=== PATIENT | male | born 1935 | race Caucasian/White ===

== ENCOUNTER 2017-05-26 13:40 | Outpatient (CLI) | payer MEDICARE, BC | END 2017-05-26 13:41 | disposition home or self-care (01) | LOC: BICRAD 13:40 | PROVIDERS: ATTEND Internal Medicine Nephrology | DX: Z03.89 Encounter for observation for other suspected diseases and conditions ruled out (principal) | CPT/HCPCS: 71046 ==

== ENCOUNTER 2017-08-02 12:33 | Outpatient (CLI) | payer MEDICARE, BC | END 2017-08-02 12:34 | disposition home or self-care (01) | LOC: BICULT 12:33 | PROVIDERS: ATTEND Internal Medicine Nephrology | DX: Z99.2 Dependence on renal dialysis (principal); Z01.818 Encounter for other preprocedural examination | CPT/HCPCS: 93970; G0365 ==

== ENCOUNTER 2017-08-30 11:38 | Day surgery (SDC) | payer MEDICARE, BC ==
--- NOTE | 2017-08-29 11:39 | HP ---
HISTORY OF PRESENT ILLNESS: This is an 81-year-old male patient who dialyzes at [facility] Tuesday, Tuesday, Tuesday from 10:30 to 2:30. The patient is followed by Dr. Betancourt and Dr Demi Marrero. The plan is for a right arm AV fistula. The patient had a right IJ hemodialysis catheter p laced at the end of May [address] Cano. Ultrasound vein mapping both arms at [facility] 08/02/2017 reveals right cephalic vein, 5.5, 4.6, 5.3 mm, 4.9 mm. Antecubital fossa, 2.5, 2. 8, 2.5 mm. Basilic vein right 3 mm, 3.1 mm, 3.1 mm, 2.5 mm. The antecubital fossa 1.6, 1.9 and 1.8 mm. The left cephalic vein 5.3, 4.6, 4.1. Antecubital fossa 4.5 mm, proximal forearm, 3.9, 2.5, 1.6 mm. Basilic vein 5.8, 3.2, 2.9 and 2 mm at the elbow, left. Nonvisualized distal left arm. The pl an is for right arm fistula, possible Aaron, possible more proximal. Regional TIVA anesthesia. TOBACCO: None. ALCOHOL: None. ALLERGIES: None. MEDICATIONS: Aspirin 81 mg a day, clonidine 0.1 mg a day, Cymbalta 60 mg a.m., diltiazem 180 mg twic e a day, lorazepam 1 mg 1/2 tablet twice a day, Lovaza 1000 mg a.m., magnesium oxide 400 mg two capsu les twice a day, metoprolol 25 mg 1/2 tablet daily always after dialysis, Multaq 400 mg twice a day, Pradaxa 75 mg twice a day, prednisone 20 mg at a.m., terazosin 5 mg at bedtime, TriCor 145 mg at bedt polina, vitamin B12 and vitamin D3. Hepatitis studies negative. PAST SURGICAL HISTORY: Appendectomy by Dr. Pedro Herring in 1985, right knee arthroscopy 1988, right ing uinal hernia repair Michael Manning M.D. 1991, Cataract surgery, right, Dr. Stroud 1997, bilateral kne e replacements 4 months apart 2002, good results. Colonoscopy 2002, Dr. Leung 2003, BPH Dr. Aaron wilson. Cardiac catheterization, no significant disease [address] Fournier, atrial fibrillation in 200 , 2007, 2008, again in 2008 and another episode in 2008 and later in 2008. Another episode in 2009. Another episode in later 2009 and then another one later 2009. Episodes of atrial fibrillation in 2010 and July. Cystoscopy. Cysto with bladder neck contractures dilated Atrial fibrillation followed by Dr. Lopez, pacemaker placed in [address] Lopez. Sleep stud y in 2013 diagnosed with sleep apnea, skin cancers removed, temporal artery biopsy 2015 Dr. Akbar, no acute findings, no inflammation. Cardiac stress test by Dr. Lopez 2016, no significant ischemia , no wall motion abnormalities. PAST MEDICAL HISTORY: As noted above past medical history; polycystic kidneys, hypertension, hypertr iglyceridemia, atrial fibrillation, cardiac stress test without significant ischemia, obstructive sle ep apnea. He does not use his CPAP, benign resting tremor followed Dr. Nunez, has had multiple CAT scans negative. He has had this, benign resting tremor most of his life. 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 He is right-handed. REVIEW OF SYSTEMS: Ten point otherwise noncontributory. PHYSICAL EXAMINATION: VITAL SIGNS: Weight 211 pounds, 69 inches, 104/57, 82, 98.1 degrees. HEENT: Unremarkable. LUNGS: Clear to auscultation. CARDIAC: Regular rate and rhythm without murmur or gallop. ABDOMEN: Soft, nontender. EXTREMITIES: Unremarkable. Mild ankle edema. ASSESSMENT AND PLAN: 1. End-stage renal disease, started dialysis at the end of May 2017, dialysis catheter placed by Dr. Cano at outpatient dialysis center. [facility] dial[facility] at [facility] on M , Tuesday, and Tuesday from 10:30 to 2:30 p.m. Plan right arm fistula. He will hold his Gustavo xa for 3 days prior. 2. Atrial fibrillation on anticoagulation, hold the Pradaxa 3 days prior. 3. Polycystic kidneys. 4. Negative cardiac stress test. 5. Pacemaker left subclavian. 6. Benign tremor. 7. Abdominal aortic aneurysm seen by Dr. Aric Cohen referred and patient [facility] to have this stented in the future.
[2017-08-29 18:00] VITALS: BMI 30.5
[2017-08-30] MEDS ORDERED: Fentanyl 100 MCG/2 ML VIAL ONE (12:35)
[2017-08-30] MEDS ORDERED: Midazolam HCl 2 mg/2 ml Vial ONE (12:35)
[2017-08-30 13:03] LABS: #Lymphocytes 1.1 thou/uL (1.20-3.40); #Monocytes 0.7 thou/uL (0.11-0.59); #Neutrophils 3.6 thou/uL (1.40-6.50); %Basophils 0.1 % (0.0-1.0); %Eosinophils 0.8 % (0.0-10.0); %Lymphocytes 20.4 % (21.0-51.0); %Neutrophils 65.6 % (42.0-75.0); Mean Corpuscular HGB CONC 31.3 g/dL (32.0-36.0); Mean Corpuscular Hemoglobin 28.1 pg (27.0-31.0); Mean Corpuscular Volume 89.7 fl (80.0-94.0); Mean Platelet Volume 6.7 fL (7.4-10.4); Platelet Count 164 thou/uL (130-400); RBC Distribution Width 16.3 % (11.5-14.5); Red Blood Cell (RBC) Count 3.91 mill/uL (4.70-6.10); White Blood Cell (WBC) Count 5.5 thou/uL (4.8-10.8)
[2017-08-30] MEDS ORDERED: Protamine Sulfate 50 MG/5 ML VIAL ONE ×2 (13:25→13:36)
[2017-08-30] MEDS ORDERED: Heparin 5,000 UNITS/ML VIAL ONE ×2 (13:25→13:36)
[2017-08-30] MEDS ORDERED: Propofol 500 MG/50 ML VIAL ONE (13:27)
[2017-08-30 13:28] LABS: Anion Gap 13 mmol/L (10-20); BUN (Urea Nitrogen) 29 mg/dL (8.4-25.7); Calc. Creatinine Clearance 16 mL/min (70-130); Calcium 9.7 mg/dL (7.8-10.44); Carbon Dioxide 31 mmol/L (23-31); Chloride 99 mmol/L (98-107); Estimated GFR-MDRD 11; Glucose 99 mg/dL (83-110); Potassium 3.5 mmol/L (3.5-5.1); Sodium 139 mmol/L (136-145)
[2017-08-30] MEDS ORDERED: Lidocaine 2% 10 ML INJ ONE (13:30)
[2017-08-30] MEDS ORDERED: Heparin 10,000 UNITS/1 ML VIAL ONE (13:32)
[2017-08-30] MEDS ORDERED: CEFAZOLIN/Water 2 GM/20 ML SYRINGE ONE (13:33)
--- NOTE | 2017-08-30 15:15 | OP ---
DATE OF PROCEDURE: 08/30/2017 PREOPERATIVE DIAGNOSIS: End-stage renal disease, left subclavian vein pacemaker. POSTOPERATIVE DIAGNOSIS: End-stage renal disease, left subclavian vein pacemaker. PROCEDURES: Right Aaron fistula. A 4 mm coronary dilator outflow. SURGEON: Dr. Michael Manning. ANESTHESIA: Regional, TIVA. PROCEDURE IN DETAIL: The patient was taken to the operating room where under regional anesthesia and intravenous sedation, right upper extremity was prepared with ChloraPrep, draped in routine fashion. Incision made between the radial artery and cephalic vein at the right wrist longitudinally, charlee d down through the skin and subcutaneous tissue and the cephalic vein dissected free, dividing branch between 4-0 silk ties and clips, ligating the stump on the hand side with 3-0 silk suture. Vein spa tulated and interrogated with coronary dilators, passing coronary dilators from a 2 mm to a 4 mm arline nary dilator throughout the length without obstruction. It was then flushed with heparinized saline solution. Bulldog clamp applied. Patient given 6000 units of heparin intravenously. Radial artery dissected free, was of good quality and branch divided between 4-0 silk ties and clips. Vein mobiliz ed and clamped proximally and distally with atraumatic vascular clamp and longitudinal arteriotomy ma de sharply and elongated with the Lala scissors end cephalic vein spatulated accordingly and end vei n to side radial artery anastomosis created with continuous suture of 6-0 Prolene. Good hemostasis n oted as vascular clamps released. Good flow noted in the cephalic vein fistula interrogated by Doppl er. Outflow branch divided between 4-0 silk ties and clips. Patient tolerated the procedure well.
[2017-08-30] MEDS ORDERED: Heparin 10,000 UNITS/ 10 ML VIAL ONE ×2 (15:57→16:36)
[2017-08-30] MEDS ORDERED: Bupivacaine HCl 0.5%/Epinephrine 1:200,000/PF 30 ml Vial ONE (16:25)
[2017-08-30] MEDS ORDERED: Lidocaine 1% PF 5 ML VIAL ONE (16:36)
[2017-08-30] MEDS ORDERED: PROPOFOL 200 MG/20 ML VIAL ONE (16:36)
== END 2017-08-30 16:45 | disposition home or self-care (01) ==
LOC: SDC 11:38
PROVIDERS: ATTEND Specialist
PROC: 031B0ZF Bypass Right Radial Artery to Lower Arm Vein, Open Approach (ICD-10-PCS; principal; 2017-08-30)
DX: I12.0 Hypertensive chronic kidney disease with stage 5 chronic kidney disease or end stage renal disease (principal); N18.6 End stage renal disease; I48.91 Unspecified atrial fibrillation; Z95.0 Presence of cardiac pacemaker; E78.5 Hyperlipidemia, unspecified; G25.0 Essential tremor; Q61.3 Polycystic kidney, unspecified; G47.33 Obstructive sleep apnea (adult) (pediatric); Z79.82 Long term (current) use of aspirin; Z79.52 Long term (current) use of systemic steroids; Z79.899 Other long term (current) drug therapy; Z88.5 Allergy status to narcotic agent; Z88.8 Allergy status to other drugs, medicaments and biological substances; Z91.041 Radiographic dye allergy status; Z91.048 Other nonmedicinal substance allergy status; Z99.2 Dependence on renal dialysis
CPT/HCPCS: 80048; 85025; 93005; 93010; J0670; J1644; J2001; J2250; J2704; J2720; J3010

== ENCOUNTER 2017-12-07 08:18 | Outpatient (CLI) | payer MEDICARE, BC ==
--- NOTE | 2017-12-07 10:04 | CT ---
CT ANGIOGRAM ABDOMEN AND PELVIS WITH CONTRAST: Date: 12/07/17 HISTORY: Abdominal aortic aneurysm. I71.4. I25.1. COMPARISON: CT abdomen without contrast from 2010. FINDINGS: Lung bases are clear. No pericardial effusion. There are multiple hepatic hypodensities suggestive of cysts. There are innumerable bilateral renal cysts. The well-defined fluid collection in the pelvis is simil ar to the comparison examination, likely benign entity. No dilated loops of large or small bowel. Spleen is unremarkable. There is mild fatty infiltration of the pancreas. There is an aortic aneurysm, multiple focal areas of ectasia. Aneurysm measures up to 5.5 cm for a cr aniocaudad length of 8.7 cm. There is also dilatation of the penetrating plaque. Left common iliac ar aislinn measures up to 2.0 cm. Moderate facet arthrosis lower lumbar spine. Small, fat-containing umbilical hernia. IMPRESSION: 1. Aneurysmal dilatation of the aorta as described above. 2. Polycystic kidney disease. 3. Multiple hepatic cysts. POS: [facility]
[2017-12-07] MEDS ORDERED: Iopamidol 370 76% 100 ML VIAL ONE (15:00)
== END 2017-12-07 08:19 | disposition home or self-care (01) ==
LOC: CT 08:18
PROVIDERS: ATTEND Internal Medicine Cardiovascular Disease
DX: I71.4 Abdominal aortic aneurysm, without rupture (principal); E78.4 Other hyperlipidemia; I25.10 Atherosclerotic heart disease of native coronary artery without angina pectoris; I11.0 Hypertensive heart disease with heart failure; N18.5 Chronic kidney disease, stage 5; N17.9 Acute kidney failure, unspecified; I48.91 Unspecified atrial fibrillation; R94.31 Abnormal electrocardiogram [ECG] [EKG]
CPT/HCPCS: 74174

== ENCOUNTER 2018-04-10 08:35 | Outpatient (CLI) | payer MEDICARE, BC ==
--- NOTE | 2018-04-10 15:14 | CT ---
CT ANGIOGRAM ABDOMEN AND PELVIS WITH AND WITHOUT CONTRAST: HISTORY: Aortic aneurysm. Endoluminal graft repair. COMPARISON: CTA 12/07/2017. FINDINGS: CT angiogram on the abdomen and pelvis performed after the intravenous administration of contrast and performed prior to the intravenous administration of contrast. Three-D rendering is provided. On the noncontrast portion of the examination, there is mild atelectasis in the lung bases. No peric ardial effusion. No intraluminal hematoma. Satisfactory appearance of the endoluminal repair of the aortic aneurysm. The graft excludes the aor tic aneurysm with exclusion of the left common iliac artery aneurysm. There is, however, contrast e xtending from the proximal graft into the sac along with what appears to be the junction of the aorti c and the iliac graft components. This appears to occur at the junction of the 2 separate modular co mponents of the graft best seen on the axial image 251 of series 8. The aortic aneurysm measures 5.2 x 5.4 for a craniocaudal length of 8.9 cm. This is similar in size to the comparison examination. There are polycystic kidneys. No dilated loops of large or small bowel. IMPRESSION: Type III-A endoleak without significant size increase of the excluded aneurysm sac. POS: [facility]
== END 2018-04-10 08:36 | disposition home or self-care (01) ==
LOC: SCSCT 08:35
PROVIDERS: ATTEND Internal Medicine
DX: Z48.812 Encounter for surgical aftercare following surgery on the circulatory system (principal); I71.4 Abdominal aortic aneurysm, without rupture; T82.330A Leakage of aortic (bifurcation) graft (replacement), initial encounter
CPT/HCPCS: 74174; 82565

== ENCOUNTER 2018-08-03 13:22 | Outpatient (CLI) | payer MEDICARE, BC ==
--- NOTE | 2018-08-03 15:05 | CT ---
HEAD CT WITHOUT CONTRAST: DATE: 08/03/2018. COMPARISON: None. HISTORY: Altered mental status: TECHNIQUE: Axial CT imaging obtained at 5 mm intervals from the vertex through the skull base without contrast. FINDINGS: There is atherosclerotic calcification of the cavernous carotid arteries. There is no displaced calv arial fracture, intracranial hemorrhage, midline shift, or mass effect. There is stable mild enlarge ment of the lateral ventricles and the third ventricle. There is periventricular hypodensity suggest ing small-vessel disease, stable. IMPRESSION: Stable appearance of the head demonstrating prominence of the ventricular system and periventricular hypodensity. In the proper clinical setting, normal pressure hydrocephalus cannot be excluded. Clin ical correlation is required. If clinically indicated, further assessment via MRI could be beneficia l. POS: [facility]
== END 2018-08-03 13:23 | disposition home or self-care (01) ==
LOC: CT 13:22
PROVIDERS: ATTEND Family Medicine
DX: R41.82 Altered mental status, unspecified (principal)
CPT/HCPCS: 70450

== ENCOUNTER 2018-08-11 10:09 | Inpatient (IN) | payer MEDICARE, BC ==
[2018-08-11 11:24] LABS: Clarity Turbid (Clear); Specific Gravity, Urine 1.023 (1.002-1.036); pH, Urine 7.8 (5.0-9.0)
[2018-08-11 11:25] LABS: Bilirubin Unable to Interpret (Negative); Blood, Urine Unable to Interpret (Negative); Glucose, Urine (Dipstick) Unable to Interpret mg/dL (Negative); Leukocyte Unable to Interpret (Negative); Nitrite Unable to Interpret (Negative); Protein, Urine (Dipstick) Unable to Interpret mg/dL (Neg-Trace); Urobilinogen UNABLE TO INTERPRET mg/dL (0.2-1.0)
[2018-08-11 11:26] LABS: RBC/HPF GREATER THAN 50-TNTC HPF (0-3)
[2018-08-11 11:28] LABS: Squamous Epithelial None Seen HPF (0-3)
[2018-08-11 11:31] LABS: Bacteria/HPF Rare-Few HPF (None Seen); Hyaline Casts/LPF NONE SEEN LPF (0-3 Hyaline)
[2018-08-11 11:39] LABS: #Lymphocytes 0.7 thou/uL (1.20-3.40); #Neutrophils 8.6 thou/uL (1.40-6.50); %Basophils 0.1 % (0.0-1.0); %Eosinophils 0.1 % (0.0-10.0); %Monocytes 9.2 % (0.0-10.0); %Neutrophils 83.6 % (42.0-75.0); Hemoglobin 9.3 g/dL (14.0-18.0); Mean Corpuscular HGB CONC 31.3 g/dL (32.0-36.0); Mean Corpuscular Hemoglobin 29.4 pg (27.0-31.0); Mean Corpuscular Volume 94.1 fL (78.0-98.0); Mean Platelet Volume 7.1 fL (7.4-10.4); Platelet Count 128 thou/uL (130-400); RBC Distribution Width 17.3 % (11.5-14.5); Red Blood Cell (RBC) Count 3.16 mill/uL (4.70-6.10); White Blood Cell (WBC) Count 10.3 thou/uL (4.8-10.8)
[2018-08-11 12:03] LABS: ALT (SGPT) 14 U/L (8-55); AST (SGOT) 26 U/L (5-34); Albumin 3.1 g/dL (3.4-4.8); Alkaline Phosphatase 39 U/L (40-150); Anion Gap 14 mmol/L (10-20); BUN (Urea Nitrogen) 52 mg/dL (8.4-25.7); Bilirubin, Total 0.6 mg/dL (0.2-1.2); Calc. Creatinine Clearance 0 mL/min (70-130); Calcium 8.6 mg/dL (7.8-10.44); Carbon Dioxide 30 mmol/L (23-31); Chloride 95 mmol/L (98-107); Estimated GFR-MDRD 11; Globulin 2.7 g/dL (2.4-3.5); Glucose 106 mg/dL (83-110); Potassium 4.1 mmol/L (3.5-5.1); Protein, Total 5.8 g/dL (5.8-8.1); Sodium 135 mmol/L (136-145)
[2018-08-11] MEDS ORDERED: Bisacodyl 5 MG TAB PO PRN (16:17)
[2018-08-11] MEDS ORDERED: Nitroglycerin 0.4 MG TAB (25 Tab Bottle) SL PRN (16:17)
[2018-08-11] MEDS ORDERED: hydrALAZINE 20 MG/ML VIAL SLOW IVP PRN (16:17)
[2018-08-11] MEDS ORDERED: Benzonatate 100 MG CAP PO PRN (16:17)
[2018-08-11] MEDS ORDERED: Ondansetron PF 4 MG/2 ML Vial IVP PRN (16:17)
[2018-08-11] MEDS ORDERED: Senokot S 8.6-50 MG TAB PO PRN (16:17)
[2018-08-11] MEDS ORDERED: cloNIDine 0.1 MG TAB PO PRN (16:17)
[2018-08-11 16:44] VITALS: BMI 22.5
--- NOTE | 2018-08-11 17:52 | HP ---
PRIMARY CARE PHYSICIAN: Sabas Marrero MD PRIMARY UROLOGIST: Aric Jaeger MD PRIMARY INVENTORY TRANSCRIBER: Jf Lopez MD CHIEF COMPLAINT: Blood in the urine. HISTORY OF PRESENTING ILLNESS: Mr. Stanley is a very pleasant 82-year-old male with past medical history of atrial fibrillation, on anticoagulation with Eliquis as well as history of end-stage renal disease, on hemodialysis and hypertension, who presented to the emergency room with above-mentioned complaints. History is mainly obtained by the patient's sister in the room. The patient has supplemented the history, but he does not talk much. According to the patient's sister, Mr. Stanley has been in [facility] since April of 2018. He fell and broke his right hip, which got fixed. Since then, he has been in the rehab. There, he has developed pneumonia about 6 weeks ago and a urinary tract infection about 2 weeks ago. He also has had his pacemaker leads replaced sometime in between. He is on Eliquis for his atrial fibrillation by his stock raiser, Dr. Lopez. He denies any recent fever or illnesses other than as mentioned above. Yesterday, they started to notice that his urine looks bloody. They called his urologist, who told them to stop the Eliquis, but his bleeding got worse today and presented to the emergency room earlier today morning. He was taken to [facility] yesterday morning and has had a Braxton inserted yesterday. I have no reports from [facility], but apparently there was a CT scan done over at that facility. Upon presentation to our emergency room today, he was hemodynamically stable with blood pressure of 148/54, pulse of 79, and temperature of 98.4. He was found to have gross hematuria. His hemoglobin was 9.3 and last baseline in our system from 2018 in August is 11. His urine was grossly bloody and unable to interpret. Dr. Jaeger was contacted by the emergency room physician and he ordered continuous bladder irrigation, which has been started in the emergency room. [facility] Hospital[facility] Team has been asked to admit the patient. He also reports some chronic generalized weakness and malaise. He reports some weight loss and poor appetite. All in all, his functional status is rather poor at baseline. PAST MEDICAL HISTORY: 1. Chronic paroxysmal atrial fibrillation, on chronic anticoagulation. 2. Sleep apnea, diagnosed in 2013. 3. History of polycystic kidney disease. 4. End-stage renal disease, on hemodialysis by Dr. Betancourt. 5. Hypertension. 6. Dyslipidemia. 7. Benign resting tremor. 8. Chronic anemia, likely of chronic kidney disease. PAST SURGICAL HISTORY: 1. Pacemaker placed in 2010 with lead revision in the last few months. 2. Skin cancer removed. 3. Temporal artery biopsy in 2015 without any acute findings. 4. Right hip fracture replacement in April 2018. 5. Appendectomy in 1985. 6. Right knee arthroscopy in 1988. 7. Right inguinal hernia repair in 1991. 8. Cataract surgery in 1997. 9. Bilateral knee replacement in 2002. 10. Colonoscopy in 2002. 11. Cardiac catheterization in 2004, which was negative for any significant coronary artery disease. 12. Cystoscopy with bladder neck contracture dilatation. 13. AAA repair. 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 His medical power of senior trial attorney is his daughter, Ms. Christopher. He has no history of drug, tobacco, or alcohol abuse. FAMILY HISTORY: Significant for multiple myeloma in his brother and his mother has had a heart attack in her later age in her 80s. CODE STATUS: Full code discussed with the patient in detail. ALLERGIES: 1. ALKYLAMINE ANTIHISTAMINES. 2. BEE STING. 3. CAFFEINE. 4. CODEINE. 5. IODINE. 6. NOVOCAIN. CURRENT MEDICATIONS: Further need to be reconciled. As per the ER, he is on followin. Magnesium oxide 400 b.i.d. 2. Metoprolol succinate 25 daily. 3. Nephro-Sammy daily. 4. Flecainide 50 mg b.i.d. 5. Protonix 40 mg daily. 6. Eliquis 2.5 mg b.i.d. 7. Duloxetine 30 mg daily. 8. Ferrous sulfate 325 mg b.i.d. 9. Diltiazem 180 b.i.d. 10. Lorazepam 0.5 b.i.d. 11. Digoxin 125 mcg daily. 12. Vitamin B12 1000 mcg daily. 13. Colace daily. 14. Calcium 200 mg 2 times daily. 15. Aspirin 81 mg daily. 16. Fenofibric acid 145 mg daily. REVIEW OF SYSTEMS: A 14-point review of systems is done. It is negative except for those mentioned in the history and physical. LABORATORY STUDIES: CBC shows hemoglobin 9.3, WBCs 10.3, platelet count 128, and 83% neutrophils. Serum chemistry shows sodium 135, chloride 95, BUN 52, and creatinine 5.12. Urinalysis, multiple rbc's and gross blood. PHYSICAL EXAMINATION: VITAL SIGNS: Most recent vital signs; temperature 98.3, pulse of 69, respirations 20, saturating 97% on room air, and blood pressure 143/59. GENERAL: He is lying comfortably in bed. Awake, alert, and oriented x3. He is in no acute distress. He does appear chronically rather pale. HEENT: Mucous membrane is slightly dry. No oropharyngeal exudate or erythema. Head is normocephalic and atraumatic. Pupils are equal and reactive to light and accommodation. Extraocular movement intact. NECK: Supple without any lymphadenopathy, JVD, or bruit. CHEST: Clear to auscultation without any wheezing, rales, or rhonchi. HEART: Rate and rhythm are regular without any murmurs, rubs, or gallops. ABDOMEN: Soft, nontender, and nondistended with positive bowel sounds. EXTREMITIES: Free of any cyanosis, clubbing, or edema. NEUROLOGIC: Nonfocal. GENITOURINARY: His Braxton bag contains light-tinged urine with some clots. SKIN: Free of any rashes or bruises. PSYCHIATRIC: Normal affect. IMPRESSION AND PLAN: 1. Hematuria. I have discussed the case with his blanket winder helper, Dr. Betancourt, who will try to get the results of the CT scan from [facility]. Meanwhile, he will continue on continuous bladder irrigation until clear as per his urologist, Dr. Jaeger. We will monitor H and H. Eliquis has been held since yesterday and we will continue to hold it for now along with holding the aspirin as well. His presentation is somewhat suspicious of bladder tumor/carcinoma. He was not able to tell me what kind of prostate procedures he has had done in the past. We will send for PSA for now. 2. Acute on chronic anemia. I do not have any recent baseline hemoglobin on the patient. We will monitor H and H closely and transfuse as needed. I do not think hematuria is contributing to any worsening of his anemia and this is mostly anemia of chronic kidney disease. We will order erythropoietin with dialysis 3 times a week. 3. End-stage renal disease, on chronic hemodialysis. I have discussed the case with Dr. Betancourt and the patient will undergo dialysis in the morning. We will monitor his kidney function and avoid any nephrotoxic medications. 4. History of atrial fibrillation, on chronic anticoagulation. We will restart his flecainide once the dose is confirmed along with restarting his diltiazem and beta-fermin. Hold Eliquis for obvious reasons. 5. Hypertension. Restart home medications once confirmed. 6. Dyslipidemia. Restart home medications once confirmed. 7. Heart healthy diet. 8. We will continue Occupational Therapy and Physical Therapy while he is here as he was in the rehab. 9. Code status. Full code discussed with the patient. 10. Deep venous thrombosis and gastrointestinal prophylaxis in the form of non-pharmacological deep venous thrombosis prophylaxis with sequential compression devices and Pepcid b.i.d. DISPOSITION: Mr. Stanley is currently being admitted to medical floor for hematuria for further workup. Estimated length of stay at this time is at least 2 to 3 midnights. Further management will depend upon his clinical course. Job ID: [id number]
[2018-08-11 17:58] LABS: Hep B Surf Ag Non-Reactive S/CO (NonReactive)
[2018-08-11] MEDS: Famotidine 20 MG TAB PO SCH (20:38)
[2018-08-11] MEDS: Acetaminophen 325 MG TAB PO PRN (20:38)
--- NOTE | 2018-08-11 21:42 | CON ---
DATE OF CONSULTATION: This is an 82-year-old white male, who I was asked to see in the emergency room today, just after lunch time today stated that see 11 August 2018. This is a patient I have seen in my office since Dr. Mckay Rincon retired, he had been seeing him. He had the laser TURP done by him in 2003. He had a history of developing some urethral stricture disease and bladder neck contraction following that and I think that was in 2010 that was opened up. He has a known history of adult polycystic kidney disease and he actually has gone into kidney failure and he is dialyzed every Tuesday, Tuesday, and Tuesday by Dr. Betancourt, his dietetic tech. He also has a history of atrial fibrillation and has been on Eliquis. I am talking with his , she states that Dr. Marrero, his family doctor had treated him for urinary tract infection. She thinks 3 or 4 weeks ago and treated with him about a week's worth of antibiotics. She stated that a couple of weeks ago they started noticing some pinkish tinge to the urine and then that got worse yesterday when his urine became very grossly bloody. At that point, he went into the [facility] [place] and I would pull up his records from that visit. He had a CBC done there, his hemoglobin was 10.9, platelet count 165, normal white count. No urinalysis or culture was set up. He did have a CAT scan that showed the polycystic kidney disease. There was no evidence of hydronephrosis or ureteral stones. There was no obvious evidence for any bleeding around the kidneys. 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 There, they put a 22-Anguillan Braxton three-way in and plug the irrigation port and sent him home. He was not there for very long. He persisted with grossly bloody urine through the night and was bleeding around the catheter some that is why he came in to [place] today. His hemoglobin today is 9.3, his platelet count is 128, his creatinine is 5.12. He would generally be dialyzed today, his potassium is normal. I believe his Eliquis has been held since last night. Coags were not done here at [facility] or at [facility]. Through his indwelling Braxton, I was able to irrigate out a moderate amount of clot with a liter of sterile water. I got the urine actually looking light pink clear if we brought the catheter down some traction while we irrigated. He does have some old dark blood oozing around the catheter on to a diaper site. I think most likely he is having prostatic bleeding. I did start continuous bladder irrigation on him through his indwelling three-way catheter and showed the nurses have to deal with that. I have talked with Dr. Betancourt and let him know what the patient's blood work was yesterday and today and let him know that a CAT scan was done. He is due for dialysis and I let Dr. Betancourt decide whether he will dialyze him today or tomorrow, hopefully he can do that with little or no heparin. We will ask the hospitalist group to admit this patient as he has other multiple medical problems and we will continue him on the bladder irrigation as necessary over the weekend. My hope would be that this will clear, however, if does not on Tuesday, we may consider a cysto on him. I would not plan on doing anything sooner than that short of him having problems with the catheter not draining or with him, here having significant bleeding or is becoming hemodynamically unstable. I do feel like I have gotten most of the clot out currently and the hope of the continuous irrigation, we will keep him from clotting up. I have went ahead and typed and screened him. We will go ahead and also ask that a urine culture be set up. I do not know with him being afebrile with a normal white count whether he needs to be started on antibiotics currently. ADDENDUM: PAST SURGICAL HISTORY: Includes appendectomy, right knee arthroscopy, right inguinal hernia, cataract surgery, bilateral total knee replacements that was back in 2002. He had laser surgery by Dr. Rincon in 2003. Cardiac catheterization by Dr. Fournier. He has had numerous episodes of atrial fibrillation and then I believe he has had cardioversions for. His current broach grinder is actually Dr. Lopez. His current station cleaning porter is Dr. Marrero. ALLERGIES: HE HAS TO SOME INSECTS. HE HAS ALLERGIES TO LACTOSE AND CAFFEINE. HE HAS ALLERGIES TO IODINE DYE, CODEINE, NOVOCAIN, AND SOME ANTIHISTAMINES. THE LAST TIME HE WAS SEEN IN MY OFFICE WAS MARCH 28, 2018. HE AT THAT POINT HAD A NORMAL DIGITAL RECTAL EXAM. HIS PSA IN FEBRUARY 2017 WAS 1.26. I HAD HIM ON 5 MG OF TERAZOSIN FOR SOME LOWER URINARY TRACT SYMPTOMS. Job ID: [id number]
--- NOTE | 2018-08-12 01:27 | CON ---
DATE OF CONSULTATION: HISTORY OF PRESENT ILLNESS: Mr. Stanley is an 82-year-old white male with ESRD, atrial fibrillation, and admitted for gross hematuria. He initially presented with this chief complaint 2 days ago. He was seen at [facility]. At that time, he felt he was stable. He had a CT scan of the abdomen and pelvis done. No significant abnormality except findings of lesion in the bladder. This could be blood products or simply a diverticulum. We are being consulted for his maintenance hemodialysis. He is due for dialysis supposedly today. But I have decided to hold the dialysis till tomorrow due to the recent urological bleed. REVIEW OF SYSTEMS: No chest pain or shortness of breath. Positive for gross hematuria. No dysuria. No urinary frequency. No productive cough. No fever or chills. Occasional confusion. Occasional tremors. No diarrhea or constipation. No abdominal pain. No fever or chills. PAST MEDICAL HISTORY: 1. Benign resting tremor ? of essential tremor. 2. 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 3. Chronic atrial fibrillation. 4. Obstructive sleep apnea. 5. History of multiple renal disease. 6. Dyslipidemia. 7. Chronic anemia of chronic renal disease. 8. History of dementia. 9. History of low bladder outlet obstruction from a bladder neck contracture. 10. BPH. PAST SURGICAL HISTORY: Includes 1. Status post cystoscopy with dilatation of the urethral stricture. 2. Status post right knee arthroscopy. 3. Status post right hip surgery. 4. Status post cataract surgery-right eye. 5. Status post right inguinal hernia repair. 6. Status post bilateral knee replacement. 7. Status post AV fistula placement. 8. Status post cuffed hemodialysis catheter placement. 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 He is , currently in a residential. He has one child. He lives in [place]. No history of smoking. No alcohol. No IV drug abuse. Status post multiple blood transfusion. ALLERGIES: CAFFEINE, CODEINE, IODINE, NOVOCAIN, ANTIHISTAMINES. TRAUMA: Status post right hip fracture. IMMUNIZATION: Up-to-date. HOSPITALIZATIONS: Please see past medical history. PHYSICAL EXAMINATION: VITAL SIGNS: Blood pressure is 143/59, heart rate 69, respiratory rate 20, temperature 98.2, and pulse ox 97%. GENERAL: Noted to be awake, alert, comfortable, not in overt distress. He is disoriented x1. SKIN: Adequate turgor. HEENT: Slightly pale conjunctivae. Anicteric sclerae. No neck mass. No carotid bruits. No JVD. CHEST: No deformities. LUNGS: Clear breath sounds. No wheezing. No crackles. HEART: Normal sinus rhythm. No murmur. No gallops. No rubs. ABDOMEN: Globular, soft, nontender. No masses. EXTREMITIES: No edema. No deformities. NEUROLOGICAL: Oriented to 2 spheres, moving all extremities. Positive for occasional tremors. No ataxia. LABORATORY DATA: August 11, 2018; white count 10.3, hemoglobin 9.3. Sodium 135, potassium 4.1, chloride 95, carbon dioxide 30, BUN 52, creatinine 5.12, calcium is 8.6, albumin 3.1, vitamin B1 is 1.1. CT scan of the abdomen and pelvis-done at [facility], bladder lesion ? of blood debris. August 03, 2018, CT scan of the brain shows stable appearance of the ventricular system and periventricular system. Could not exclude normal-pressure hydrocephalus. ASSESSMENT AND PLAN: 1. End-stage renal disease, stable. We will continue current 3 times a week hemodialysis. No heparin will be used with this dialysis. I have scheduled him for dialysis tomorrow instead of today due to the recent urological bleed. Overall, he is doing well. 2. Dementia, confusion. CT scan done in August 03 suggested the possibility of a normal-pressure hydrocephalus. MRI is being suggested. 3. Gross hematuria-the patient has been on anticoagulation. This has been discontinued, p.r.n. blood transfusion. Urology is following. 4. Chronic anemia-Epogen started at 75,00 units subcu q.week. Job ID: [id number]
[2018-08-12 07:00] LABS: Anion Gap 11 mmol/L (10-20); BUN (Urea Nitrogen) 60 mg/dL (8.4-25.7); Calc. Creatinine Clearance 10 mL/min (70-130); Calcium 8.6 mg/dL (7.8-10.44); Carbon Dioxide 31 mmol/L (23-31); Chloride 96 mmol/L (98-107); Estimated GFR-MDRD 10; Glucose 85 mg/dL (83-110); Potassium 4.2 mmol/L (3.5-5.1); Sodium 134 mmol/L (136-145)
[2018-08-12 08:50] LABS: #Monocytes 0.6 thou/uL (0.11-0.59); #Neutrophils 4.9 thou/uL (1.40-6.50); %Basophils 0.1 % (0.0-1.0); %Eosinophils 0.3 % (0.0-10.0); %Lymphocytes 15.5 % (21.0-51.0); %Monocytes 9.1 % (0.0-10.0); Hemoglobin 8.2 g/dL (14.0-18.0); Mean Corpuscular HGB CONC 31.9 g/dL (32.0-36.0); Mean Corpuscular Hemoglobin 29.8 pg (27.0-31.0); Mean Corpuscular Volume 93.3 fL (78.0-98.0); Mean Platelet Volume 7.4 fL (7.4-10.4); Platelet Count 113 thou/uL (130-400); Platelet Morphology Comment Appears Decreased; RBC Distribution Width 17.2 % (11.5-14.5); Red Blood Cell (RBC) Count 2.74 mill/uL (4.70-6.10); White Blood Cell (WBC) Count 6.6 thou/uL (4.8-10.8)
[2018-08-12 08:51] LABS: MDiff Complete? YES
[2018-08-12] MEDS ORDERED: Epoetin (ESRD) 20,000 UNITS/ML SC SCH (09:00)
[2018-08-12] MEDS ORDERED: Milk Of Magnesia 30 ML UDCUP PO PRN (09:00)
--- NOTE | 2018-08-12 09:07 | PRG ---
DATE OF SERVICE: 08/12/2018 SERVICE: Renal Medicine. SUBJECTIVE: Mr. Stanley is an 82-year-old white male, who was admitted for gross hematuria. He has been evaluated by Dr. Jaeger. He currently has a Braxton catheter, undergoing a bladder lavage. We are following him up for his maintenance hemodialysis. I have scheduled him for his regular dialysis today. Due to the recent gross hematuria, no heparin will be used with his dialysis. No other complaints today. He denies any chest pain or shortness of breath. OBJECTIVE: VITAL SIGNS: Blood pressure is noted at 181/72, heart rate 83, respiratory rate 18, temperature 98.4, and pulse ox 97%. GENERAL: Awake, alert, comfortable, not in distress. SKIN: Adequate turgor. HEENT: He has slightly pale conjunctivae. Anicteric sclerae. NECK: No neck mass. No carotid bruits. No JVD. CHEST: No deformities. LUNGS: Clear breath sounds. HEART: Normal sinus rhythm. No murmur. No gallops. No rubs. ABDOMEN: Globular, soft, nontender. No masses. EXTREMITIES: No edema. No deformities. MEDICATIONS: Medications of August 12, 2018, was reviewed. LABORATORY DATA: Laboratories of August 11, 2018, and hemoglobin 9.3. On August 12, 2018, sodium 134, potassium 4.2, chloride 96, carbon dioxide 21, BUN 60, creatinine 5.31, TSH 4.57 and calcium 8.6. ASSESSMENT AND PLAN: 1. Gross hematuria - last hemoglobin was 9.3. We will be rechecking another hemoglobin level with this patient today. Urology is following. He is off his Eliquis. 2. End-stage renal disease, stable. We will continue current 3 times a week hemodialysis with this patient. Fluid removal only as tolerated. As previously mentioned, no heparin will be used due to recent gross hematuria. 3. Chronic anemia - continuing weekly Epogen with this patient, p.r.n. blood transfusion. Overall, agree with current management. Job ID: [id number]
[2018-08-12] MEDS ORDERED: Polyethylene Glycol 3350 17 GM Packet PO SCH (10:30)
[2018-08-12] MEDS ORDERED: Magnesium Oxide 400 MG TAB PO SCH (10:30)
[2018-08-12] MEDS ORDERED: DULoxetine 30 MG CAP PO SCH (10:30)
[2018-08-12] MEDS ORDERED: Fish Oil 1,000 MG CAP PO SCH (10:30)
[2018-08-12] MEDS ORDERED: Digoxin 0.125 MG TAB PO SCH (10:30)
[2018-08-12] MEDS ORDERED: Ferrous Sulfate 325 MG TAB PO SCH (10:30)
[2018-08-12] MEDS ORDERED: Diltiazem HCl SR 60 mg Capsule PO SCH (10:30)
[2018-08-12] MEDS ORDERED: Folic Acid/Vit B Comp W-C PO SCH (10:30)
[2018-08-12] MEDS ORDERED: Docusate 100 MG CAP PO SCH (10:30)
[2018-08-12] MEDS: Epoetin (ESRD) 20,000 UNITS/ML SC SCH (14:14)
[2018-08-12] MEDS: Docusate 100 MG CAP PO SCH ×2 (14:14→20:52)
[2018-08-12] MEDS: Digoxin 0.125 MG TAB PO SCH (14:14)
[2018-08-12] MEDS: DULoxetine 30 MG CAP PO SCH (14:15)
[2018-08-12] MEDS: Flecainide 50 MG TAB PO SCH ×2 (14:20→20:51)
[2018-08-12] MEDS: Folic Acid/Vit B Comp W-C PO SCH (14:20)
--- NOTE | 2018-08-12 14:34 | PDOC.PN ---
- Subjective Encounter Start Date: 08/12/18 Encounter Start Time: 14:32 Subjective: FEELS WEAK BUT DENIES ANY NEW COMPLAINTS -: seen and examined in dialysis - Objective Resuscitation Status - Order Detail: 08/11/18 16:58 Resuscitation Status Routine Resuscitation Status: FULL: Full Resuscitation Discussed with: discussed w pt MAR Reviewed: Yes Vital Signs & Weight: Vital Signs (12 hours) Temp Pulse Resp BP Pulse Ox 08/12/18 14:14 83 08/12/18 14:11 83 08/12/18 08:00 97 08/12/18 07:25 98.4 F 83 18 181/72 H 97 08/12/18 04:00 98.4 F 81 16 158/63 H 96 Weight Admit Weight 152 lb 8 oz Weight 152 lb 8 oz I&O: 08/11/18 08/12/18 08/13/18 06:59 06:59 06:59 Intake Total 3040 Output Total 3350 Balance -310 Result Diagrams: 08/12/18 05:28 08/12/18 05:28 Additional Labs: Microbiology 08/11/18 10:49 Urine ulbin catheter Urine Culture - Preliminary Gram Negative Sacha 08/11/18 10:49 Urine lubin catheter Urine Culture - Preliminary Escherichia coli Phys Exam - Physical Examination pale and weak looking. HEENT: PERRLA, moist MMs, sclera anicteric, oral pharynx no lesions Neck: no nodes, no JVD, supple, full ROM Respiratory: no wheezing, no rales, no rhonchi, clear to auscultation bilateral Cardiovascular: RRR, no significant murmur Gastrointestinal: soft, non-tender, no distention, positive bowel sounds Lubin with gross bloody urine w clots Musculoskeletal: no edema, pulses present Neurological: non-focal, normal sensation, moves all 4 limbs Psychiatric: normal affect, A&O x 3 Dx/Plan (1) Hematuria Code(s): R31.9 - HEMATURIA, UNSPECIFIED Status: Acute (2) UTI (urinary tract infection) Status: Acute Comment: E.Coli >100,000 (3) Acute on chronic blood loss anemia Code(s): D62 - ACUTE POSTHEMORRHAGIC ANEMIA Status: Acute (4) ESRD (end stage renal disease) on dialysis Code(s): N18.6 - END STAGE RENAL DISEASE; Z99.2 - DEPENDENCE ON RENAL DIALYSIS Status: Chronic (5) Paroxysmal atrial fibrillation Code(s): I48.0 - PAROXYSMAL ATRIAL FIBRILLATION Status: Acute (6) HTN (hypertension) Code(s): I10 - ESSENTIAL (PRIMARY) HYPERTENSION Status: Chronic (7) HLD (hyperlipidemia) Code(s): E78.5 - HYPERLIPIDEMIA, UNSPECIFIED Status: Chronic - Plan DVT proph w/SCDs cont to hold Eliquis -: cont CBI.urology also following.Start Antibiotics for UTI.follow Cx -: Monitor H/H.Transfuse prn.cont Epogen -: HD per schedule. monitor renal Fx -: home meds as below.stable for now * . Review of Systems - Review of Systems Constitutional: weakness, malaise. negative: fever, chills, sweats, other Respiratory: negative: Cough, Dry, Shortness of Breath, Hemoptysis, SOB with Excertion, Pleuritic Pain, Sputum, Wheezing Cardiovascular: negative: chest pain, palpitations, orthopnea, paroxysmal nocturnal dyspnea, edema, light headedness, other Gastrointestinal: negative: Nausea, Vomiting, Abdominal Pain, Diarrhea, Constipation, Melena, Hematochezia, Other Genitourinary: Hematuria. negative: Dysuria, Frequency, Incontinence, Retention , Other Musculoskeletal: negative: Neck Pain, Shoulder Pain, Arm Pain, Back Pain, Hand Pain, Leg Pain, Foot Pain, Other Skin: negative: Rash, Lesions, Del, Bruising, Other Neurological: negative: Weakness, Numbness, Incoordination, Change in Speech, Confusion, Seizures, Other - Medications/Allergies Allergies/Adverse Reactions: Allergies Allergy/AdvReac Type Severity Reaction Status Date / Time Antihistamines - Alkylamine Allergy Mild Verified 08/11/18 16:15 caffeine Allergy Verified 08/11/18 16:15 codeine Allergy Verified 08/11/18 16:15 iodine Allergy Verified 08/11/18 16:15 Novacaine Allergy Uncoded 08/11/18 16:15 Medications: Current Medications Acetaminophen (Tylenol) 650 mg PO Q4H PRN PRN Reason: Headache/Fever/Mild Pain (1-3) Last Admin: 08/11/18 20:38 Dose: 650 mg Benzonatate (Tessalon) 100 mg PO Q6H PRN PRN Reason: Cough Bisacodyl (Dulcolax) 10 mg PO DAILYPRN PRN PRN Reason: Constipation Clonidine (Catapres) 0.1 mg PO Q4H PRN PRN Reason: SBP >160 ____ Digoxin (Lanoxin) 0.125 mg PO DAILY [facility] Last Admin: 08/12/18 14:14 Dose: Not Given Diltiazem HCl (Cardizem Sr) 180 mg PO BID [facility] Docusate Sodium (Colace) 100 mg PO BID [facility] Last Admin: 08/12/18 14:14 Dose: Not Given Duloxetine HCl (Cymbalta) 30 mg PO DAILY [facility] Last Admin: 08/12/18 14:15 Dose: Not Given Epoetin Balaji (Procrit) 7,500 units SC Q7D [facility] Last Admin: 08/12/18 14:14 Dose: 7,500 units Famotidine (Pepcid) 20 mg PO QPM [facility] Last Admin: 08/11/18 20:38 Dose: 20 mg Ferrous Sulfate (Feosol) 325 mg PO BID [facility] Fish Oil (Fish Oil) 1,000 mg PO DAILY [facility] Flecainide Acetate (Tambocor) 50 mg PO BID [facility] Last Admin: 08/12/18 14:20 Dose: Not Given Hydralazine HCl (Apresoline) 10 mg SLOW IVP Q4H PRN PRN Reason: SBP > 180 and HR < 70 Lorazepam (Ativan) 0.5 mg PO BIDPRN PRN PRN Reason: Agitation Magnesium Hydroxide (Milk Of Magnesium) 30 ml PO DAILYPRN PRN PRN Reason: Constipation Magnesium Oxide (Magnesium Oxide) 400 mg PO BID [facility] Metoprolol Succinate (Toprol Xl) 25 mg PO DAILY [facility] Last Admin: 08/12/18 14:21 Dose: Not Given Nitroglycerin (Nitrostat) 0.4 mg SL Q5MIN PRN PRN Reason: Chest Pain Ondansetron HCl (Zofran) 4 mg IVP Q6H PRN PRN Reason: Nausea/Vomiting Pantoprazole Sodium (Protonix) 40 mg PO DAILY [facility] Last Admin: 08/12/18 14:12 Dose: 40 mg Polyethylene Glycol (Miralax) 17 gm PO DAILY [facility] Senna/Docusate Sodium (Senokot S) 2 tab PO BID PRN PRN Reason: Constipation Vitamin B Complex/Vit C/Folic Acid (Nephro-Sammy Tablet) 1 tab PO DAILY [facility] Last Admin: 08/12/18 14:20 Dose: Not Given
[2018-08-12] MEDS: cefTRIAXone\\ROCEPHIN 1 GM in Sodium Chloride 0.9% 100 ML IVPB SCH (15:45)
[2018-08-12] MEDS ORDERED: Heparin 10,000 UNITS/ 10 ML VIAL ONE (18:00)
[2018-08-12] MEDS: Acetaminophen 325 MG TAB PO PRN (19:21)
[2018-08-12] MEDS: Famotidine 20 MG TAB PO SCH (20:51)
[2018-08-12] MEDS: Ferrous Sulfate 325 MG TAB PO SCH (20:51)
[2018-08-12] MEDS: Magnesium Oxide 400 MG TAB PO SCH (20:52)
[2018-08-12] MEDS: Diltiazem HCl SR 60 mg Capsule PO SCH (20:53)
[2018-08-12] MEDS: Lorazepam 0.5 MG TAB PO PRN (22:16)
--- NOTE | 2018-08-13 01:17 | CON ---
DATE OF CONSULTATION: 08/12/2018 REASON FOR CONSULTATION: 1. Gross hematuria. 2. Anticoagulation secondary to atrial fibrillation with Eliquis and secondary to dialysis with platelet dysfunction and heparin use. HISTORY OF PRESENT ILLNESS: Mr. Glen Stanley is a retired 82-year-old former [employer] who has been evaluated at [facility] and here at the [facility]. The patient has been seeing Dr. Jaeger's since Dr. Mckay Rincon retired from practice. The patient underwent previous laser ablation of the prostate gland in treatment of bladder neck contracture. He has longstanding history of adult autism, dominant polycystic kidney disease, and has been in kidney failure, and is followed by Dr. Betancourt for that. INTERVAL EVENTS: Mr. Stanley had a 3-way Braxton catheter placed at [facility] and has undergone continuous bladder irrigations since Dr. Jaeger's evaluation of him and had some clot evacuation performed. The patient has had intermittent episodes of hematuria during the day today and has remained on continuous bladder irrigation throughout the day. Today, he is tolerating diet and is in good spirits. PHYSICAL EXAMINATION: VITAL SIGNS: Temperature is 99.7, pulse 77, respirations 20, O2 saturation 99%, blood pressure is 122/55. HEAD, EYES, EARS, NOSE, AND THROAT: Extraocular movements are intact. Sclerae anicteric. Oropharynx is clear. NECK: Supple. LUNGS: Clear to auscultation bilaterally. CARDIAC: Irregularly irregular rhythm, but that is rate controlled. ABDOMEN: Soft and nontender. GENITOURINARY: An indwelling Braxton catheter remains in place. This is secured to the patient's leg by a StatLock device. I performed him hand irrigation of the patient's bladder today with about 1 L of sterile saline, was not able to clear all the clots from the patient's bladder. There were also small particulates present, which seems to be largely clear. There is a little bit of hematuria which does not clear with irrigation suggesting either residual clot or continuing small levels of bleeding. A catheter set at the bedside bag and is placed on low rate continuous bladder irrigation. EXTREMITIES: Appear within normal limits. No clubbing, cyanosis, or edema. LABORATORY STUDIES: The patient's white count is 6600, hemoglobin is 8.2 with hematocrit of 25.6, down from 9.3 and 29.7 yesterday. There is no evidence of left shift today. The patient's creatinine is 5.31, blood urea nitrogen of 60 on dialysis. ASSESSMENT: Gross hematuria secondary to anticoagulation with history of previous prostate surgery. I agree with Dr. Jaeger's assessment that the bleeding is likely prostatic in origin, probably bleeds backwards into the bladder producing small clots. The patient will be appropriately maintained on continuous bladder irrigation as is going on now and hand irrigation when clots appear. At present time, there does not appear to be large amount of clot in the bladder based on the exam. The patient should undergo cystoscopic evaluation, which likely will be accomplished as an outpatient in Dr. Jaeger's office. TIME SPENT: Over 35 minutes of consultation, assessment, and management of gross hematuria time was spent today, exclusive of any additional procedures. Job ID: [id number]
[2018-08-13 07:12] LABS: #Lymphocytes 0.8 thou/uL (1.20-3.40); #Monocytes 0.5 thou/uL (0.11-0.59); %Basophils 0.3 % (0.0-1.0); %Eosinophils 0.4 % (0.0-10.0); %Lymphocytes 12.5 % (21.0-51.0); %Monocytes 8.5 % (0.0-10.0); %Neutrophils 78.2 % (42.0-75.0); Hemoglobin 7.8 g/dL (14.0-18.0); Mean Corpuscular Hemoglobin 29.6 pg (27.0-31.0); Mean Corpuscular Volume 92.5 fL (78.0-98.0); Mean Platelet Volume 7.5 fL (7.4-10.4); Platelet Count 130 thou/uL (130-400); RBC Distribution Width 17.3 % (11.5-14.5); Red Blood Cell (RBC) Count 2.63 mill/uL (4.70-6.10); White Blood Cell (WBC) Count 6.3 thou/uL (4.8-10.8)
[2018-08-13 07:28] LABS: Anion Gap 10 mmol/L (10-20); BUN (Urea Nitrogen) 34 mg/dL (8.4-25.7); Calc. Creatinine Clearance 15 mL/min (70-130); Calcium 8.4 mg/dL (7.8-10.44); Carbon Dioxide 33 mmol/L (23-31); Chloride 100 mmol/L (98-107); Estimated GFR-MDRD 16; Glucose 106 mg/dL (83-110); Potassium 3.9 mmol/L (3.5-5.1); Sodium 139 mmol/L (136-145)
[2018-08-13] MEDS: Fish Oil 1,000 MG CAP PO SCH (08:35)
[2018-08-13] MEDS: Folic Acid/Vit B Comp W-C PO SCH (08:35)
[2018-08-13] MEDS: Diltiazem HCl SR 60 mg Capsule PO SCH ×2 (08:35→20:21)
[2018-08-13] MEDS: Magnesium Oxide 400 MG TAB PO SCH ×2 (08:35→20:23)
[2018-08-13] MEDS: Ferrous Sulfate 325 MG TAB PO SCH ×2 (08:35→20:23)
[2018-08-13] MEDS: Docusate 100 MG CAP PO SCH (08:35)
[2018-08-13] MEDS: DULoxetine 30 MG CAP PO SCH (08:36)
[2018-08-13] MEDS: Flecainide 50 MG TAB PO SCH ×2 (08:36→20:21)
[2018-08-13] MEDS: Digoxin 0.125 MG TAB PO SCH (08:37)
[2018-08-13] MEDS ORDERED: Polyethylene Glycol 3350 17 GM Packet PO SCH (09:00)
[2018-08-13] MEDS: Lorazepam 0.5 MG TAB PO PRN ×2 (09:39→20:23)
[2018-08-13] MEDS: Acetaminophen 325 MG TAB PO PRN (11:19)
--- NOTE | 2018-08-13 13:23 | PDOC.PN ---
- Subjective Encounter Start Date: 08/13/18 Encounter Start Time: 13:21 Subjective: feels much better today. -: c/o loose stools.no abd pain/N/V - Objective Resuscitation Status - Order Detail: 08/11/18 16:58 Resuscitation Status Routine Resuscitation Status: FULL: Full Resuscitation Discussed with: discussed w pt CARSON Reviewed: Yes Vital Signs & Weight: Vital Signs (12 hours) Temp Pulse Resp BP Pulse Ox 08/13/18 08:37 60 08/13/18 07:50 97.6 F 60 18 123/53 L 98 08/13/18 04:00 97.7 F 60 17 129/58 L 98 Weight Admit Weight 152 lb 8 oz Weight 152 lb 8 oz I&O: 08/12/18 08/13/18 08/14/18 06:59 06:59 06:59 Intake Total 3040 3000 Output Total 3350 8500 Balance -310 -5500 Result Diagrams: 08/13/18 06:07 08/13/18 06:07 Additional Labs: Microbiology 08/11/18 10:49 Urine lubin catheter Urine Culture - Final Escherichia coli Phys Exam - Physical Examination Constitutional: NAD pale HEENT: PERRLA, moist MMs, sclera anicteric, oral pharynx no lesions Neck: no nodes, no JVD, supple, full ROM Respiratory: no wheezing, no rales, no rhonchi, clear to auscultation bilateral Cardiovascular: RRR, no significant murmur Gastrointestinal: soft, non-tender, no distention, positive bowel sounds Musculoskeletal: no edema, pulses present Neurological: non-focal, normal sensation, moves all 4 limbs Psychiatric: normal affect, A&O x 3 Skin: no rash Dx/Plan (1) Hematuria Code(s): R31.9 - HEMATURIA, UNSPECIFIED Status: Acute Comment: on CBI (2) UTI (urinary tract infection) Status: Acute Comment: E.Coli >100,000 (3) Acute on chronic blood loss anemia Code(s): D62 - ACUTE POSTHEMORRHAGIC ANEMIA Status: Acute Comment: ON EPOGEN (4) ESRD (end stage renal disease) on dialysis Code(s): N18.6 - END STAGE RENAL DISEASE; Z99.2 - DEPENDENCE ON RENAL DIALYSIS Status: Chronic (5) Paroxysmal atrial fibrillation Code(s): I48.0 - PAROXYSMAL ATRIAL FIBRILLATION Status: Chronic (6) HTN (hypertension) Code(s): I10 - ESSENTIAL (PRIMARY) HYPERTENSION Status: Chronic (7) HLD (hyperlipidemia) Code(s): E78.5 - HYPERLIPIDEMIA, UNSPECIFIED Status: Chronic - Plan continue antibiotics, PT/OT, respiratory therapy, incentive spirometry, out of bed/ambulate, DVT proph w/SCDs cont CBI.urine clearing up.monitor.on antibiotics -: monitor H/H.may need transfusions. -: dialysis per schedule -: cont to hold OAC.stop colace and Miralax.add probiotic -: am labs.home when urine clears up & OK w urology * . Review of Systems - Review of Systems Constitutional: weakness, malaise. negative: fever, chills, sweats, other Respiratory: negative: Cough, Dry, Shortness of Breath, Hemoptysis, SOB with Excertion, Pleuritic Pain, Sputum, Wheezing Cardiovascular: negative: chest pain, palpitations, orthopnea, paroxysmal nocturnal dyspnea, edema, light headedness, other Gastrointestinal: negative: Nausea, Vomiting, Abdominal Pain, Diarrhea, Constipation, Melena, Hematochezia, Other Genitourinary: negative: Dysuria, Frequency, Incontinence, Hematuria, Retention , Other Musculoskeletal: negative: Neck Pain, Shoulder Pain, Arm Pain, Back Pain, Hand Pain, Leg Pain, Foot Pain, Other Neurological: negative: Weakness, Numbness, Incoordination, Change in Speech, Confusion, Seizures, Other - Medications/Allergies Allergies/Adverse Reactions: Allergies Allergy/AdvReac Type Severity Reaction Status Date / Time Antihistamines - Alkylamine Allergy Mild Verified 08/11/18 16:15 caffeine Allergy Verified 08/11/18 16:15 codeine Allergy Verified 08/11/18 16:15 iodine Allergy Verified 08/11/18 16:15 Novacaine Allergy Uncoded 08/11/18 16:15 Medications: Current Medications Acetaminophen (Tylenol) 650 mg PO Q4H PRN PRN Reason: Headache/Fever/Mild Pain (1-3) Last Admin: 08/13/18 11:19 Dose: 650 mg Benzonatate (Tessalon) 100 mg PO Q6H PRN PRN Reason: Cough Bisacodyl (Dulcolax) 10 mg PO DAILYPRN PRN PRN Reason: Constipation Clonidine (Catapres) 0.1 mg PO Q4H PRN PRN Reason: SBP >160 ____ Digoxin (Lanoxin) 0.125 mg PO DAILY [facility] Last Admin: 08/13/18 08:37 Dose: Not Given Diltiazem HCl (Cardizem Sr) 180 mg PO BID [facility] Last Admin: 08/13/18 08:35 Dose: 180 mg Docusate Sodium (Colace) 100 mg PO BID [facility] Last Admin: 08/13/18 08:35 Dose: 100 mg Duloxetine HCl (Cymbalta) 30 mg PO DAILY [facility] Last Admin: 08/13/18 08:36 Dose: 30 mg Epoetin Balaji (Procrit) 7,500 units SC Q7D [facility] Last Admin: 08/12/18 14:14 Dose: 7,500 units Famotidine (Pepcid) 20 mg PO QPM [facility] Last Admin: 08/12/18 20:51 Dose: 20 mg Ferrous Sulfate (Feosol) 325 mg PO BID [facility] Last Admin: 08/13/18 08:35 Dose: 325 mg Fish Oil (Fish Oil) 1,000 mg PO DAILY [facility] Last Admin: 08/13/18 08:35 Dose: 1,000 mg Flecainide Acetate (Tambocor) 50 mg PO BID [facility] Last Admin: 08/13/18 08:36 Dose: 50 mg Hydralazine HCl (Apresoline) 10 mg SLOW IVP Q4H PRN PRN Reason: SBP > 180 and HR < 70 Ceftriaxone Sodium 1 gm/ (Sodium Chloride) 100 mls @ 200 mls/hr IVPB Q24HR [facility] Last Admin: 08/12/18 15:45 Dose: 100 mls Lorazepam (Ativan) 0.5 mg PO BIDPRN PRN PRN Reason: Agitation Last Admin: 08/13/18 09:39 Dose: 0.5 mg Magnesium Hydroxide (Milk Of Magnesium) 30 ml PO DAILYPRN PRN PRN Reason: Constipation Magnesium Oxide (Magnesium Oxide) 400 mg PO BID [facility] Last Admin: 08/13/18 08:35 Dose: 400 mg Metoprolol Succinate (Toprol Xl) 25 mg PO DAILY [facility] Last Admin: 08/13/18 08:37 Dose: 25 mg Nitroglycerin (Nitrostat) 0.4 mg SL Q5MIN PRN PRN Reason: Chest Pain Ondansetron HCl (Zofran) 4 mg IVP Q6H PRN PRN Reason: Nausea/Vomiting Pantoprazole Sodium (Protonix) 40 mg PO DAILY [facility] Last Admin: 08/13/18 08:37 Dose: 40 mg Polyethylene Glycol (Miralax) 17 gm PO DAILY [facility] Last Admin: 08/13/18 08:36 Dose: 17 gm Senna/Docusate Sodium (Senokot S) 2 tab PO BID PRN PRN Reason: Constipation Vitamin B Complex/Vit C/Folic Acid (Nephro-Sammy Tablet) 1 tab PO DAILY [facility] Last Admin: 08/13/18 08:35 Dose: 1 tab
[2018-08-13] MEDS ORDERED: Saccharomyces boulardii 250 MG CAP PO SCH (14:15)
[2018-08-13] MEDS: cefTRIAXone\\ROCEPHIN 1 GM in Sodium Chloride 0.9% 100 ML IVPB SCH ×2 (15:02→16:35)
[2018-08-13] MEDS ORDERED: cefTRIAXone\\ROCEPHIN 1 GM VIAL ONE (16:31)
--- NOTE | 2018-08-13 17:47 | PRG ---
DATE OF SERVICE: 08/13/2018 SUBJECTIVE: Mr. Stanley is an 82-year-old white male, who is being followed up for his ESRD by the [facility]al [facility]. He underwent hemodialysis yesterday without any difficulty. We are not using any heparin due to recent bleed. He has had gross hematuria, but this is clearing with bladder lavage. He is followed up by Urology. His anticoagulation has been discontinued. No other complaints today. No chest pain or shortness of breath. He still has intermittent confusion. OBJECTIVE: VITAL SIGNS: Blood pressure 116/50, heart rate 60, respiratory rate 18, temperature 98.2, and pulse ox 98%. GENERAL: Noted to be awake, alert, comfortable, not in overt distress. SKIN: Adequate turgor. HEENT: Slightly pale conjunctivae. Anicteric sclerae. No neck mass. No carotid bruits. No JVD. CHEST: No deformities. LUNGS: Clear breath sounds. No wheezing. No crackles. HEART: Normal sinus rhythm. No murmurs, gallops, or rubs. ABDOMEN: Globular, soft nontender. No masses. EXTREMITIES: No edema. No deformities. MEDICATIONS: Medications of August 13, 2018, reviewed. LABORATORY DATA: August 13, 2018; sodium 139, potassium 3.9, chloride 100, carbon dioxide 33, BUN 34, creatinine 3.66, glucose 106, calcium 8.4. White count 6.3, hemoglobin 7.8. ASSESSMENT AND PLAN: 1. Gross hematuria, clinically improving off his Eliquis. Continuing bladder irrigation. Hemoglobin slightly lower. We are continuing to monitor this anemia. 2. End-stage renal disease, stable. We will continue current Tuesday, Tuesday, and Tuesday dialysis. We are using no heparin with dialysis due to the recent gross hematuria. 3. Anemia, on weekly Epogen. P.r.n. blood transfusion. 4. ? Of normal-pressure hydrocephalus. Previous CAT scan of the brain was done without contrast and a normal-pressure hydrocephalus cannot be excluded. An attempt to do MRI was not successful due to the fact that this patient has a pacemaker. Our plan is to repeat the CT scan with and without contrast. 5. Case discussed with the patient's daughter and as well as the patient. Job ID: [id number]
--- NOTE | 2018-08-13 19:18 | CON ---
DATE OF CONSULTATION: 08/13/2018 REASON FOR EVALUATION: Gross hematuria, currently on continuous bladder irrigation. HISTORY OF PRESENT ILLNESS: Mr. Glen Stanley is an 82-year-old white male patient of Dr. Aric Jaeger, who I am following over the weekend for Dr. Jaeger due to the development of gross hematuria. Dr. Jaeger saw and evaluated the patient on 08/11/2018, and I have previously seen the patient on 08/12/2018, please see our consultation notes. Briefly, Mr. Stanley presented with gross hematuria and probably urinary tract infection and was in fact found to have UTI. The patient had previously undergone evaluation for gross hematuria at the [facility] and here at the [facility]. The patient is a distant past patient of Dr. Mckay Rincon, who is retired from practice and did perform the patient's laser ablation of the prostate gland as well as previous treatment of bladder neck contracture. The patient has a long-standing history of autosomal dominant polycystic kidney disease and has been on hemodialysis secondary to end-stage renal disease caused by that. The patient is currently admitted to the medical floor and is on continuous bladder irrigation at a relatively low rate with clear urine. INTERVAL EVENTS: The patient did have a culture obtained on , which returned with presence of E coli, which is melgar sensitive. The patient has been appropriately treated on ceftriaxone for coverage. PHYSICAL EXAMINATION: VITAL SIGNS: The patient is afebrile with a temperature of 98.2, pulse 60, respirations 18, O2 saturation is 98% on room air, and blood pressure is 110/55. GENERAL: This patient is not sick in appearance today, nontoxic appearance. He is evaluated supine in bed. He is accompanied by his family members including his and daughter. HEAD, EYES, EARS, NOSE, AND THROAT: Extraocular movements are intact. Sclerae anicteric. Oropharynx is clear. NECK: Supple. LUNGS: Clear to auscultation bilaterally. CARDIAC: Regular. Borderline bradycardic rate. ABDOMEN: Soft and nontender. GENITOURINARY: A three-way Braxton catheter is in place and is on very low rate CBI. There are no clots in the line. Urine color is essentially clear with the CBI at this low rate. The patient may be able to undergo a trial with no irrigation. EXTREMITIES: Appear within normal limits. The patient has had previous lower extremity surgery. There is no significant edema today. LABORATORY STUDIES: Microbiology results show E coli on 08/11/2018 in the patient's urine, this was sensitive to all tested antibiotics. The Rocephin that he is on would appropriately cover that. The patient's hemoglobin is 7.8 with hematocrit of 24.4, platelet count is 130. There is moderate left shift with 78.2% neutrophils. Serum chemistry showed the patient's creatinine at 3.66, blood urea nitrogen of 34. The patient is on dialysis. A PSA test was obtained on 08/11/2018 and returned at 4.57, which could indicate prostate cancer or prostatitis. The patient's residual prostate tissue did have on his initial consultation evaluation by me a boggy characteristic to it suggestive of possible prostatitis in addition to his other history. The patient would be appropriately covered with a longer than normal course of antibiotics, a month would be considered reasonable in this setting. Cefzil, Keflex or other oral antibiotic covering gram-negative organisms would be appropriate. ASSESSMENT: Possible prostatitis. The patient should be treated with a month long course of antibiotics. I would recommend Cefzil or Omnicef for that. The patient should follow up with Dr. Aric Jaeger as an outpatient for hematuria evaluation to include cystoscopic examination and appropriate imaging study. The patient's in-hospital imaging studies of his kidneys with the CT scan would be deemed essentially appropriate for this purpose. Over 35 minutes of consultation, assessment and communication time with the patient's family members was spent today. Job ID: [id number]
[2018-08-13] MEDS: predniSONE 50 MG TAB PO SCH (20:23)
[2018-08-13] MEDS: Famotidine 20 MG TAB PO SCH (20:23)
[2018-08-14] MEDS: predniSONE 50 MG TAB PO SCH ×2 (01:40→08:30)
[2018-08-14 06:24] LABS: #Lymphocytes 0.4 thou/uL (1.20-3.40); #Monocytes 0.1 thou/uL (0.11-0.59); #Neutrophils 2.7 thou/uL (1.40-6.50); %Eosinophils 0.3 % (0.0-10.0); %Lymphocytes 13.6 % (21.0-51.0); %Monocytes 2.9 % (0.0-10.0); %Neutrophils 83.2 % (42.0-75.0); Hemoglobin 7.5 g/dL (14.0-18.0); Mean Corpuscular HGB CONC 31.4 g/dL (32.0-36.0); Mean Corpuscular Hemoglobin 28.8 pg (27.0-31.0); Mean Corpuscular Volume 91.8 fL (78.0-98.0); Mean Platelet Volume 7.2 fL (7.4-10.4); Platelet Count 140 thou/uL (130-400); RBC Distribution Width 16.8 % (11.5-14.5); White Blood Cell (WBC) Count 3.2 thou/uL (4.8-10.8)
[2018-08-14 06:37] LABS: Anion Gap 12 mmol/L (10-20); BUN (Urea Nitrogen) 47 mg/dL (8.4-25.7); Calc. Creatinine Clearance 13 mL/min (70-130); Calcium 8.6 mg/dL (7.8-10.44); Carbon Dioxide 29 mmol/L (23-31); Chloride 98 mmol/L (98-107); Estimated GFR-MDRD 13; Glucose 158 mg/dL (83-110); Potassium 4.5 mmol/L (3.5-5.1); Sodium 134 mmol/L (136-145)
[2018-08-14] MEDS ORDERED: diphenhydrAMINE 50 MG CAP PO SCH (08:00)
[2018-08-14] MEDS: Digoxin 0.125 MG TAB PO SCH (08:28)
[2018-08-14] MEDS: Saccharomyces boulardii 250 MG CAP PO SCH (08:29)
[2018-08-14] MEDS: Fish Oil 1,000 MG CAP PO SCH (08:29)
[2018-08-14] MEDS: Ferrous Sulfate 325 MG TAB PO SCH ×2 (08:30→19:54)
[2018-08-14] MEDS: Magnesium Oxide 400 MG TAB PO SCH ×2 (08:30→19:55)
[2018-08-14] MEDS: Folic Acid/Vit B Comp W-C PO SCH (08:30)
[2018-08-14] MEDS: DULoxetine 30 MG CAP PO SCH (08:30)
[2018-08-14] MEDS: Diltiazem HCl SR 60 mg Capsule PO SCH ×2 (08:31→19:54)
[2018-08-14] MEDS: Flecainide 50 MG TAB PO SCH ×2 (08:32→19:55)
--- NOTE | 2018-08-14 09:47 | PRG ---
DATE OF SERVICE: 08/14/2018 SUBJECTIVE: Mr. Stanley is an 82-year-old white male, who was admitted for gross hematuria. His anticoagulation will be discontinued. He still has persistent gross hematuria. Urology is following. We are following up this patient for his maintenance hemodialysis. I have scheduled him for his dialysis this afternoon. We are using no heparin. Also due to the possibility of normal-pressure hydrocephalus on a CAT scan without contrast, I have decided to repeat the CT scan with and without contrast. Please note, he could not do MRI because of his pacemaker. No other complaints today. No chest pain. No shortness of breath. OBJECTIVE: VITAL SIGNS: Blood pressure 143/63, heart rate 93, respiratory rate 18, temperature 97.9, and pulse ox 94%. GENERAL: Awake, alert, comfortable, not in distress. SKIN: Adequate turgor. HEENT: Slightly pale conjunctivae. Anicteric sclerae. NECK: No neck mass. No carotid bruits. No JVD. CHEST: No deformities. LUNGS: Clear breath sounds. No wheezing. No crackles. HEART: Normal sinus rhythm. No murmur. No gallops. No rubs. ABDOMEN: Globular, soft, nontender. No masses. EXTREMITIES: No edema. MEDICATIONS: Medications of August 14, 2018, reviewed. LABORATORY DATA: Laboratories Of August 14, 2018; white count 3.2, hemoglobin 7.5. Sodium 134, potassium 4.5, chloride 98, carbon dioxide 29, BUN 47, creatinine 4.27, glucose 158, and calcium 8.6. ASSESSMENT AND PLAN: 1. Gross hematuria - Urology following, currently on a bladder wash. 2. Anemia - p.r.n. blood transfusion due to the persistent gross hematuria in worsening hemoglobin. We will transfuse 1 unit of packed RBC with dialysis. Continue weekly Epogen. 3. End-stage renal disease, stable, continuing heparin-free hemodialysis. The patient is scheduled for dialysis this afternoon. 4. ? of normal-pressure hydrocephalus - repeat CT scan with and without contrast. He is allergic to iodine. For that reason, he received the protocol of prednisone. Recheck basic metabolic panel and CBC in a.m. Job ID: [id number]
--- NOTE | 2018-08-14 10:10 | CT ---
FCT Brain W WO Con: 08/14/2018 9:00 AM CLINICAL HISTORY: History of hydrocephalus with confusion, tremors. COMPARISON: 08/03/2018 FINDINGS: Hemorrhage: None. Ventricular system: Stable enlargement. Cerebral parenchyma: Moderate white matter hypoattenuation is redemonstrated. Midline shift: None. Calvarium: Normal. Visualized Paranasal sinuses: Clear. Postcontrast imaging does not reveal pathologic intra-axial enhancement. IMPRESSION: Persistent ventriculomegaly. Correlate clinically to exclude evidence of normal pressure hydrocephalu s. White matter hypoattenuation, moderate in degree is redemonstrated which may relate to component of m icrovascular ischemic disease and/or transependymal CSF migration .
--- NOTE | 2018-08-14 10:19 | CT ---
FCT Abdomen Pelvis W WO con History: [Hematuria] Comparison: CT angiogram of the abdomen March 2018 Findings: New small bilateral pleural effusions. Heart size enlarged. No significant pericardial flui d. There is a small cyst within hepatic segment 4A, subcentimeter. Small cyst in hepatic segment 5. There continues to be a endoleak with the aortic aneurysm not significantly increased in size. Similar appearance of the polycystic kidneys. No definite solid enhancing renal mass. There appears t o be a large posterior bladder diverticulum which appears inflamed with a fluid hematocrit level. The re is abnormal enhancement around this diverticulum. Urinary bladder is otherwise decompressed with a Braxton catheter. Moderate stool burden of the rectum. No dilated loops of large or small bowel. On the delayed phase of contrast there is no significant contrast within the renal collecting systems , ureter, nor urinary bladder. Urinary bladder wall is thickened. No acute osseous abnormality. Impression: 1. Inflamed posterior urinary bladder diverticulum containing a fluid hematocrit level and small volu me gas with peripheral hyperenhancement suggesting an infected bladder diverticulum. Direct visualiza tion recommended. The urinary bladder wall is also thickened suggesting cystitis. 2. Polycystic kidney disease. 3. No significant contrast within the ureters nor urinary bladder on the delayed phase of contrast. 4. Similar size of the aortic aneurysm with type IIIA endoleak.
--- NOTE | 2018-08-14 13:16 | PDOC.PN ---
- Subjective Encounter Start Date: 08/14/18 Encounter Start Time: 13:15 (late entry) Subjective: remains stable but weak and tired - Objective Resuscitation Status - Order Detail: 08/11/18 16:58 Resuscitation Status Routine Resuscitation Status: FULL: Full Resuscitation Discussed with: discussed w pt CARSON Reviewed: Yes Vital Signs & Weight: Vital Signs (12 hours) Temp Pulse Resp BP Pulse Ox 08/14/18 08:28 93 08/14/18 08:00 94 L 08/14/18 07:36 97.9 F 93 18 143/63 H 94 L 08/14/18 04:00 98.3 F 61 18 133/61 97 Weight Admit Weight 152 lb 8 oz Weight 152 lb 8 oz I&O: 08/13/18 08/14/18 08/15/18 06:59 06:59 06:59 Intake Total 3000 480 480 Output Total 8500 1150 Balance -5500 -670 480 Result Diagrams: 08/14/18 05:50 08/14/18 05:50 Additional Labs: Microbiology 08/11/18 10:49 Urine lubin catheter Urine Culture - Final Escherichia coli Laboratory Tests 08/11/18 08/12/18 08/13/18 11:29 05:28 06:07 Hgb 9.3 L 8.2 L 7.8 L Plt Count 128 L 113 L 130 08/14/18 05:50 Hgb 7.5 L Plt Count 140 Phys Exam - Physical Examination Constitutional: NAD HEENT: PERRLA, moist MMs, sclera anicteric, oral pharynx no lesions Neck: no nodes, no JVD, supple, full ROM Respiratory: no wheezing, no rales, no rhonchi, clear to auscultation bilateral Cardiovascular: RRR, no significant murmur, no rub Gastrointestinal: soft, non-tender, no distention, positive bowel sounds Lubin w clearer urine Musculoskeletal: no edema, pulses present Neurological: non-focal, normal sensation, moves all 4 limbs Psychiatric: normal affect, A&O x 3 Deviation from normal: sleepy Skin: no rash Dx/Plan (1) Hematuria Code(s): R31.9 - HEMATURIA, UNSPECIFIED Status: Acute Comment: on CBI.CT shows Bladder diverticululm which may be infected (2) UTI (urinary tract infection) Status: Acute Comment: E.Coli >100,000 (3) Acute on chronic blood loss anemia Code(s): D62 - ACUTE POSTHEMORRHAGIC ANEMIA Status: Acute Comment: ON EPOGEN (4) ESRD (end stage renal disease) on dialysis Code(s): N18.6 - END STAGE RENAL DISEASE; Z99.2 - DEPENDENCE ON RENAL DIALYSIS Status: Chronic (5) Paroxysmal atrial fibrillation Code(s): I48.0 - PAROXYSMAL ATRIAL FIBRILLATION Status: Chronic (6) HTN (hypertension) Code(s): I10 - ESSENTIAL (PRIMARY) HYPERTENSION Status: Chronic (7) HLD (hyperlipidemia) Code(s): E78.5 - HYPERLIPIDEMIA, UNSPECIFIED Status: Chronic - Plan continue antibiotics, PT/OT, out of bed/ambulate, DVT proph w/SCDs will give 1 unit PRBC w HD today -: CBI and cont IV ABx for possible prostatitis & /cystitis -: Further per Urology recs.Monitor H/H -: Hemodialysis w renal Fx panel daily -: OT/PT.rehab eval * . Review of Systems - Review of Systems Constitutional: weakness, malaise. negative: fever, chills, sweats, other Respiratory: negative: Cough, Dry, Shortness of Breath, Hemoptysis, SOB with Excertion, Pleuritic Pain, Sputum, Wheezing Cardiovascular: negative: chest pain, palpitations, orthopnea, paroxysmal nocturnal dyspnea, edema, light headedness, other Gastrointestinal: negative: Nausea, Vomiting, Abdominal Pain, Diarrhea, Constipation, Melena, Hematochezia, Other Genitourinary: Hematuria. negative: Dysuria, Frequency, Incontinence, Retention , Other Musculoskeletal: negative: Neck Pain, Shoulder Pain, Arm Pain, Back Pain, Hand Pain, Leg Pain, Foot Pain, Other Neurological: negative: Weakness, Numbness, Incoordination, Change in Speech, Confusion, Seizures, Other - Medications/Allergies Allergies/Adverse Reactions: Allergies Allergy/AdvReac Type Severity Reaction Status Date / Time Antihistamines - Alkylamine Allergy Mild Verified 08/11/18 16:15 caffeine Allergy Verified 08/11/18 16:15 codeine Allergy Verified 08/11/18 16:15 iodine Allergy Verified 08/11/18 16:15 Novacaine Allergy Uncoded 08/11/18 16:15 Medications: Current Medications Acetaminophen (Tylenol) 650 mg PO Q4H PRN PRN Reason: Headache/Fever/Mild Pain (1-3) Last Admin: 08/13/18 11:19 Dose: 650 mg Benzonatate (Tessalon) 100 mg PO Q6H PRN PRN Reason: Cough Bisacodyl (Dulcolax) 10 mg PO DAILYPRN PRN PRN Reason: Constipation Clonidine (Catapres) 0.1 mg PO Q4H PRN PRN Reason: SBP >160 ____ Digoxin (Lanoxin) 0.125 mg PO DAILY [facility] Last Admin: 08/14/18 08:28 Dose: 0.125 mg Diltiazem HCl (Cardizem Sr) 180 mg PO BID [facility] Last Admin: 08/14/18 08:31 Dose: 180 mg Duloxetine HCl (Cymbalta) 30 mg PO DAILY [facility] Last Admin: 08/14/18 08:30 Dose: 30 mg Epoetin Balaji (Procrit) 7,500 units SC Q7D [facility] Last Admin: 08/12/18 14:14 Dose: 7,500 units Famotidine (Pepcid) 20 mg PO QPM [facility] Last Admin: 08/13/18 20:23 Dose: 20 mg Ferrous Sulfate (Feosol) 325 mg PO BID [facility] Last Admin: 08/14/18 08:30 Dose: 325 mg Fish Oil (Fish Oil) 1,000 mg PO DAILY [facility] Last Admin: 08/14/18 08:29 Dose: 1,000 mg Flecainide Acetate (Tambocor) 50 mg PO BID [facility] Last Admin: 08/14/18 08:32 Dose: 50 mg Hydralazine HCl (Apresoline) 10 mg SLOW IVP Q4H PRN PRN Reason: SBP > 180 and HR < 70 Ceftriaxone Sodium 1 gm/ (Sodium Chloride) 100 mls @ 200 mls/hr IVPB Q24HR [facility] Last Admin: 08/13/18 16:35 Dose: 100 mls Lorazepam (Ativan) 0.5 mg PO BIDPRN PRN PRN Reason: Agitation Last Admin: 08/13/18 20:23 Dose: 0.5 mg Magnesium Oxide (Magnesium Oxide) 400 mg PO BID [facility] Last Admin: 08/14/18 08:30 Dose: 400 mg Metoprolol Succinate (Toprol Xl) 25 mg PO DAILY [facility] Last Admin: 08/14/18 08:30 Dose: 25 mg Nitroglycerin (Nitrostat) 0.4 mg SL Q5MIN PRN PRN Reason: Chest Pain Ondansetron HCl (Zofran) 4 mg IVP Q6H PRN PRN Reason: Nausea/Vomiting Pantoprazole Sodium (Protonix) 40 mg PO DAILY [facility] Last Admin: 08/14/18 08:30 Dose: 40 mg Saccharomyces Boulardii (Florastor) 250 mg PO DAILY [facility] Last Admin: 08/14/18 08:29 Dose: 250 mg Senna/Docusate Sodium (Senokot S) 2 tab PO BID PRN PRN Reason: Constipation Vitamin B Complex/Vit C/Folic Acid (Nephro-Sammy Tablet) 1 tab PO DAILY [facility] Last Admin: 08/14/18 08:30 Dose: 1 tab
[2018-08-14] MEDS: cefTRIAXone\\ROCEPHIN 1 GM in Sodium Chloride 0.9% 100 ML IVPB SCH (17:35)
[2018-08-14] MEDS: Lorazepam 0.5 MG TAB PO PRN (19:39)
[2018-08-14] MEDS: Famotidine 20 MG TAB PO SCH (19:54)
[2018-08-14] MEDS ORDERED: Ziprasidone 20 MG VIAL IM PRN (21:01)
[2018-08-14] MEDS ORDERED: Ziprasidone 20 MG VIAL IM SCH (21:04)
[2018-08-14] MEDS ORDERED: Sterile Water 10 ML VIAL FS SCH (21:15)
[2018-08-15 05:46] LABS: #Lymphocytes 0.8 thou/uL (1.20-3.40); #Monocytes 0.5 thou/uL (0.11-0.59); #Neutrophils 4.6 thou/uL (1.40-6.50); %Basophils 0.1 % (0.0-1.0); %Eosinophils 0.1 % (0.0-10.0); %Lymphocytes 13.2 % (21.0-51.0); %Monocytes 7.8 % (0.0-10.0); %Neutrophils 78.8 % (42.0-75.0); Hemoglobin 9.1 g/dL (14.0-18.0); Mean Corpuscular HGB CONC 32.3 g/dL (32.0-36.0); Mean Corpuscular Hemoglobin 29.2 pg (27.0-31.0); Mean Corpuscular Volume 90.3 fL (78.0-98.0); Mean Platelet Volume 6.7 fL (7.4-10.4); Platelet Count 148 thou/uL (130-400); RBC Distribution Width 16.6 % (11.5-14.5); Red Blood Cell (RBC) Count 3.13 mill/uL (4.70-6.10); White Blood Cell (WBC) Count 5.9 thou/uL (4.8-10.8)
[2018-08-15 06:04] LABS: Anion Gap 10 mmol/L (10-20); BUN (Urea Nitrogen) 26 mg/dL (8.4-25.7); Calc. Creatinine Clearance 20 mL/min (70-130); Calcium 8.9 mg/dL (7.8-10.44); Carbon Dioxide 32 mmol/L (23-31); Chloride 101 mmol/L (98-107); Estimated GFR-MDRD 22; Glucose 121 mg/dL (83-110); Potassium 4.6 mmol/L (3.5-5.1); Sodium 138 mmol/L (136-145)
--- NOTE | 2018-08-15 09:49 | PRG ---
DATE OF SERVICE: 08/15/2018 SUBJECTIVE: Mr. Stanley is an 82-year-old white male with history of ESRD and being followed by the [facility] for his maintenance hemodialysis. He was initially admitted for gross hematuria. A repeat CT scan of the abdomen and pelvis showed an inflamed posterior urinary bladder diverticulum containing a fluid hematocrit level, small volume of gas. Recommendation is of a direct visualization. Urology is currently following up this patient. There was also an issue regarding the patient's ? of dementia. A repeat CT scan of the brain was done with and without contrast. Persistent ventriculomegaly was noted. Recommendation is to clinically correlate whether the patient has normal-pressure hydrocephalus. No other complaints. No chest pain or shortness of breath. Please note, the patient received 1 unit packed RBC yesterday. OBJECTIVE: VITAL SIGNS: Blood pressure 144/68, heart rate 61, respiratory rate 20, temperature 97.8, and pulse ox 93%. GENERAL: Noted to be awake, comfortable, not in overt distress. SKIN: Adequate turgor. HEENT: He has a slightly pale conjunctivae. Anicteric sclerae. NECK: No neck mass. No carotid bruits. No JVD. CHEST: No deformities. LUNGS: Clear breath sounds. HEART: Normal sinus rhythm. No murmurs. No gallops. No rubs. ABDOMEN: Globular, soft, and nontender. No masses. EXTREMITIES: No edema. No deformities. MEDICATIONS: Medications of August 15, 2018, reviewed. LABORATORY DATA: Labs of August 15, 2018; hemoglobin 9.1. Sodium 138, potassium 4.6, chloride 101, carbon dioxide 32, BUN 26, creatinine of 2.8, glucose 121, and calcium 8.9. ASSESSMENT AND PLAN: 1. Gross hematuria, slowly improving. Currently, on bladder wash lavage. Urology is following. ? of eventual cystoscopy. 2. End-stage renal disease, stable, tolerating current hemodialysis. Due to the gross hematuria, no heparin is being used. 3. Chronic anemia. Continuing weekly Epogen. Job ID: [id number]
[2018-08-15] MEDS: DULoxetine 30 MG CAP PO SCH (10:23)
[2018-08-15] MEDS: Lorazepam 0.5 MG TAB PO PRN ×2 (10:23→19:36)
[2018-08-15] MEDS: Magnesium Oxide 400 MG TAB PO SCH ×2 (10:23→23:06)
[2018-08-15] MEDS: Ferrous Sulfate 325 MG TAB PO SCH ×2 (10:24→23:06)
[2018-08-15] MEDS: Flecainide 50 MG TAB PO SCH ×2 (10:24→23:06)
[2018-08-15] MEDS: Digoxin 0.125 MG TAB PO SCH (10:24)
[2018-08-15] MEDS: Saccharomyces boulardii 250 MG CAP PO SCH (10:25)
[2018-08-15] MEDS: Fish Oil 1,000 MG CAP PO SCH (10:25)
[2018-08-15] MEDS: Diltiazem HCl SR 60 mg Capsule PO SCH ×2 (10:25→23:06)
[2018-08-15] MEDS: Folic Acid/Vit B Comp W-C PO SCH (10:26)
[2018-08-15] MEDS: cefTRIAXone\\ROCEPHIN 1 GM in Sodium Chloride 0.9% 100 ML IVPB SCH (15:07)
--- NOTE | 2018-08-15 17:16 | PDOC.PN ---
- Subjective Encounter Start Date: 08/15/18 Encounter Start Time: 17:15 Subjective: feels better but RN reports confusion and restlessnes - Objective Resuscitation Status - Order Detail: 08/11/18 16:58 Resuscitation Status Routine Resuscitation Status: FULL: Full Resuscitation Discussed with: discussed w pt MAR Reviewed: Yes Vital Signs & Weight: Vital Signs (12 hours) Temp Pulse Resp BP Pulse Ox 08/15/18 10:24 65 08/15/18 08:00 93 L 08/15/18 07:39 97.8 F 61 20 144/68 H 93 L Weight Admit Weight 152 lb 8 oz Weight 152 lb 8 oz I&O: 08/14/18 08/15/18 08/16/18 06:59 06:59 06:59 Intake Total 480 1870 320 Output Total 1150 725 Balance -670 1145 320 Result Diagrams: 08/15/18 05:33 08/15/18 05:33 Additional Labs: Microbiology 08/11/18 10:49 Urine lubin catheter Urine Culture - Final Escherichia coli Phys Exam - Physical Examination Constitutional: NAD looks better but still appears very weak Dx/Plan (1) Hematuria Code(s): R31.9 - HEMATURIA, UNSPECIFIED Status: Acute Comment: on CBI.CT shows Bladder diverticululm which may be infected (2) UTI (urinary tract infection) Status: Acute Comment: E.Coli >100,000 (3) Acute on chronic blood loss anemia Code(s): D62 - ACUTE POSTHEMORRHAGIC ANEMIA Status: Acute Comment: ON EPOGEN (4) ESRD (end stage renal disease) on dialysis Code(s): N18.6 - END STAGE RENAL DISEASE; Z99.2 - DEPENDENCE ON RENAL DIALYSIS Status: Chronic (5) Paroxysmal atrial fibrillation Code(s): I48.0 - PAROXYSMAL ATRIAL FIBRILLATION Status: Chronic (6) HTN (hypertension) Code(s): I10 - ESSENTIAL (PRIMARY) HYPERTENSION Status: Chronic (7) HLD (hyperlipidemia) Code(s): E78.5 - HYPERLIPIDEMIA, UNSPECIFIED Status: Chronic - Plan * . Review of Systems - Review of Systems Constitutional: weakness ENT: negative: Ear Pain, Ear Discharge, Nose Pain, Nose Discharge, Nose Congestion, Mouth Pain, Mouth Swelling, Throat Pain, Throat Swelling, Other Respiratory: negative: Cough, Dry, Shortness of Breath, Hemoptysis, SOB with Excertion, Pleuritic Pain, Sputum, Wheezing Cardiovascular: negative: chest pain, palpitations, orthopnea, paroxysmal nocturnal dyspnea, edema, light headedness, other Gastrointestinal: negative: Nausea, Vomiting, Abdominal Pain, Diarrhea, Constipation, Melena, Hematochezia, Other Genitourinary: negative: Dysuria, Frequency, Incontinence, Hematuria, Retention , Other Musculoskeletal: negative: Neck Pain, Shoulder Pain, Arm Pain, Back Pain, Hand Pain, Leg Pain, Foot Pain, Other Neurological: negative: Weakness, Numbness, Incoordination, Change in Speech, Confusion, Seizures, Other - Medications/Allergies Allergies/Adverse Reactions: Allergies Allergy/AdvReac Type Severity Reaction Status Date / Time Antihistamines - Alkylamine Allergy Mild Verified 08/11/18 16:15 caffeine Allergy Verified 08/11/18 16:15 codeine Allergy Verified 08/11/18 16:15 iodine Allergy Verified 08/11/18 16:15 Novacaine Allergy Uncoded 08/11/18 16:15 Medications: Current Medications Acetaminophen (Tylenol) 650 mg PO Q4H PRN PRN Reason: Headache/Fever/Mild Pain (1-3) Last Admin: 08/13/18 11:19 Dose: 650 mg Benzonatate (Tessalon) 100 mg PO Q6H PRN PRN Reason: Cough Bisacodyl (Dulcolax) 10 mg PO DAILYPRN PRN PRN Reason: Constipation Clonidine (Catapres) 0.1 mg PO Q4H PRN PRN Reason: SBP >160 ____ Digoxin (Lanoxin) 0.125 mg PO DAILY [facility] Last Admin: 08/15/18 10:24 Dose: 0.125 mg Diltiazem HCl (Cardizem Sr) 180 mg PO BID [facility] Last Admin: 08/15/18 10:25 Dose: 180 mg Duloxetine HCl (Cymbalta) 30 mg PO DAILY [facility] Last Admin: 08/15/18 10:23 Dose: 30 mg Epoetin Balaji (Procrit) 7,500 units SC Q7D [facility] Last Admin: 08/12/18 14:14 Dose: 7,500 units Famotidine (Pepcid) 20 mg PO QPM [facility] Last Admin: 08/14/18 19:54 Dose: 20 mg Ferrous Sulfate (Feosol) 325 mg PO BID [facility] Last Admin: 08/15/18 10:24 Dose: 325 mg Fish Oil (Fish Oil) 1,000 mg PO DAILY [facility] Last Admin: 08/15/18 10:25 Dose: 1,000 mg Flecainide Acetate (Tambocor) 50 mg PO BID [facility] Last Admin: 08/15/18 10:24 Dose: 50 mg Hydralazine HCl (Apresoline) 10 mg SLOW IVP Q4H PRN PRN Reason: SBP > 180 and HR < 70 Ceftriaxone Sodium 1 gm/ (Sodium Chloride) 100 mls @ 200 mls/hr IVPB Q24HR [facility] Last Admin: 08/15/18 15:07 Dose: 100 mls Lorazepam (Ativan) 0.5 mg PO BIDPRN PRN PRN Reason: Agitation Last Admin: 08/15/18 10:23 Dose: 0.5 mg Magnesium Oxide (Magnesium Oxide) 400 mg PO BID [facility] Last Admin: 08/15/18 10:23 Dose: 400 mg Metoprolol Succinate (Toprol Xl) 25 mg PO DAILY [facility] Last Admin: 08/15/18 10:25 Dose: 25 mg Nitroglycerin (Nitrostat) 0.4 mg SL Q5MIN PRN PRN Reason: Chest Pain Ondansetron HCl (Zofran) 4 mg IVP Q6H PRN PRN Reason: Nausea/Vomiting Pantoprazole Sodium (Protonix) 40 mg PO DAILY [facility] Last Admin: 08/15/18 10:23 Dose: 40 mg Saccharomyces Boulardii (Florastor) 250 mg PO DAILY [facility] Last Admin: 08/15/18 10:25 Dose: 250 mg Senna/Docusate Sodium (Senokot S) 2 tab PO BID PRN PRN Reason: Constipation Vitamin B Complex/Vit C/Folic Acid (Nephro-Sammy Tablet) 1 tab PO DAILY [facility] Last Admin: 08/15/18 10:26 Dose: 1 tab
[2018-08-15] MEDS ORDERED: Ziprasidone 20 MG VIAL IM PRN (20:09)
[2018-08-15] MEDS ORDERED: Ziprasidone 20 MG VIAL IM SCH (21:00)
[2018-08-15] MEDS: Famotidine 20 MG TAB PO SCH (23:06)
[2018-08-16 07:15] LABS: Hemoglobin 11.2 g/dL (14.0-18.0); Mean Corpuscular HGB CONC 31.6 g/dL (32.0-36.0); Mean Corpuscular Hemoglobin 28.8 pg (27.0-31.0); Mean Corpuscular Volume 91.1 fL (78.0-98.0); Mean Platelet Volume 7.1 fL (7.4-10.4); Platelet Count 155 thou/uL (130-400); RBC Distribution Width 16.9 % (11.5-14.5); White Blood Cell (WBC) Count 4.5 thou/uL (4.8-10.8)
[2018-08-16 07:18] LABS: Anion Gap 13 mmol/L (10-20); BUN (Urea Nitrogen) 39 mg/dL (8.4-25.7); Calc. Creatinine Clearance 16 mL/min (70-130); Carbon Dioxide 28 mmol/L (23-31); Chloride 100 mmol/L (98-107); Estimated GFR-MDRD 17; Glucose 71 mg/dL (83-110); Sodium 137 mmol/L (136-145)
[2018-08-16 08:19] LABS: Band 4 % (5-11); Eosinophils 1 % (0-10); Hypochromia SLIGHT = 6-15 cells (100X) (0-5/hpf); Lymphocytes 16 % (21-51); MDiff Complete? YES; Monocytes 4 % (0-10); Neutrophil 75 % (42-75); Platelet Morphology Comment Appears Adequate; Polychromasia SLIGHT = 2-3 cells (100X) (0-2/hpf)
[2018-08-16] MEDS: Diltiazem HCl SR 60 mg Capsule PO SCH ×2 (09:05→21:01)
[2018-08-16] MEDS: Digoxin 0.125 MG TAB PO SCH (09:05)
--- NOTE | 2018-08-16 09:56 | PRG ---
DATE OF SERVICE: 08/16/2018 SUBJECTIVE: Mr. Stanley is an 82-year-old white male who was admitted for gross hematuria. We are following him up for his maintenance hemodialysis. He is tolerating dialysis. We are using no heparin. The patient is scheduled this morning for a cystoscopy. No other complaints. Still confused. He does have ? of normal-pressure hydrocephalus. Neurology may need to evaluate this patient. No other complaints. OBJECTIVE: VITAL SIGNS: Blood pressure is 159/65, heart rate 67, respiratory rate 18, temperature 97.5, and pulse ox is 99%. GENERAL: Awake, alert, comfortable, not in distress. SKIN: Adequate turgor. HEENT: He has a pinkish conjunctivae. Anicteric sclerae. No neck mass. No carotid bruits. No JVD. CHEST: No deformities. LUNGS: Clear breath sounds. No wheezing. No crackles. HEART: Normal sinus rhythm. No murmur. No gallops. No rubs. ABDOMEN: Globular, soft, nontender. No masses. EXTREMITIES: No edema. MEDICATIONS: Of August 16, 2018, were reviewed. LABORATORY DATA: Of August 16, 2018; white count 4.5 and hemoglobin 11.2. Sodium 137, potassium 4, chloride 100, carbon dioxide 28, BUN 39, creatinine 3.45, glucose 71, and calcium 9.0. ASSESSMENT AND PLAN: 1. End-stage renal disease, stable. We will continue heparin free hemodialysis today. Fluid removal only as tolerated. 2. Intermittent confusion - consider a Neurology consult. 3. Gross hematuria - the patient has a planned cystoscopy with Dr. Jaeger. 4. Anemia, much improved. Continuing weekly Epogen. Status post blood transfusion. Overall, agree with current management. Job ID: [id number]
[2018-08-16] MEDS ORDERED: Fentanyl 100 MCG/2 ML VIAL ONE (10:54)
[2018-08-16] MEDS ORDERED: Midazolam HCl 2 mg/2 ml Vial ONE (10:54)
[2018-08-16] MEDS ORDERED: PROPOFOL 200 MG/20 ML VIAL ONE (15:53)
[2018-08-16] MEDS ORDERED: Ondansetron PF 4 MG/2 ML Vial ONE (15:53)
[2018-08-16] MEDS ORDERED: Lidocaine 1% PF 5 ML VIAL ONE (15:53)
--- NOTE | 2018-08-16 17:32 | PDOC.PN ---
- Subjective Encounter Start Date: 08/16/18 Encounter Start Time: 17:25 Subjective: f/u for gross hematuria with cystoscopy today. Also receiving HD per -: Renal service. - Objective Resuscitation Status - Order Detail: 08/11/18 16:58 Resuscitation Status Routine Resuscitation Status: FULL: Full Resuscitation Discussed with: discussed w pt CARSON Reviewed: Yes Vital Signs & Weight: Vital Signs (12 hours) Temp Pulse Resp BP Pulse Ox 08/16/18 09:05 67 08/16/18 08:00 97.5 F L 67 18 159/65 H 99 Weight Admit Weight 152 lb 8 oz Weight 152 lb 8 oz I&O: 08/15/18 08/16/18 08/17/18 06:59 06:59 06:59 Intake Total 1870 940 50 Output Total 725 200 475 Balance 1145 740 -425 Result Diagrams: 08/16/18 06:44 08/16/18 06:44 Additional Labs: Microbiology 08/11/18 10:49 Urine lubin catheter Urine Culture - Final Escherichia coli Laboratory Tests 08/11/18 08/12/18 08/13/18 17:04 05:28 06:07 Hgb 8.2 L Creatinine 3.66 H Hep Bs Antigen Non-Reactive 08/13/18 08/14/18 08/14/18 06:07 05:50 05:50 Hgb 7.8 L 7.5 L Creatinine 4.27 H Hep Bs Antigen 08/15/18 08/15/18 05:33 05:33 Hgb 9.1 L Creatinine 2.80 H Hep Bs Antigen Phys Exam - Physical Examination Constitutional: NAD HEENT: PERRLA, sclera anicteric, oral pharynx no lesions Neck: no nodes, no JVD, supple, full ROM Respiratory: no wheezing, no rales, no rhonchi, clear to auscultation bilateral S1, S2 Cardiovascular: RRR, no significant murmur, no rub, gallop Gastrointestinal: soft, non-tender, no distention, positive bowel sounds Musculoskeletal: no edema, pulses present Neurological: normal sensation, moves all 4 limbs Psychiatric: A&O x 3 Skin: normal turgor, cap refill <2 seconds Dx/Plan (1) Acute on chronic blood loss anemia Code(s): D62 - ACUTE POSTHEMORRHAGIC ANEMIA Status: Acute Comment: On Epogen , s/p 1u PRBC's, hold all anticoagulation (2) Hematuria Code(s): R31.9 - HEMATURIA, UNSPECIFIED Status: Acute Comment: CBI, cystoscopy today, hold all anticoagulation (3) UTI (urinary tract infection) Status: Acute Comment: E.Coli >100,000, Rocephin daily (4) ESRD (end stage renal disease) on dialysis Code(s): N18.6 - END STAGE RENAL DISEASE; Z99.2 - DEPENDENCE ON RENAL DIALYSIS Status: Chronic Comment: HD per Renal service (5) HTN (hypertension) Code(s): I10 - ESSENTIAL (PRIMARY) HYPERTENSION Status: Chronic Qualifiers: Hypertension type: essential hypertension Qualified Code(s): I10 - Essential (primary) hypertension Comment: Labile, resume home BP regimen, serial monitoring - Plan continue antibiotics, 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
[2018-08-16] MEDS: cefTRIAXone\\ROCEPHIN 1 GM in Sodium Chloride 0.9% 100 ML IVPB SCH (18:24)
[2018-08-16] MEDS: Ferrous Sulfate 325 MG TAB PO SCH ×2 (18:36→20:00)
[2018-08-16] MEDS: DULoxetine 30 MG CAP PO SCH (18:36)
[2018-08-16] MEDS: Saccharomyces boulardii 250 MG CAP PO SCH (18:37)
[2018-08-16] MEDS: Fish Oil 1,000 MG CAP PO SCH (18:37)
[2018-08-16] MEDS: Folic Acid/Vit B Comp W-C PO SCH (18:37)
[2018-08-16] MEDS: Flecainide 50 MG TAB PO SCH ×2 (18:37→20:00)
[2018-08-16] MEDS: Magnesium Oxide 400 MG TAB PO SCH ×2 (18:37→20:00)
[2018-08-16] MEDS: Lorazepam 0.5 MG TAB PO PRN (19:59)
[2018-08-16] MEDS: Famotidine 20 MG TAB PO SCH (20:00)
[2018-08-17 06:57] LABS: Anion Gap 9 mmol/L (10-20); BUN (Urea Nitrogen) 24 mg/dL (8.4-25.7); Calc. Creatinine Clearance 21 mL/min (70-130); Calcium 8.5 mg/dL (7.8-10.44); Carbon Dioxide 34 mmol/L (23-31); Chloride 100 mmol/L (98-107); Estimated GFR-MDRD 23; Glucose 82 mg/dL (83-110); Potassium 4.2 mmol/L (3.5-5.1); Sodium 139 mmol/L (136-145)
--- NOTE | 2018-08-17 09:45 | PRG ---
DATE OF SERVICE: 08/17/2018 SUBJECTIVE: Mr. Stanley is an 82-year-old white male being followed up for his ESRD - maintenance hemodialysis. He is currently undergoing Tuesday, Tuesday, and Tuesday dialysis without any heparin due to recent gross hematuria. He is tolerating said treatment. This morning, I found him to be a bit more lethargic. A CT scan of the brain has been done a few days ago and ? of normal-pressure hydrocephalus. Neurology consult has been done. OBJECTIVE: VITAL SIGNS: Blood pressure is 148/54, heart rate 67, respiratory rate 18, temperature 98.3, and pulse ox 95%. GENERAL: He is noted to be awake, but looks lethargic, can answer my questions and can follow simple commands. HEENT: Pinkish conjunctivae. Anicteric sclerae. NECK: No neck mass. No carotid bruits. No JVD. CHEST: No deformities. LUNGS: Clear breath sounds. HEART: Normal sinus rhythm. No murmur. No gallops. No rubs. ABDOMEN: Globular, soft, and nontender. No masses. EXTREMITIES: No edema. No deformities. MEDICATIONS: Medications of August 17, 2018, reviewed. LABORATORY DATA: Laboratories of August 16, 2018, white count 4.5 and hemoglobin 11.2. On August 17, 2018; sodium 139, potassium 4.2, chloride 100, carbon dioxide 34, BUN 24, creatinine 2.66, glucose 82, and calcium 8.5. ASSESSMENT AND PLAN: 1. End-stage renal disease, stable. We will continue current hemodialysis regimen. Tolerating said treatment using no heparin due to the gross hematuria. Fluid removal only as tolerated. 2. Gross hematuria - status post cystoscopy. Awaiting final report by Dr. Jaeger. 3. Anemia, much improved. We will hold off Epogen temporarily. 4. Lethargy - this could be secondary to the side effects of the Geodon he has been receiving. He has been agitated at night in the last few nights. 5. Continue supportive care. Job ID: [id number]
[2018-08-17] MEDS: Digoxin 0.125 MG TAB PO SCH (09:56)
[2018-08-17] MEDS: Diltiazem HCl SR 60 mg Capsule PO SCH ×2 (09:57→23:01)
[2018-08-17] MEDS: DULoxetine 30 MG CAP PO SCH (09:58)
[2018-08-17] MEDS: Saccharomyces boulardii 250 MG CAP PO SCH (09:58)
[2018-08-17] MEDS: Flecainide 50 MG TAB PO SCH ×2 (09:58→21:05)
[2018-08-17] MEDS: Folic Acid/Vit B Comp W-C PO SCH (09:58)
[2018-08-17] MEDS: Ferrous Sulfate 325 MG TAB PO SCH ×2 (09:58→21:05)
[2018-08-17] MEDS: Fish Oil 1,000 MG CAP PO SCH (09:58)
[2018-08-17] MEDS: Magnesium Oxide 400 MG TAB PO SCH ×2 (09:58→21:05)
--- NOTE | 2018-08-17 15:05 | PDOC.PN ---
- Subjective Encounter Start Date: 08/17/18 Encounter Start Time: 14:45 Subjective: f/u for gross hematuria cauterization of vessels at bladder neck/ diverticul -: s/p 1u PRBC's and H/H stable currently. - Objective Resuscitation Status - Order Detail: 08/11/18 16:58 Resuscitation Status Routine Resuscitation Status: FULL: Full Resuscitation Discussed with: discussed w pt MAR Reviewed: Yes Vital Signs & Weight: Vital Signs (12 hours) Temp Pulse Resp BP BP Pulse Ox 08/17/18 09:56 66 08/17/18 07:37 98.3 F 67 18 148/54 H 95 08/17/18 05:05 62 16 137/62 94 L Weight Admit Weight 152 lb 8 oz Weight 152 lb 8 oz I&O: 08/16/18 08/17/18 08/18/18 06:59 06:59 06:59 Intake Total 940 250 Output Total 200 575 Balance 740 -325 Result Diagrams: 08/16/18 06:44 08/17/18 05:50 Additional Labs: Microbiology 08/11/18 10:49 Urine lubin catheter Urine Culture - Final Escherichia coli Laboratory Tests 08/11/18 08/12/18 08/13/18 17:04 05:28 06:07 Hgb 8.2 L Creatinine 3.66 H Hep Bs Antigen Non-Reactive 08/13/18 08/14/18 08/14/18 06:07 05:50 05:50 Hgb 7.8 L 7.5 L Creatinine 4.27 H Hep Bs Antigen 08/15/18 08/15/18 05:33 05:33 Hgb 9.1 L Creatinine 2.80 H Hep Bs Antigen Phys Exam - Physical Examination Constitutional: NAD HEENT: PERRLA, sclera anicteric, oral pharynx no lesions Neck: no nodes, no JVD, supple, full ROM Respiratory: no wheezing, no rales, no rhonchi, clear to auscultation bilateral S1, S2 Cardiovascular: RRR, no rub, gallop Gastrointestinal: soft, non-tender, no distention, positive bowel sounds Musculoskeletal: no edema, pulses present Neurological: normal sensation, moves all 4 limbs Skin: normal turgor, cap refill <2 seconds Dx/Plan (1) Acute on chronic blood loss anemia Code(s): D62 - ACUTE POSTHEMORRHAGIC ANEMIA Status: Acute Comment: On Epogen , s/p 1u PRBC's, hold all anticoagulation (2) Hematuria Code(s): R31.9 - HEMATURIA, UNSPECIFIED Status: Acute Comment: s/p CBI and Lubin catheter, s/p cauterization of bladder neck/diverticulum, hold all anticoagulation (3) UTI (urinary tract infection) Status: Acute Comment: E.Coli >100,000, Rocephin daily (4) ESRD (end stage renal disease) on dialysis Code(s): N18.6 - END STAGE RENAL DISEASE; Z99.2 - DEPENDENCE ON RENAL DIALYSIS Status: Chronic Comment: HD per Renal service (5) HTN (hypertension) Code(s): I10 - ESSENTIAL (PRIMARY) HYPERTENSION Status: Chronic Qualifiers: Hypertension type: essential hypertension Qualified Code(s): I10 - Essential (primary) hypertension Comment: Labile, resume home BP regimen, serial monitoring - Plan plan discussed w/ family, continue antibiotics, 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
--- NOTE | 2018-08-17 15:22 | PQF ---
DATE: 08-17-18 ATTN: DR. LALITHA BOYD Please exercise your independent, professional judgment in responding to the clarification form. Clinical indicators are provided on the bottom of this form for your review Please check appropriate box(s): [ ] Encephalopathy: Type: [ ] Acute [ ] Subacute [ ] Chronic Etiology: [ ] Metabolic [ ] Toxic [ ] Other (please specify) [ x ] Transient Alteration of Awareness [ ] Other diagnosis [ ] Unable to determine In addition, please specify: Present on Admission (POA): [ ] Yes [ x ] No [ ] Unable to determine For continuity of documentation, please document condition throughout progress notes and discharge summary. Thank You. CLINICAL INDICATORS - SIGNS / SYMPTOMS / LABS CONSULT NOTE DR. SANCHEZ 08-11-18: HX DEMENTIA, HE IS DISORIENTED X1, DEMENTIA, CONFUSION. CT SCAN DONE ON AUGUST 03 SUGGEST POSSIBILITY OF A NORMAL PRESSURE HYDROCEPHALUS CONSULT NOTE DR. SANCHEZ 08-13-18: HE STILL HAS INTERMITTENT CONFUSION CONSULT NOTE DR. SANCHEZ 08-16-18: STILL CONFUSED. HE DOES HAVE ? OF NORMAL PRESSURE HYDROCEPHALUS. NEUROLOGY MAY NEED TO EVALUATE THIS PT. CONSULT NOTE DR. SANCHEZ 08-17-18: LETHARGY- THIS COULD BE SECONDARY TO THE SIDE EFFECTS OF THE GEODON HE HAS BEEN RECEIVING. RISK FACTORS: CONSULT NOTE DR. SANCHEZ 08-17-18: LETHARGY- THIS COULD BE SECONDARY TO THE SIDE EFFECTS OF THE GEODON HE HAS BEEN RECEIVING. H&P 08-11-18: IN REHAB SINCE APR 2018, HE FELL AND BROKE R HIP, DEVELOPED PNEUMONIA AND UTI ABOUT 2 WKS AGO, PACEMAKER LEADS REPLACED TREATMENTS: BRAIN CT 08-14-18 MAR 08-12-18: ROCEPHIN IV (This form is maintained as a part of the permanent medical record) 2014 [employer]. All Rights Reserved BLADIMIR [email or web address] Office: [phone] [facility] HOSPITALIsabela
[2018-08-17] MEDS: cefTRIAXone\\ROCEPHIN 1 GM in Sodium Chloride 0.9% 100 ML IVPB SCH (15:24)
--- NOTE | 2018-08-17 18:26 | CON ---
DATE OF CONSULTATION: PRIMARY CARE PROVIDER: Sabas Marrero MD REASON FOR CONSULTATION: Hematuria, oral anticoagulation. HISTORY OF PRESENT ILLNESS: Mr. Stanley is a very pleasant 82-year-old gentleman known to our practice for history of atrial fibrillation, inclusion of a dual-chamber pacemaker for AV block and also for antiarrhythmic management with medical management for both arrhythmias and anticoagulation. He has been on low-dose Eliquis for anticoagulation by our records and tolerating this well. Unfortunately, recently he was admitted to [facility] after they noticed he had some hematuria. His Eliquis was stopped and bleeding did worsen. He presented to [facility] with gross hematuria, hemoglobin is 9.3. Urology was consulted. There was a cystoscopy performed and there was concern for chronic anticoagulation therapy based on the findings prompting the EP evaluation. Mr. Stanley is quite frail and debilitated for his age. He also has underlying dementia. REVIEW OF SYSTEMS: A 12-point review of systems was conducted as best possible. The patient does not have any concerns or complaints today. PAST MEDICAL HISTORY: 1. Sleep apnea. 2. Polycystic kidney disease. 3. End-stage renal disease on Tuesday, Tuesday, and Tuesday dialysis. 4. Hypertension. 5. Dyslipidemia. 6. Benign essential tremor. 7. Anemia of chronic disease. 8. AV block, status post dual-chamber pacemaker in 2010 (RV lead fracture prompting revision in April 2018). 9. Paroxysmal atrial fibrillation and atrial flutter, rate controlled by existing AV block. 10. Abdominal aortic aneurysm, status post endovascular repair in November 2017. 11. CHADS-VASc score of 4 on the basis of advanced age, hypertension, and vascular disease. ALLERGIES: IODINE, IV DYE, CODEINE, NOVOCAIN, HOME MEDICATIONS: 1. Tylenol as needed. 2. as needed. 3. Bisacodyl as needed. 4. B12 daily. 5. Digoxin 0.125 mg daily. 6. Lorazepam 0.5 mg b.i.d. p.r.n. 7. Iron 325 mg p.o. b.i.d. 8. Diltiazem ER 180 mg b.i.d. 9. [place]-3 one capsule daily. 10. Duloxetine 30 mg daily. 11. Pantoprazole 40 mg daily. 12. Eliquis 2.5 mg p.o. b.i.d. 13. Milk of magnesia as needed. 14. Flecainide 50 mg p.o. b.i.d. 15. Nephro-Sammy daily. 16. MiraLAX daily. 17. Toprol-XL 25 mg b.i.d. 18. Magnesium oxide 1 capsule p.o. b.i.d. FAMILY HISTORY: Positive for multiple myeloma in his brother and mother had a heart attack in her 80s. SOCIAL HISTORY: Retired from [employer]. Power of patent attorney is his daughter. No alcohol, tobacco, or illicit drug use. PHYSICAL EXAMINATION: VITAL SIGNS: Temperature 98.3, pulse 67, blood pressure 148/54, respirations 18, and oxygen is 95% on room air. GENERAL: The patient is alert and oriented. He is in no apparent distress. He is resting comfortably. He appears debilitated and chronically ill in addition to some pallor. HEENT: He is normocephalic and atraumatic. His oral mucosa is moist and pink with moderately poor dentition. NECK: Supple without jugular venous distention. CHEST: Clear to auscultation bilaterally. HEART: Rate is regularly regular. PMI nondisplaced. Pacemaker seen at the left infraclavicular fossa without swelling, bruising, erosion, or drainage. NEUROLOGIC: Nonfocal. Gait was not assessed. DATABASE: Hematology and chemistry were reviewed. IMPRESSION: 1. Recurrent atrial flutter/atrial fibrillation. 2. CHADS-VASc score of 4. 3. Atrioventricular block. 4. Dual-chamber pacemaker in place since 2010 with an RV lead revision in 2018. 5. End-stage renal disease, on dialysis. 6. Dementia. 7. General debility and frail condition. 8. Hematuria. RECOMMENDATIONS: Ongoing anticoagulation does present somewhat of a challenge with Mr. Stanley. His CHADS-VASc score is moderately elevated according to approximately 10% to 12% chance of stroke per year. This can be discussed with the family if they wish to continue oral anticoagulation or would decide to forego it and accept the risk for stroke. My recommendation would be to resume oral anticoagulation once cleared from Urology standpoint, possibly in 2 weeks. With his end-stage renal disease, we could consider transitioning him to warfarin instead of NOAC. 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 We can discuss Watchman as an outpatient with the patient and his daughter. For right now, we will have his pacemaker interrogated, but we are okay to hold Eliquis until acute bleeding issues have resolved. Thank you for allowing us to participate in the care of this patient. Job ID: [id number]
--- NOTE | 2018-08-17 18:47 | OP ---
DATE OF PROCEDURE: 08/16/2018 PREOPERATIVE DIAGNOSES: Gross hematuria and bladder diverticulum. POSTOPERATIVE DIAGNOSES: Gross hematuria and bladder diverticulum. PROCEDURES PERFORMED: Cystoscopy, clot evacuation from large bladder diverticulum, and fulguration of some bleeding vessels at the neck of the diverticulum. SPECIMENS: Path sent: None. ESTIMATED BLOOD LOSS: No significant active bleeding, less than . FINDINGS: A lot of old foul smelling clot in this relatively large diverticulum on the floor. He had no evidence of any prostatic obstruction. He has had a TUR in the past. His prostatic urethra still looks all normal and open, which likely he probably had a urethral stricture that was easily passed when his catheter was placed at [facility] last week. The bladder had some small tics and cellules, heavy trabeculation, very large bladder diverticulum just on the other side of the trigone as we enter the bladder. Two ureteral orifices with clear efflux. The tic itself was full of old blood, very foul smelling blood. I did not see any evidence of a bladder tumor, foreign body, stone, or fistula in the diverticulum or in the bladder. DESCRIPTION OF PROCEDURE: Obtained written and verbal consent from the patient's family, he was taken to the operating suite. He was placed in a supine position on the treatment table. PlexiPulses were placed on his lower extremities and turned on. He was given a general anesthetic and oral obturator intubation. He was placed in the dorsal lithotomy position, sterilely prepped and draped. Cystoscopy was performed with a 22-Australian sheath. This was well lubricated and passed under direct vision through the male urethra into the bladder with a 30-degree lens and video camera and monitor. The bladder was filled and emptied number of times being examined with both 30 and 70-degree lens. With a 70-degree lens, we were able to direct the tip of the scope into this diverticulum. We then drained out immediately a fairly impressive amount of old foul-smelling blood. We kept the tip of it in there and then used the InfoDif evacuator to evacuate all the blood out of this and then inspected it again with the 70 and 30-degree lens with the findings above. The only thing we could see bleeding was just a little bit of oozing from the neck of the bladder diverticulum itself and this was cauterized with a Bugbee unit. There was nothing suspicious in the bladder for us to do a biopsy or TURF. Once this was completed, we passed a 22-Australian Braxton and we placed 20 mL in the balloon and it was hand irrigated, was clear, restarted on continuous bladder irrigation, draining very clear. He was taken out of the dorsal lithotomy position, awakened, extubated, taken by stretcher to the recovery room. Job ID: [id number]
[2018-08-17] MEDS: Famotidine 20 MG TAB PO SCH (21:05)
--- NOTE | 2018-08-17 23:45 | CON ---
DATE OF CONSULTATION: 08/17/2018 CONSULTING PHYSICIAN: Dr. Betancourt. IMPRESSION: Transient agitated state superimposed on baseline dementia. PLAN: 1. Continue Seroquel, #3. 2. Jasperdon jarad. HISTORY OF PRESENT ILLNESS: Mr. Stanley is an 82-year-old gentleman with a history of atrial fibrillation on anticoagulation, end-stage renal disease, on dialysis. He presented with gross hematuria. He was admitted for further evaluation. He apparently became agitated after admission. He had a CT scan of the brain done, which showed [id number] periventricular white matter ischemic changes, has some diffuse cerebral atrophy. LABORATORY DATA: Only remarkable for his azotemia. He was treated with Seroquel last night, apparently had a quiet night. At this point, he is without any particular complaints. There are no family members available to interview. PAST MEDICAL HISTORY: As listed above. ALLERGIES: ANTIHISTAMINES, CAFFEINE, CODEINE, IODINE, NOVOCAIN. SOCIAL HISTORY: No tobacco or alcohol use. He is a long-term resident. FAMILY HISTORY: Noncontributory. REVIEW OF SYSTEMS: Limitedly useful given his dementia. PHYSICAL EXAMINATION: GENERAL: He is a well-nourished elderly man, lying in bed, in no distress. VITAL SIGNS: Had been stable. He is afebrile. HEENT: Pupils equal. Conjunctivae clear. Oropharynx clear. Cranium, normocephalic and atraumatic. NECK: Supple, no lymphadenopathy. EXTREMITIES: No cyanosis present. NEUROLOGIC: He was alert and oriented to person. He knew that he was in the hospital, but did not know where, he did not know his age, could not tell me where he lived. His speech is fluent and clear. He follow commands appropriately. Cranial nerves were intact. 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 No abnormal movements were seen. Gait was not tested. Sensation was intact to touch. LABORATORY DATA: EKG shows a paced rhythm. SUMMARY: Elderly gentleman with dementia who became a bit agitated during admission. He seems to be better at this point. I will continue antipsychotics. I will be available there is any further problems. Job ID: [id number]
[2018-08-18] MEDS: Lorazepam 0.5 MG TAB PO PRN ×2 (05:04→20:27)
[2018-08-18 06:35] LABS: #Eosinphils 0.1 thou/uL (0.0-0.7); #Lymphocytes 0.7 thou/uL (1.20-3.40); #Monocytes 0.3 thou/uL (0.11-0.59); #Neutrophils 2.8 thou/uL (1.40-6.50); %Basophils 0.3 % (0.0-1.0); %Eosinophils 3.4 % (0.0-10.0); %Lymphocytes 17.5 % (21.0-51.0); %Monocytes 7.3 % (0.0-10.0); %Neutrophils 71.5 % (42.0-75.0); Hemoglobin 9.5 g/dL (14.0-18.0); Mean Corpuscular HGB CONC 32.4 g/dL (32.0-36.0); Mean Corpuscular Hemoglobin 29.3 pg (27.0-31.0); Mean Corpuscular Volume 90.5 fL (78.0-98.0); Mean Platelet Volume 6.9 fL (7.4-10.4); Platelet Count 124 thou/uL (130-400); RBC Distribution Width 16.9 % (11.5-14.5); Red Blood Cell (RBC) Count 3.25 mill/uL (4.70-6.10)
[2018-08-18 07:08] LABS: Anion Gap 13 mmol/L (10-20); BUN (Urea Nitrogen) 40 mg/dL (8.4-25.7); Calc. Creatinine Clearance 14 mL/min (70-130); Calcium 8.5 mg/dL (7.8-10.44); Carbon Dioxide 29 mmol/L (23-31); Chloride 99 mmol/L (98-107); Estimated GFR-MDRD 14; Glucose 96 mg/dL (83-110); Potassium 4.4 mmol/L (3.5-5.1); Sodium 137 mmol/L (136-145)
--- NOTE | 2018-08-18 09:56 | PRG ---
DATE OF SERVICE: 08/18/2018 SUBJECTIVE: Mr. Stanley is an 82-year-old white male, followed up for his ESRD and currently on maintenance hemodialysis. I am at the bedside today supervising his dialysis. He is tolerating said treatment. No other complaints. He underwent a cystoscopy on August 17, 2018, with Dr. Jaeger. Clot evacuation was done and fulguration of some bleeding vessels was done. No other complaints today. He was also evaluated by Dr. Nunez, his neurologist for the issue of normal-pressure hydrocephalus. In addition, he was also evaluated for his agitation. Today, no new complaints. No chest pain or shortness of breath. OBJECTIVE: VITAL SIGNS: Blood pressure 144/58, heart rate 77, respiratory rate 18, temperature 99.9, and pulse ox 97%. GENERAL: Noted to be awake, alert, and comfortable, not in distress. SKIN: Adequate turgor. HEENT: Slightly pale conjunctivae. Anicteric sclerae. NECK: No neck mass. No carotid bruits. No JVD. CHEST: No deformities. LUNGS: Clear breath sounds. HEART: Normal sinus rhythm. No murmur. No gallops or rubs. ABDOMEN: Globular, soft, nontender. No masses. EXTREMITIES: No edema. No deformities. MEDICATIONS: Medications of August 18, 2018, reviewed. LABORATORY DATA: Laboratories of August 18, 2018: White count 4, hemoglobin 9.5. Sodium 137, potassium 4.4, chloride 99, carbon dioxide 29, BUN 40, creatinine 4.1, glucose 96, calcium 8.5. ASSESSMENT AND PLAN: 1. Anemia - we will resume Epogen 7500 units subcu every week. 2. End-stage renal disease, stable, tolerating current hemodialysis regimen. Fluid removal only as tolerated. 3. Gross hematuria, much improved, status post cystoscopy with fulguration of active bleeding vessels. Continue supportive care. Recheck CBC in a.m. Job ID: [id number]
[2018-08-18] MEDS ORDERED: diphenhydrAMINE 25 MG CAP PO PRN (11:59)
[2018-08-18] MEDS: DULoxetine 30 MG CAP PO SCH (12:25)
[2018-08-18] MEDS: Ferrous Sulfate 325 MG TAB PO SCH ×2 (12:25→20:27)
[2018-08-18] MEDS: Folic Acid/Vit B Comp W-C PO SCH (12:26)
[2018-08-18] MEDS: Fish Oil 1,000 MG CAP PO SCH (12:26)
[2018-08-18] MEDS: Saccharomyces boulardii 250 MG CAP PO SCH (12:26)
[2018-08-18] MEDS: Magnesium Oxide 400 MG TAB PO SCH ×2 (12:26→20:26)
[2018-08-18] MEDS: Flecainide 50 MG TAB PO SCH ×2 (12:27→20:26)
--- NOTE | 2018-08-18 14:32 | EKG ---
Test Reason : Blood Pressure : / mmHG Vent. Rate : 060 BPM Atrial Rate : 060 BPM P-R Int : 000 ms QRS Dur : 196 ms QT Int : 494 ms P-R-T Axes : -29 -77 025 degrees QTc Int : 494 ms AV dual-paced rhythm with prolonged AV conduction Abnormal ECG When compared with ECG of 30-AUG-2017 13:01, Electronic ventricular pacemaker has replaced Electronic atrial pacemaker Confirmed by TROY CARCAMO, SDemi ([id number]) on 08/18/2018 2:31:49 PM Referred By: Confirmed By:DR. Loc SIMMONS MD
--- NOTE | 2018-08-18 14:47 | PDOC.PN ---
- Subjective Encounter Start Date: 08/18/18 Encounter Start Time: 14:45 Subjective: f/u for gross hematuria s/p cautery of bladder neck/diverticulum -: and 1u PRBC's. Completed HD today with some itching improved -: with Benadryl. - Objective Resuscitation Status - Order Detail: 08/11/18 16:58 Resuscitation Status Routine Resuscitation Status: FULL: Full Resuscitation Discussed with: discussed w pt MAR Reviewed: Yes Vital Signs & Weight: Vital Signs (12 hours) Temp Pulse Resp BP BP Pulse Ox 08/18/18 12:37 98.4 F 62 18 135/58 L 99 08/18/18 12:30 99 08/18/18 07:33 99.9 F H 77 18 144/58 H 97 08/18/18 05:32 98.7 F 72 18 134/62 98 Weight Admit Weight 152 lb 8 oz Weight 152 lb 8 oz I&O: 08/17/18 08/18/18 08/19/18 06:59 06:59 06:59 Intake Total 250 500 Output Total 575 701 Balance -325 -201 Result Diagrams: 08/18/18 05:30 08/18/18 05:30 Additional Labs: Microbiology 08/11/18 10:49 Urine lubin catheter Urine Culture - Final Escherichia coli Laboratory Tests 08/11/18 08/12/18 08/13/18 17:04 05:28 06:07 Hgb 8.2 L Creatinine 3.66 H Hep Bs Antigen Non-Reactive 08/13/18 08/14/18 08/14/18 06:07 05:50 05:50 Hgb 7.8 L 7.5 L Creatinine 4.27 H Hep Bs Antigen 08/15/18 08/15/18 05:33 05:33 Hgb 9.1 L Creatinine 2.80 H Hep Bs Antigen EKG Reviewed by me: Yes (AV dual paced rhythm) Phys Exam - Physical Examination Constitutional: NAD alert, responsive HEENT: PERRLA, sclera anicteric, oral pharynx no lesions Neck: no nodes, no JVD, supple, full ROM Respiratory: no wheezing, no rales, no rhonchi, clear to auscultation bilateral Cardiovascular: RRR, no significant murmur, no rub, gallop Gastrointestinal: soft, non-tender, no distention, positive bowel sounds Musculoskeletal: no edema, pulses present Neurological: normal sensation, moves all 4 limbs Skin: normal turgor, cap refill <2 seconds Dx/Plan (1) Acute on chronic blood loss anemia Code(s): D62 - ACUTE POSTHEMORRHAGIC ANEMIA Status: Acute Comment: On Epogen , s/p 1u PRBC's, hold all anticoagulation, serial H/H (2) Hematuria Code(s): R31.9 - HEMATURIA, UNSPECIFIED Status: Acute Comment: s/p CBI and Lubin catheter, s/p cauterization of bladder neck/diverticulum, hold all anticoagulation, appears to be resolving (3) UTI (urinary tract infection) Status: Acute Comment: E.Coli >100,000, IV Rocephin since 08/12/18, september d/c in 24h (4) ESRD (end stage renal disease) on dialysis Code(s): N18.6 - END STAGE RENAL DISEASE; Z99.2 - DEPENDENCE ON RENAL DIALYSIS Status: Chronic Comment: HD per Renal service (5) HTN (hypertension) Code(s): I10 - ESSENTIAL (PRIMARY) HYPERTENSION Status: Chronic Qualifiers: Hypertension type: essential hypertension Qualified Code(s): I10 - Essential (primary) hypertension Comment: Labile, resume home BP regimen, serial monitoring - Plan continue antibiotics, PT/OT, long term care social worker, out of bed/ambulate Stable currently -: HD session completed today without complication -: PT for mobilization -: D/C Rocephin in 24h -: Plan to return to [facility] 08/19/18 * AM lab: H/H with plt
[2018-08-18] MEDS: cefTRIAXone\\ROCEPHIN 1 GM in Sodium Chloride 0.9% 100 ML IVPB SCH (15:02)
--- NOTE | 2018-08-18 15:57 | PDOC.CTH ---
Cardiology Progress Note - Subjective EP PROGRESS NOTE: 08/18/18 Seen as follow up for AF and anticoagulation management after recent acute hematuria. Feels slightly improved today but remains weak and tired. No new cardiac concerns or complaints. - Objective Vital Signs Temp Pulse Resp BP BP Pulse Ox 08/18/18 12:37 98.4 F 62 18 135/58 L 99 08/18/18 12:30 99 08/18/18 07:33 99.9 F H 77 18 144/58 H 97 08/18/18 05:32 98.7 F 72 18 134/62 98 Admit Weight 152 lb 8 oz Weight 152 lb 8 oz 08/17/18 08/18/18 08/19/18 06:59 06:59 06:59 Intake Total 250 500 Output Total 575 701 Balance -325 -201 - Physical Examination General/Neuro: alert & oriented x3, NAD Neck: carotid US brisk, no JVD present Lungs: CTA, unlabored respirations Heart: PMI normal, RRR Abdomen: NT/ND, soft - Telemetry Telemetry Rhythm: AV paced - Labs Result Diagrams: 08/18/18 05:30 08/18/18 05:30 - Assessment/Plan 1. Paroxysmal vs persistent atrial arrhythmias - flecainide 50mg PO BID - approx 30% AF burden 2. CHADS2-VASC: 4 - Eliquis on hold. - recommend resuming 2.5mg PO BID when medically feasible. Can discuss Watchman with pt and family as an outpatient. 3. Dual chamber PPM - interrogation normal operation Continue flecainide at current dose. May hold eliquis for 1-2 weeks but would recommend resume if able to tolerate continued therapy
[2018-08-18] MEDS: Diltiazem HCl SR 60 mg Capsule PO SCH ×2 (19:04→20:26)
[2018-08-18] MEDS: Digoxin 0.125 MG TAB PO SCH (19:04)
[2018-08-18] MEDS: Famotidine 20 MG TAB PO SCH (20:27)
[2018-08-18] MEDS: Acetaminophen 325 MG TAB PO PRN (20:27)
[2018-08-19 07:50] LABS: Hemoglobin 9.7 g/dL (14.0-18.0); Platelet Count 108 thou/uL (130-400)
[2018-08-19 08:07] LABS: Anion Gap 10 mmol/L (10-20); BUN (Urea Nitrogen) 31 mg/dL (8.4-25.7); Calc. Creatinine Clearance 17 mL/min (70-130); Calcium 8.2 mg/dL (7.8-10.44); Carbon Dioxide 30 mmol/L (23-31); Chloride 102 mmol/L (98-107); Estimated GFR-MDRD 18; Glucose 76 mg/dL (83-110); Potassium 3.9 mmol/L (3.5-5.1); Sodium 138 mmol/L (136-145)
[2018-08-19] MEDS: Folic Acid/Vit B Comp W-C PO SCH (08:43)
[2018-08-19] MEDS: Lorazepam 0.5 MG TAB PO PRN ×2 (08:43→20:10)
[2018-08-19] MEDS: Flecainide 50 MG TAB PO SCH ×2 (08:43→20:09)
[2018-08-19] MEDS: Saccharomyces boulardii 250 MG CAP PO SCH (08:44)
[2018-08-19] MEDS: Digoxin 0.125 MG TAB PO SCH (08:44)
[2018-08-19] MEDS: Fish Oil 1,000 MG CAP PO SCH (08:45)
[2018-08-19] MEDS: Ferrous Sulfate 325 MG TAB PO SCH ×2 (08:45→20:09)
[2018-08-19] MEDS: Magnesium Oxide 400 MG TAB PO SCH ×2 (08:45→20:08)
[2018-08-19] MEDS: DULoxetine 30 MG CAP PO SCH (08:45)
[2018-08-19] MEDS: Diltiazem HCl SR 60 mg Capsule PO SCH ×2 (08:45→20:08)
[2018-08-19] MEDS: Epoetin (ESRD) 20,000 UNITS/ML SC SCH (10:42)
--- NOTE | 2018-08-19 11:01 | PRG ---
DATE OF SERVICE: 08/19/2018 The patient's catheter came out yesterday. He has just been slow to fill because he does not make a lot of urine and he was originally scanned for 130mL this morning as he had not urinated yet. Currently, I had to awaken him but as we talked more, he says that "maybe possibly I need to void now". He was most recently scanned for 263mL. We reviewed how he should get up, walk around, and attempt voiding. If he is adequately voiding at least half of that, then we would keep the catheter out, but certainly if there is concern for inability to void with urgency or discomfort, then the catheter should be replaced. Monitor for now and continue antibiotics for his Escherichia coli infection. Job ID: [id number] MTDD
--- NOTE | 2018-08-19 11:43 | PRG ---
DATE OF SERVICE: 08/19/2018 SUBJECTIVE: Mr. Stanley is an 82-year-old white male, followed up by the Renal Service for his maintenance hemodialysis. Doing well. He is tolerating hemodialysis. He is off heparin for the dialysis due to the recent gross hematuria. He has also undergone cystoscopy with fulguration of the bleeding vessels in the bladder. No other complaints today. He still has his baseline confusion. OBJECTIVE: VITAL SIGNS: Blood pressure is 139/67, heart rate 78, respiratory rate 16, temperature 97.8, and pulse ox 98%. GENERAL: Noted to be awake, supine, comfortable, not in overt distress. SKIN: Adequate turgor. HEENT: Pinkish conjunctivae. Anicteric sclerae. No neck mass. No carotid bruits. No JVD. CHEST: No deformities. LUNGS: Clear breath sounds. HEART: Normal sinus rhythm. No murmurs, no gallops, no rubs. ABDOMEN: Globular, soft, nontender. No masses. EXTREMITIES: No edema. No deformities. MEDICATIONS: Medications of August 19, 2018, reviewed. LABORATORY DATA: Laboratories of August 19, 2018, hemoglobin 9.7. Sodium 138, potassium 3.9, chloride 102, carbon dioxide 30, BUN 31, creatinine 3.26, glucose 76, calcium 8.2. ASSESSMENT AND PLAN: 1. End-stage renal disease, stable. Continue current maintenance hemodialysis on Tuesday, Tuesday, and Tuesday. No heparin due to the recent gross hematuria. 2. Gross hematuria, resolved, status post cystoscopy with fulguration of bleeding vessels. 3. Chronic atrial fibrillation-currently in normal sinus rhythm. Dr. Henriquez following. Possible Watchman procedure might be done in the near future. 4. ? of dementia. Supportive care. 5. Agree with current management. Job ID: [id number]
[2018-08-19] MEDS: cefTRIAXone\\ROCEPHIN 1 GM in Sodium Chloride 0.9% 100 ML IVPB SCH (14:50)
--- NOTE | 2018-08-19 15:49 | PDOC.PN ---
- Subjective Encounter Start Date: 08/19/18 Encounter Start Time: 15:47 Subjective: More appropriate today. Pass some urine after removal of lubin - Objective Resuscitation Status - Order Detail: 08/11/18 16:58 Resuscitation Status Routine Resuscitation Status: FULL: Full Resuscitation Discussed with: discussed w pt Vital Signs & Weight: Vital Signs (12 hours) Temp Pulse Resp BP Pulse Ox 08/19/18 08:44 78 08/19/18 08:00 98 08/19/18 07:18 97.8 F 78 16 139/67 98 08/19/18 05:09 98.5 F 77 20 144/71 H 94 L Weight Admit Weight 152 lb 8 oz Weight 152 lb 8 oz I&O: 08/18/18 08/19/18 08/20/18 06:59 06:59 06:59 Intake Total 500 935 480 Output Total 701 1000 150 Balance -201 -65 330 Result Diagrams: 08/19/18 07:41 08/19/18 07:41 Phys Exam - Physical Examination Constitutional: NAD HEENT: PERRLA, moist MMs Neck: no JVD, supple fair air entry bilaterally Cardiovascular: RRR Gastrointestinal: soft, non-tender Musculoskeletal: no edema Neurological: moves all 4 limbs conscious and alert. Oriente to person and place Dx/Plan (1) Gross hematuria Status: Acute (2) Acquired bladder diverticulum Code(s): N32.3 - DIVERTICULUM OF BLADDER Status: Acute (3) Acute metabolic encephalopathy Code(s): G93.41 - METABOLIC ENCEPHALOPATHY Status: Acute (4) Status post biventricular pacemaker Code(s): Z95.0 - PRESENCE OF CARDIAC PACEMAKER Status: Acute (5) Acute on chronic blood loss anemia Code(s): D62 - ACUTE POSTHEMORRHAGIC ANEMIA Status: Acute Comment: On Epogen , s/p 1u PRBC's, hold all anticoagulation, serial H/H (6) UTI (urinary tract infection) Status: Acute Comment: E.Coli >100,000, IV Rocephin since 08/12/18, september d/c in 24h (7) ESRD (end stage renal disease) on dialysis Code(s): N18.6 - END STAGE RENAL DISEASE; Z99.2 - DEPENDENCE ON RENAL DIALYSIS Status: Chronic Comment: HD per Renal service (8) HLD (hyperlipidemia) Code(s): E78.5 - HYPERLIPIDEMIA, UNSPECIFIED Status: Chronic (9) HTN (hypertension) Code(s): I10 - ESSENTIAL (PRIMARY) HYPERTENSION Status: Chronic Qualifiers: Hypertension type: essential hypertension Qualified Code(s): I10 - Essential (primary) hypertension Comment: Labile, resume home BP regimen, serial monitoring (10) Paroxysmal atrial fibrillation Code(s): I48.0 - PAROXYSMAL ATRIAL FIBRILLATION Status: Chronic - Plan Continue antibiotics -: monitor patient for urinary retention -: HD as per Nephrology. -: Off anticoagulation for now. * .
[2018-08-19] MEDS: Acetaminophen 325 MG TAB PO PRN (20:09)
[2018-08-19] MEDS: Famotidine 20 MG TAB PO SCH (20:09)
[2018-08-20 07:14] LABS: Anion Gap 11 mmol/L (10-20); BUN (Urea Nitrogen) 46 mg/dL (8.4-25.7); Calc. Creatinine Clearance 13 mL/min (70-130); Calcium 8.3 mg/dL (7.8-10.44); Carbon Dioxide 30 mmol/L (23-31); Chloride 99 mmol/L (98-107); Estimated GFR-MDRD 14; Glucose 72 mg/dL (83-110); Potassium 3.9 mmol/L (3.5-5.1); Sodium 136 mmol/L (136-145)
[2018-08-20] MEDS: DULoxetine 30 MG CAP PO SCH (08:50)
[2018-08-20] MEDS: Fish Oil 1,000 MG CAP PO SCH (08:50)
[2018-08-20] MEDS: Magnesium Oxide 400 MG TAB PO SCH ×2 (08:50→20:31)
[2018-08-20] MEDS: Saccharomyces boulardii 250 MG CAP PO SCH (08:51)
[2018-08-20] MEDS: Ferrous Sulfate 325 MG TAB PO SCH ×2 (08:51→20:31)
[2018-08-20] MEDS: Folic Acid/Vit B Comp W-C PO SCH (08:51)
[2018-08-20] MEDS: Flecainide 50 MG TAB PO SCH ×2 (08:51→20:31)
[2018-08-20] MEDS: Digoxin 0.125 MG TAB PO SCH (08:53)
[2018-08-20] MEDS: Diltiazem HCl SR 60 mg Capsule PO SCH ×2 (08:53→20:31)
--- NOTE | 2018-08-20 12:24 | PRG ---
DATE OF SERVICE: 08/20/2018 SUBJECTIVE: Mr. Stanley is an 82-year-old white male with ESRD and followed by the Renal Service for his maintenance hemodialysis. He is doing well this morning. He is more awake. His appetite is excellent. He still has an occasional confusion. His gross hematuria is now resolved. Please note, he is status post cystoscopy. In addition, the patient has been seen by Dr. Henriquez due to the AFib. In the future, consideration for a Watchman procedure is being entertained for this patient. He is currently not receiving anticoagulation due to the recent gross hematuria. No complaints of chest pain or shortness of breath. OBJECTIVE: VITAL SIGNS: Blood pressure 135/50, heart rate 59, respiratory rate 16, temperature 98.4, and pulse ox 98%. GENERAL: Noted to be awake, supine, comfortable, not in distress. SKIN: Adequate turgor. HEENT: Slightly pale conjunctivae. Anicteric sclerae. NECK: No neck mass. No carotid bruits. No JVD. CHEST: No deformities. LUNGS: Decreased breath sounds. HEART: Normal sinus rhythm. No murmurs. No gallops. No rubs. ABDOMEN: Globular, soft, and nontender. No masses. EXTREMITIES: No edema. No deformities. MEDICATIONS: Medications of August 20, 2018, reviewed. LABORATORY DATA: laboratories OF August 20, 2018; sodium 136, potassium 3.9, chloride 99, carbon dioxide 30, BUN 46, creatinine 4.16, glucose 72, and calcium 8.3. On August 19, 2018; hemoglobin 9.7. ASSESSMENT AND PLAN: 1. Gross hematuria, resolved, status post cystoscopy with fulguration of bleeding vessels. 2. Anemia - chronic in nature. Continuing weekly Epogen. 3. End-stage renal disease, stable. No indication for any emergent hemodialysis today. We will continue on Tuesday, Tuesday, and Tuesday dialysis. Again, fluid removal as tolerated. We will attempt no heparin use due to the recent gross hematuria. 4. Atrial fibrillation - Dr. Henriquez following consideration for future Watchman procedure. Overall, agree with current management. Recheck basic metabolic panel and CBC in a.m. Job ID: [id number]
[2018-08-20] MEDS: cefTRIAXone\\ROCEPHIN 1 GM in Sodium Chloride 0.9% 100 ML IVPB SCH (14:16)
--- NOTE | 2018-08-20 17:26 | PDOC.PN ---
- Subjective Encounter Start Date: 08/20/18 Encounter Start Time: 17:24 Subjective: NO new problem -: Passing urine with no difficulty. -: Still with some confusion. - Objective Resuscitation Status - Order Detail: 08/11/18 16:58 Resuscitation Status Routine Resuscitation Status: FULL: Full Resuscitation Discussed with: discussed w pt Vital Signs & Weight: Vital Signs (12 hours) Temp Pulse Resp BP BP Pulse Ox 08/20/18 11:54 98.4 F 59 L 16 129/55 L 98 08/20/18 08:53 67 08/20/18 08:51 98 08/20/18 08:00 98.4 F 59 L 16 135/50 L 98 Weight Admit Weight 152 lb 8 oz Weight 152 lb 8 oz I&O: 08/19/18 08/20/18 08/21/18 06:59 06:59 06:59 Intake Total 935 860 Output Total 1000 150 Balance -65 710 Result Diagrams: 08/19/18 07:41 08/20/18 06:09 Phys Exam - Physical Examination Constitutional: NAD HEENT: PERRLA, moist MMs Neck: no JVD, supple Respiratory: no wheezing, no rales, no rhonchi, clear to auscultation bilateral Cardiovascular: RRR Gastrointestinal: soft, non-tender, no distention, positive bowel sounds Musculoskeletal: no edema, pulses present Neurological: non-focal, moves all 4 limbs some confusion and memory lapses noted Dx/Plan (1) Gross hematuria Status: Acute Comment: Resolved (2) Acquired bladder diverticulum Code(s): N32.3 - DIVERTICULUM OF BLADDER Status: Acute (3) Acute metabolic encephalopathy Code(s): G93.41 - METABOLIC ENCEPHALOPATHY Status: Acute Comment: Improving (4) Status post biventricular pacemaker Code(s): Z95.0 - PRESENCE OF CARDIAC PACEMAKER Status: Acute (5) Acute on chronic blood loss anemia Code(s): D62 - ACUTE POSTHEMORRHAGIC ANEMIA Status: Acute Comment: On Epogen , s/p 1u PRBC's, hold all anticoagulation, serial H/H (6) UTI (urinary tract infection) Status: Acute Comment: E.Coli >100,000, IV Rocephin since 08/12/18 (7) ESRD (end stage renal disease) on dialysis Code(s): N18.6 - END STAGE RENAL DISEASE; Z99.2 - DEPENDENCE ON RENAL DIALYSIS Status: Chronic Comment: HD per Renal service (8) HLD (hyperlipidemia) Code(s): E78.5 - HYPERLIPIDEMIA, UNSPECIFIED Status: Chronic (9) HTN (hypertension) Code(s): I10 - ESSENTIAL (PRIMARY) HYPERTENSION Status: Chronic Qualifiers: Hypertension type: essential hypertension Qualified Code(s): I10 - Essential (primary) hypertension Comment: Labile, resume home BP regimen, serial monitoring (10) Paroxysmal atrial fibrillation Code(s): I48.0 - PAROXYSMAL ATRIAL FIBRILLATION Status: Chronic - Plan Continue Rocephin to 10 day course end date 08/21/2018. -: Continue other treatment. -: monitor H/H I discussed risks and benefits of recommencement of anticoagulation keeping in mind likelihood of bladder bleeding with patient's spouse and daughter at the bedside. They are of the view that the risk of bleeding seems higher than risk of cardiac clot and stroke. Hence they decided that anticoagulation should not be restarted. I discussed also option of watchman procedure, they alos do not want that since some period of anticoagulation in addition to surgery will be required. Of note patient daughter is a nurse practitioner with cardiology. We will therefore plan on discharging patient tomorrow after HD. * .
[2018-08-20] MEDS: Lorazepam 0.5 MG TAB PO PRN (20:31)
[2018-08-20] MEDS: Famotidine 20 MG TAB PO SCH (20:31)
[2018-08-21 06:59] LABS: #Eosinphils 0.1 thou/uL (0.0-0.7); #Lymphocytes 0.8 thou/uL (1.20-3.40); #Monocytes 0.3 thou/uL (0.11-0.59); #Neutrophils 2.3 thou/uL (1.40-6.50); %Basophils 0.4 % (0.0-1.0); %Eosinophils 3.4 % (0.0-10.0); %Lymphocytes 22.4 % (21.0-51.0); %Monocytes 8.1 % (0.0-10.0); %Neutrophils 65.7 % (42.0-75.0); Hemoglobin 8.8 g/dL (14.0-18.0); Mean Corpuscular Hemoglobin 29.6 pg (27.0-31.0); Mean Corpuscular Volume 89.6 fL (78.0-98.0); Mean Platelet Volume 7.1 fL (7.4-10.4); Platelet Count 108 thou/uL (130-400); RBC Distribution Width 16.7 % (11.5-14.5); Red Blood Cell (RBC) Count 2.97 mill/uL (4.70-6.10); White Blood Cell (WBC) Count 3.5 thou/uL (4.8-10.8)
[2018-08-21 07:19] LABS: Anion Gap 12 mmol/L (10-20); BUN (Urea Nitrogen) 53 mg/dL (8.4-25.7); Calc. Creatinine Clearance 12 mL/min (70-130); Calcium 8.2 mg/dL (7.8-10.44); Carbon Dioxide 28 mmol/L (23-31); Chloride 100 mmol/L (98-107); Estimated GFR-MDRD 12; Glucose 79 mg/dL (83-110); Potassium 4.3 mmol/L (3.5-5.1); Sodium 136 mmol/L (136-145)
--- NOTE | 2018-08-21 08:47 | PRG ---
DATE OF SERVICE: 08/20/2018 SUBJECTIVE: The patient has specific complaints rather than feeling like he has not been checked on and needs assistance with his activities of daily living. He has no pain and he does report voiding without difficulty after his PVR was checked yesterday, which was actually not a postvoid, but rather just a bladder scan and he had 260. He was able to void a significant amount after that, but I do not think bladder scan has been checked since, but he has voided at least a 150 more since then. OBJECTIVE: He has been afebrile with vital signs stable and the urine in the urinal at his bedside is not hematuric, rather does appear quite cloudy still. ASSESSMENT: We have an 82-year-old man, who was admitted with hematuria and underwent cystoscopy with clot evacuation with irritation and bleeding noted from the mouth of a large diverticulum, who always have chronic emptying insufficiencies based on this diverticulum and is complicated by his low volume and is now no longer hematuric, but may still have significant inflammation, if not bacteria remaining in the urine, but is clinically doing well and responding to antibiotic therapy for his infection. Job ID: [id number] MTDD
--- NOTE | 2018-08-21 09:14 | PRG ---
DATE OF SERVICE: 08/21/2018 SUBJECTIVE: Mr. Stanley is an 82-year-old white male with ESRD and currently undergoing dialysis. I am at the bedside supervising his dialysis. He was initially admitted for gross hematuria. He underwent cystoscopy with fulguration of the bleeding vessels. Since that time, he is doing better. No new complaints. No chest pain or shortness of breath. OBJECTIVE: VITAL SIGNS: Blood pressure is 142/53, heart rate 90, respiratory rate 18, temperature 98.8, and pulse oximetry 97%. GENERAL: Awake, alert, comfortable, not in distress. SKIN: Adequate turgor. HEENT: He has pinkish conjunctivae. Anicteric sclerae. NECK: No neck mass. No carotid bruits. No JVD. CHEST: No deformities. LUNGS: Clear breath sounds. No wheezing. No crackles. HEART: Normal sinus rhythm. No murmur. No gallops. No rubs. ABDOMEN: Globular, soft, nontender. No masses. EXTREMITIES: No edema, no deformities. MEDICATIONS: Of August 21, 2018 was reviewed. LABORATORY DATA: Of August 21, 2018; white count 3.5, hemoglobin 8.8. Sodium 136, potassium 4.3, chloride 100, carbon dioxide 28, BUN 53, creatinine 4.63, glucose 79, and calcium 8.2. ASSESSMENT AND PLAN: 1. Anemia, stable. Continuing weekly Epogen. Continue iron supplementation and p.r.n. blood transfusion for hemoglobin less than 7. 2. End-stage renal disease, stable. Continue heparin free hemodialysis. Fluid removal only as tolerated. Continue Tuesday, Tuesday, and Tuesday dialysis regimen. 3. Gross hematuria, much improved, no recurrence of gross hematuria. 4. Recheck CBC in a.m. Job ID: [id number]
[2018-08-21] MEDS: Diltiazem HCl SR 60 mg Capsule PO SCH (12:15)
[2018-08-21] MEDS: Folic Acid/Vit B Comp W-C PO SCH (12:16)
[2018-08-21] MEDS: Fish Oil 1,000 MG CAP PO SCH (12:16)
[2018-08-21] MEDS: Digoxin 0.125 MG TAB PO SCH (12:17)
[2018-08-21] MEDS: Saccharomyces boulardii 250 MG CAP PO SCH (12:17)
[2018-08-21] MEDS: DULoxetine 30 MG CAP PO SCH (12:18)
[2018-08-21] MEDS: Flecainide 50 MG TAB PO SCH (12:18)
[2018-08-21] MEDS: Magnesium Oxide 400 MG TAB PO SCH (12:18)
[2018-08-21] MEDS: Ferrous Sulfate 325 MG TAB PO SCH (12:19)
[2018-08-21] MEDS: cefTRIAXone\\ROCEPHIN 1 GM in Sodium Chloride 0.9% 100 ML IVPB SCH (14:34)
[2018-08-21] MEDS: Lorazepam 0.5 MG TAB PO PRN (14:38)
--- NOTE | 2018-08-21 15:30 | DIS ---
DATE OF ADMISSION: 08/11/2018 DATE OF DISCHARGE: 08/21/2018 DISCHARGE DIAGNOSES: 1. Gross hematuria. 2. Acquired bladder diverticulum. 3. Acute metabolic encephalopathy. 4. Acute on chronic blood loss anemia. 5. Escherichia coli urinary tract infection. 6. End-stage renal disease, on regular hemodialysis. 7. Hyperlipidemia. 8. Hypertension. 9. Paroxysmal atrial fibrillation. 10. Chronic anticoagulation with Eliquis. 11. Physical deconditioning. CONSULTS: 1. Nephrology. 2. Urology. 3. Cardiology/EPS. 4. Critical Care. HOSPITAL COURSE: An 82-year-old male patient with known history of paroxysmal atrial fibrillation on chronic anticoagulation with Eliquis, end-stage renal disease on hemodialysis, hypertension, and others, who is currently in a senior living facility for rehabilitation, brought due to acute onset of gross hematuria. The patient initially was started on bladder irrigation and later was seen by Urology, who took the patient to OR for cystoscopy during which he was found to have large bladder diverticulum with clot. Clots were evacuated and the patient was seen to be bleeding from vessels at the neck of the diverticulum, hence he had fulguration of the bleeding vessels. The patient received blood transfusion for acute blood loss. He also was found to have urinary tract infection, which was treated appropriately with 10 days of Rocephin. Urine culture grew E. coli, which was susceptible to Rocephin. Given that the patient is on chronic anticoagulation for atrial fibrillation and with high risk of rebleeding from the bladder diverticulum, Electrophysiology consult was obtained to determine need for continuation of anticoagulation. EP reviewed that the patient is still at increased risk of cardioembolic event. However, he recommended that the family should determine how they want to proceed given that continuation of anticoagulation is with risk of bleeding while discontinuation is associated with increased risk of stroke. He also added the third option of Watchman procedure. These three options were discussed with patient, spouse, and daughter, who is a nurse practitioner with Cardiology Service. On reviewing all the options, they decided to discontinue anticoagulation since according to them, they feel that the risk of bleeding seems more likely. Post cystoscopy, there was no further massive bleeding and Braxton catheter was subsequently removed. The patient was voiding appropriately and urine was clear. Hemoglobin remained stable subsequently. Hospital course also was complicated by development of acute metabolic encephalopathy, which was thought to be related to UTI as well as new environment. Mental status improved with reorientation and treatment of UTI. The patient remained stable and was subsequently discharged back to the senior living facility for further restorative therapy. PHYSICAL EXAMINATION: VITAL SIGNS: Temperature 99.2, pulse 64, respiratory rate 20, SpO2 of 100% on room air, blood pressure 153/84. GENERAL: Healthy-looking, comfortable male, in no obvious distress. Afebrile. Anicteric. Acyanotic. HEENT: Normocephalic, atraumatic. Pupils are equal and reacting to light. CARDIOVASCULAR: Regular rhythm and rate with normal sounds one and two. RESPIRATORY: Good air entry bilaterally with some transmitted sounds. No obvious rhonchi or crackle was appreciated. GI: Abdomen is full, soft, nontender, nondistended with normal bowel sounds. EXTREMITIES: Grossly normal looking atraumatic with no edema or erythema. NEUROLOGIC: Conscious and alert, oriented to person at least. The patient answers some questions appropriately. Some memory lapses and mild confusion persists. There is no agitation or restlessness. The patient moves all extremities. DISCHARGE CONDITION: Improved and stable. FOLLOWUP: 1. With PCP in 1 week. 2. With Urology in 2 weeks. 3. With EPS in 3 to 4 weeks. DISCHARGE MEDICATIONS: 1. Vitamin B12 of 1000 mcg p.o. daily. 2. Digoxin 0.125 mg daily. 3. Diltiazem ER 180 mg p.o. b.i.d. 4. Docusate 100 mg p.o. b.i.d. 5. Cymbalta 30 mg p.o. daily. 6. Ferrous sulfate 325 mg p.o. b.i.d. 7. Flecainide 50 mg p.o. b.i.d. 8. Folic acid with vitamin C (Nephro-Sammy one tablet p.o. daily). 9. Lorazepam 0.5 mg p.o. b.i.d. 10. Magnesium Hydroxide 30 mL p.o. daily. 11. Magnesium oxide 1 capsule p.o. b.i.d. 12. Metoprolol succinate that is Toprol-XL 25 mg p.o. daily. 13. Worthington-3 one capsule daily. 14. Protonix 40 mg daily. 15. MiraLAX 17 g p.o. daily. 16. Noteworthy, Eliquis was discontinued in line with the patient and family desired. TIME SPENT WITH PATIENT: This discharge took more than 38 minutes. Job ID: [id number]
[2018-08-21 16:54] VITALS: BP 120/44; TEMP 98.9
== END 2018-08-21 17:41 | DRG 662 ==
LOC: ERS 10:09 → T4-A 13:58
PROVIDERS: ADMIT Internal Medicine; ATTEND Internal Medicine
PROC: 5A1D70Z Performance of Urinary Filtration, Intermittent, Less than 6 Hours Per Day (ICD-10-PCS; 2018-08-12)
PROC: 5A1D70Z Performance of Urinary Filtration, Intermittent, Less than 6 Hours Per Day (ICD-10-PCS; 2018-08-14)
PROC: 0W3R8ZZ Control Bleeding in Genitourinary Tract, Via Natural or Artificial Opening Endoscopic (ICD-10-PCS; principal; 2018-08-16)
PROC: 0T9B8ZZ Drainage of Bladder, Via Natural or Artificial Opening Endoscopic (ICD-10-PCS; 2018-08-16)
PROC: 5A1D70Z Performance of Urinary Filtration, Intermittent, Less than 6 Hours Per Day (ICD-10-PCS; 2018-08-16)
PROC: 5A1D70Z Performance of Urinary Filtration, Intermittent, Less than 6 Hours Per Day (ICD-10-PCS; 2018-08-18)
PROC: 5A1D70Z Performance of Urinary Filtration, Intermittent, Less than 6 Hours Per Day (ICD-10-PCS; 2018-08-21)
DX: N32.3 Diverticulum of bladder (principal); G93.41 Metabolic encephalopathy; N18.6 End stage renal disease; I12.0 Hypertensive chronic kidney disease with stage 5 chronic kidney disease or end stage renal disease; D62 Acute posthemorrhagic anemia; N39.0 Urinary tract infection, site not specified; R31.0 Gross hematuria; I48.2 Chronic atrial fibrillation; D63.1 Anemia in chronic kidney disease; Z99.2 Dependence on renal dialysis; E78.5 Hyperlipidemia, unspecified; G47.33 Obstructive sleep apnea (adult) (pediatric); B96.20 Unspecified Escherichia coli [E. coli] as the cause of diseases classified elsewhere; Z88.5 Allergy status to narcotic agent; Z91.030 Bee allergy status; Z88.6 Allergy status to analgesic agent; Z88.8 Allergy status to other drugs, medicaments and biological substances; Z79.82 Long term (current) use of aspirin; Z79.01 Long term (current) use of anticoagulants; Z79.899 Other long term (current) drug therapy; Z95.0 Presence of cardiac pacemaker; Z96.653 Presence of artificial knee joint, bilateral
CPT/HCPCS: 36415; 36430; 51700; 70470; 74178; 80048; 80053; 81003; 81015; 84153; 85014; 85018; 85025; 85049; 86850; 86900; 86901; 87077; 87086; 87186; 87340; 90935; 93005; 93010; 94760; G0257; J0696; J1644; J2001; J2250; J2405; J2704; J3010; J3486; J7050; P9016; Q0163; Q4081

== ENCOUNTER 2019-04-04 07:21 | Outpatient (CLI) | payer MEDICARE, BC ==
--- NOTE | 2019-04-04 10:07 | CT ---
CTA ABDOMEN AND PELVIS WITH IV CONTRAST AND 3D POST PROCESSING: HISTORY: Abdominal aortic aneurysm. Endoluminal graft repair. COMPARISON: 04/10/2018 FINDINGS: The abdominal aortic aneurysm is stable, measuring 5.2 x 5.6 cm. The type IIIa Endo leak is again see n. The left common iliac artery aneurysm is stable, measuring 2 cm. Contrast extending from the proxi mal graft into the sac, along with what appears to be the junction of the aortic and iliac graft comp onents, is stable. Polycystic kidneys and low density lesions in the liver are stable. The spleen, pancreas and adrenal glands are normal. No free air or free fluid is seen in the abdomen or pelvis. The posterior urinary bladder diverticulu m is again noted. There are degenerative changes in the spine. IMPRESSION: Stable type IIIa Endoleak since 04/10/2018. POS: YONG
[2019-04-04] MEDS ORDERED: Iopamidol 370 76% 100 ML VIAL ONE (11:28)
== END 2019-04-04 07:22 | disposition home or self-care (01) ==
LOC: CT 07:21
DX: T82.330A Leakage of aortic (bifurcation) graft (replacement), initial encounter (principal)
CPT/HCPCS: 74174; Q9967

== ENCOUNTER 2019-05-14 13:35 | Observation (INO) | payer MEDICARE, BC ==
[2019-05-14 17:07] LABS: #Eosinphils 0.1 thou/uL (0.0-0.7); #Lymphocytes 1.1 thou/uL (1.20-3.40); #Monocytes 0.4 thou/uL (0.11-0.59); #Neutrophils 2.4 thou/uL (1.40-6.50); %Basophils 0.6 % (0.0-1.0); %Eosinophils 2.4 % (0.0-10.0); %Lymphocytes 27.8 % (21.0-51.0); %Monocytes 9.6 % (0.0-10.0); %Neutrophils 59.6 % (42.0-75.0); Hemoglobin 9.4 g/dL (14.0-18.0); Mean Corpuscular HGB CONC 32.7 g/dL (32.0-36.0); Mean Corpuscular Hemoglobin 32.7 pg (27.0-31.0); Mean Corpuscular Volume 99.9 fL (78.0-98.0); Mean Platelet Volume 6.5 fL (7.4-10.4); Platelet Count 79 thou/uL (130-400); RBC Distribution Width 13.1 % (11.5-14.5); Red Blood Cell (RBC) Count 2.87 mill/uL (4.70-6.10)
[2019-05-14 17:56] LABS: Anion Gap 21 mmol/L (10-20); BUN (Urea Nitrogen) 129 mg/dL (8.4-25.7); Calc. Creatinine Clearance 0 mL/min (70-130); Calcium 9.5 mg/dL (7.8-10.44); Carbon Dioxide 20 mmol/L (23-31); Chloride 103 mmol/L (98-107); Estimated GFR-MDRD 4; Glucose 92 mg/dL (83-110); Potassium 5.4 mmol/L (3.5-5.1); Sodium 139 mmol/L (136-145)
[2019-05-14] MEDS ORDERED: Apixaban 2.5 MG TAB PO SCH (23:00)
[2019-05-14 23:02] VITALS: BMI 23.3
[2019-05-14] MEDS ORDERED: Bisacodyl 10 MG SUPP PR PRN (23:10)
[2019-05-14] MEDS ORDERED: Acetaminophen 325 MG TAB PO PRN (23:10)
[2019-05-14] MEDS ORDERED: Calcium Carbonate 500 MG ChewTAB PO PRN (23:10)
[2019-05-14] MEDS ORDERED: Nitroglycerin 0.4 MG TAB (25 Tab Bottle) PO PRN (23:14)
--- NOTE | 2019-05-14 23:41 | HP ---
PRIMARY CARE PHYSICIAN: Sabas Marrero MD CHIEF COMPLAINT: Dialysis catheter malfunction. HISTORY OF PRESENT ILLNESS: The patient is an 83-year-old male with end-stage renal disease, on hemodialysis, Tuesday, Tuesday, Tuesday, presented to the emergency room with dialysis catheter malfunction. The patient is a poor historian and not much information is available from the patient. He denies any chest pain, shortness of breath, palpitations, fever, or chills at this time. In the emergency room, his initial vital signs showed temperature 98.1 with respirations of 16, pulse rate of 136 with blood pressure of 139/66 with O2 saturation 99% on room air. His potassium was 5.4 with BUN 129, creatinine 13.08. PAST MEDICAL HISTORY: 1. End-stage renal disease, on hemodialysis. 2. Paroxysmal atrial fibrillation, followed by Dr. Lopez. He is scheduled to see Dr. Henriquez. 3. Generalized anxiety. 4. Essential tremors. 5. Gait instability. 6. History of aortic aneurysm. 7. History of vitamin D deficiency. 8. Degenerative joint disease. 9. Benign prostatic hypertrophy. 10. Sick sinus syndrome status post pacemaker placement. 11. Dementia. 12. Hyperlipidemia. 13. Chronic anemia secondary to renal insufficiency. PAST SURGICAL HISTORY: 1. Dialysis access. 2. Appendectomy. 3. Multiple orthopedic procedures. 4. Cardiac catheterization. 5. Right temporal artery biopsy. 6. Basal cell cancer removal. 7. Eye surgery. 8. Pacemaker placement, [facility] in 2010. 9. Endovascular repair of AAA. 10. Right inguinal hernia repair. 11. Colonoscopy. 12. EGD. ALLERGIES: THE PATIENT IS ALLERGIC TO IODINE, CODEINE, ANTIHISTAMINE, BEE STING, SCORPION. HE IS ALSO LACTOSE AND CAFFEINE INTOLERANT. SOCIAL HISTORY: The patient currently lives at home with his . He is . His is the primary decision maker. He is full code. FAMILY HISTORY: Brother with cancer. Father with GA. Mother had complications of heart failure. CURRENT HOME MEDICATIONS: The patient is unable to recall any of his home medications. History is limited due to current mentation. No family at the bedside. REVIEW OF SYSTEMS: Limited due to current cognitive status. PHYSICAL EXAMINATION: VITAL SIGNS: As discussed above. GENERAL: An 83-year-old male, in no apparent distress. HEENT: Head, atraumatic and normocephalic. Sclerae anicteric. Moist mucous membranes. No oral lesion. NECK: Supple. No JVD. No carotid bruit. LUNGS: Showed diminished air entry at bilateral bases without any rhonchi or rales. HEART: S1, S2 present. Irregular, tachycardic. ABDOMEN: Soft, nontender. Bowel sounds present. EXTREMITIES: No edema or calf tenderness. NEUROLOGY: Grossly nonfocal. Moves all four extremities. PSYCHIATRY: The patient is a poor historian. He is pleasant, alert and awake. SKIN: Warm and dry. LYMPH NODES: No palpable lymph nodes in the neck. PERIPHERAL VASCULAR: There is soft thrill over the right upper extremity dialysis access. LABORATORY FINDINGS: EKG by my review showed sinus tachycardia versus atrial flutter with heart rate in 130s. Potassium 5.4 with BUN 129, creatinine 13.08. Hemoglobin 9.4 with WBC 4, platelet of 79. EKG by my review as discussed above. IMPRESSION: 1. Fistula malfunction. 2. End-stage renal disease, on hemodialysis, Tuesday, Tuesday, Tuesday. 3. Chronic atrial fibrillation/flutter with tachycardia. His heart rate is in 130s. 4. Hyperlipidemia. 5. Degenerative joint disease. 6. Sick sinus syndrome status post pacemaker. 7. Hyperlipidemia. 8. Anemia secondary to renal insufficiency. 9. Hypertension. 10. History of aortic aneurysm status post repair. PLAN: The patient is currently admitted on telemetry unit. He had a normal EF in 2018 per his PCP's office record from April 03. His home medications needs to be verified. I discussed with his spouse and will administer his nighttime medication. The family was instructed to bring all of his home medications. We will keep him n.p.o. past midnight for fistulogram. Nephrology has been consulted. Plan was discussed with the patient and the spouse. Job ID: [id number]
[2019-05-15 05:01] LABS: #Eosinphils 0.1 thou/uL (0.0-0.7); #Lymphocytes 1.1 thou/uL (1.20-3.40); #Monocytes 0.3 thou/uL (0.11-0.59); #Neutrophils 2.3 thou/uL (1.40-6.50); %Basophils 0.7 % (0.0-1.0); %Monocytes 8.5 % (0.0-10.0); %Neutrophils 59.7 % (42.0-75.0); Hemoglobin 8.6 g/dL (14.0-18.0); Mean Corpuscular HGB CONC 32.9 g/dL (32.0-36.0); Mean Corpuscular Hemoglobin 32.9 pg (27.0-31.0); Mean Corpuscular Volume 99.8 fL (78.0-98.0); Mean Platelet Volume 6.8 fL (7.4-10.4); Platelet Count 78 thou/uL (130-400); Red Blood Cell (RBC) Count 2.61 mill/uL (4.70-6.10); White Blood Cell (WBC) Count 3.8 thou/uL (4.8-10.8)
[2019-05-15 05:15] LABS: Anion Gap 18 mmol/L (10-20); Calc. Creatinine Clearance 5 mL/min (70-130); Calcium 8.6 mg/dL (7.8-10.44); Carbon Dioxide 22 mmol/L (23-31); Chloride 104 mmol/L (98-107); Estimated GFR-MDRD 4; Glucose 107 mg/dL (83-110); Potassium 5.2 mmol/L (3.5-5.1); Sodium 139 mmol/L (136-145)
[2019-05-15 05:27] LABS: BUN (Urea Nitrogen) 126 mg/dL (8.4-25.7)
[2019-05-15] MEDS ORDERED: EPOETIN ALFA-EPBX (ESRD) 4,000 UNIT/ML VIAL SC SCH (09:00)
--- NOTE | 2019-05-15 09:22 | CON ---
DATE OF CONSULTATION: HISTORY OF PRESENT ILLNESS: Mr. Stanley is an 83-year-old white male, who was admitted for nonfunctioning right AV fistula. He has not had dialysis since 5 days ago. Attempt to send him to the [facility] was not successful since they are closed for the next several days. He is admitted for further management of this nonfunctioning AV dialysis access. We are now being consulted for management of his ESRD. REVIEW OF SYSTEMS: No chest pain. No shortness of breath. No nausea. No vomiting. No diarrhea. No constipation. No productive cough. No fever or chills. No headache. No diplopia. No nausea. No vomiting. No hematochezia. No melena. No hematemesis. MEDICATIONS: Include: 1. Acetaminophen 650 mg q.4 p.r.n. 2. Eliquis 2.5 mg 1 tablet daily, currently on hold. 3. Aspirin 81 mg tablet once a day. 4. Dulcolax p.r.n. 5. Diltiazem 180 mg CD daily. 6. Metoprolol succinate 25 mg once a day. 7. Nitroglycerin p.r.n. PAST MEDICAL HISTORY: Includes: 1. 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 2. Chronic AFib. 3. Obstructive sleep apnea. 4. Dyslipidemia. 5. History of borderline dementia. 6. Status post low bladder outlet obstruction from bladder neck contracture. 7. Benign resting tremor. 8. BPH. PAST SURGICAL HISTORY: Status post cystoscopy with dilatation of the urethral stricture, status post AV fistula placement, status post cuffed-hemodialysis catheter placement, status post right hip surgery, status post right knee arthroscopy, status post right eye surgery for cataracts, status post right inguinal hernia repair, and status post bilateral knee replacement. SOCIAL HISTORY: The patient is . The patient is a group home patient. 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 He has one child, who lives in [facility]. No history of smoking. No alcohol. No drug abuse. Status post blood transfusion. ALLERGIES: CAFFEINE, CODEINE, IODINE, NOVOCAIN, AND ANTIHISTAMINES. TRAUMA: Status post right hip fracture. IMMUNIZATIONS: Up-to-date. HOSPITALIZATIONS: Please see past medical history. FAMILY HISTORY: No family history of ESRD. PHYSICAL EXAMINATION: VITAL SIGNS: Blood pressure is noted at 100/61, heart rate 131, respiratory rate 15, temperature 98.2, and pulse ox 99% on room air. GENERAL: Awake, alert, comfortable, not in distress. SKIN: Adequate turgor. HEENT: Pinkish conjunctivae. Anicteric sclerae. NECK: No neck mass. No carotid bruits. No JVD. CHEST: No deformities. LUNGS: Clear breath sounds. No wheezing. No crackles. HEART: Irregular, tachycardic. No murmurs. No gallops. No rubs. ABDOMEN: Globular, soft, and nontender. No masses. EXTREMITIES: No edema. No deformities. LABORATORY DATA: Laboratories of May 15, 2019: White count 3.8, hemoglobin 8.6. Sodium 139, potassium 5.2, chloride 104, carbon dioxide 22, BUN 126, creatinine 12.56, glucose 107, and calcium 8.6. ASSESSMENT AND PLAN: 1. Nonfunctioning right upper extremity AV fistula - for AV fistulogram. If they cannot open the access, we will consult Surgery for possible placement of a cuffed-hemodialysis catheter. 2. End-stage renal disease. Once the dialysis access is available, we will initiate hemodialysis with this patient. 3. Mild hyperkalemia. No indication for any Kayexalate or treatment with insulin or calcium gluconate. 4. Chronic atrial fibrillation, on beta blockers and Cardizem. Currently, Eliquis on hold due to planned surgical procedure. 5. Anemia. We will restart Epogen with this patient. Overall, agree with current management. Job ID: [id number]
[2019-05-15] MEDS ORDERED: Digoxin 0.5 MG/2 ML AMP SLOW IVP SCH (12:40)
--- NOTE | 2019-05-15 14:27 | PDOC.HOSPP ---
- Subjective Encounter Date: 05/15/19 Encounter Time: 14:25 Subjective: Mr. Stanley was seen today in follow-up of malfunctioning AV fistula. He was also found to be in Afib/aflutter. He is in dialysis now. He does not have any complaints. He denies chest pain or shortness of breath. - Objective Vital Signs & Weight: Vital Signs (12 hours) Temp Pulse Resp BP BP Pulse Ox 05/15/19 13:46 145 H 05/15/19 13:10 131 H 05/15/19 12:34 143 H 05/15/19 07:22 98.2 F 131 H 15 100/61 99 05/15/19 03:33 97.5 F L 126 H 21 H 95/57 L 98 Weight Weight 158 lb 6.4 oz I&O: 05/14/19 05/15/19 05/16/19 06:59 06:59 06:59 Intake Total 100 Output Total 250 Balance -150 Result Diagrams: 05/15/19 04:30 05/15/19 04:30 - Exam Eye: PERRL Heart: no gallops, no rubs, normal peripheral pulses, irregular, murmur present , II/IV Respiratory: CTAB Gastrointestinal: soft, non-tender, non-distended, normal bowel sounds, no palpable masses, no hepatomegaly Extremities: no cyanosis, no clubbing, no edema Hosp A/P (1) Malfunction of arteriovenous dialysis fistula Code(s): T82.590A - [facility] COMPL OF SURGICALLY CREATED ARTERIOVENOUS FISTULA, INIT Status: Acute (2) ESRD (end stage renal disease) on dialysis Code(s): N18.6 - END STAGE RENAL DISEASE; Z99.2 - DEPENDENCE ON RENAL DIALYSIS Status: Chronic (3) HTN (hypertension) Code(s): I10 - ESSENTIAL (PRIMARY) HYPERTENSION Status: Chronic Qualifiers: Hypertension type: essential hypertension Qualified Code(s): I10 - Essential (primary) hypertension (4) Paroxysmal atrial fibrillation Code(s): I48.0 - PAROXYSMAL ATRIAL FIBRILLATION Status: Chronic - Plan * Malfunctioning AV- Fistula- patient had temporary catheter placed for dialysis * Atrial fibrillation/ Atrial Flutter- Digoxin was given for rate control- he has refractory tachycardia and marginal blood pressure- will consult Cardiology * HTN- blood pressure is low normal
--- NOTE | 2019-05-15 15:42 | CON ---
DATE OF CONSULTATION: HISTORY OF PRESENT ILLNESS: An 83-year-old male patient, who I placed a fistula, left Aaron, in 08/2017. He has been dialyzing, utilizing that. It, however, has thrombosed and I have asked him regarding placement of a hemodialysis catheter temporary to allow dialysis until a fistulogram can be performed on , 2 days from now. ALLERGIES: ANTIHISTAMINES, CAFFEINE, CODEINE, IODINE. HABITS: Tobacco, none. Alcohol, none. MEDICATIONS: 1. B12. 2. Diltiazem. 3. Digoxin. 4. Fluoxetine. 5. Lorazepam. 6. Flecainide. 7. Ferrous sulfate. 8. Colace. 9. Folic acid. 10. MiraLAX. 11. Toprol-XL daily. 12. Protonix daily. PAST SURGICAL HISTORY: 1. Cystoscopy in 08/2018. 2. Aaron fistula, right arm, in 08/2017, I performed. 3. Pacemaker. 4. Endovascular repair of AAA. 5. Right inguinal hernia repair. 6. Colonoscopy. 7. EGD. 8. Dialysis fistula. 9. Appendectomy. 10. Temporal artery biopsy. 11. Skin cancer removal. 12. Eye surgery. PAST MEDICAL HISTORY: 1. The patient is mobile mostly in a wheelchair due to balance and arthritis problems. 2. He has paroxysmal atrial fibrillation, followed by Dr. Lopez. 3. End-stage renal disease, on maintenance dialysis. 4. Essential tremors. 5. History of aortic aneurysm status post endovascular repair. 6. DJD. 7. BPH. 8. Sick sinus syndrome with pacemaker. 9. Mild dementia. 10. Hyperlipidemia. 11. Chronic anemia. PHYSICAL EXAMINATION: VITAL SIGNS: Height 5 foot 9 inches, weight 158 pounds, BMI 23. HEAD, EARS, EYES, NOSE, AND THROAT: Unremarkable. LUNGS: Clear to auscultation. CARDIAC: Regular rate and rhythm without murmur or gallop. ABDOMEN: Soft and nontender. EXTREMITIES: Unremarkable. Aaron fistula, right arm, thrombosed. I can feel an arterial pulsation just beyond the arterial anastomosis at the right wrist. ASSESSMENT AND PLAN: 1. Dysfunctional Aaron fistula, right arm. Plan fistulogram . He will need iodine allergy prep the day prior. 2. Needs dialysis access in the interim due to the holiday, day, unable to do fistulogram in 48 hours. 3. Other medical problems as noted above. If he has an abnormal fistulogram and could not salvage this, I will need to place a cuffed tunneled dialysis catheter and we keep him n.p.o. in that situation. If they are able to regain function of the fistula, he can go to dialysis in [place]. He can eat. Job ID: [id number]
[2019-05-15] MEDS: Aspirin 81 mg Enteric Coated Tablet PO SCH (16:45)
[2019-05-15] MEDS ORDERED: Prevnar 13-Val Conj/PF 0.5 ML SYRINGE IM ONE (21:00)
[2019-05-15] MEDS: Ferrous Sulfate 325 MG TAB PO SCH (21:08)
[2019-05-15] MEDS: Docusate 100 MG CAP PO SCH (21:08)
[2019-05-15] MEDS: Magnesium Oxide 400 MG TAB PO SCH (21:08)
[2019-05-15] MEDS: Flecainide 50 MG TAB PO SCH (21:08)
--- NOTE | 2019-05-15 23:56 | CON ---
DATE OF CONSULTATION: 05/15/2019 HISTORY OF PRESENT ILLNESS: I am seeing Mr. Stanley at our [facility] as an electrophysiology java consultant. His problems are; 1. Recurrent atrial arrhythmias. a. Paroxysmal atrial fibrillation/atrial flutter. b. Previous Multaq, then more recently flecainide for rhythm suppression, now paroxysmal. 2. End-stage renal disease due to polycystic kidney disease. a. AV fistula malfunction noted from the current admission. 3. History of AV block prompting a dual-chamber pacemaker implantation in February 2011. a. RV lead fracture from the RV lead revision. The new RV lead and generator change on 05/04/2018. Currently with a [facility] DR dual-chamber device. 4. History of preserved LVEF by echo in 2018. 5. CHADS-VASc score elevated due to age, vascular heart disease, hypertension. ALLERGIES: ANTIHISTAMINES, ALKYLAMINE, CAFFEINE, CODEINE, IODINE AND NOVOCAIN. MEDICATIONS: At home include; 1. Diltiazem CD 180 mg p.o. b.i.d. 2. Magnesium oxide 1 capsule twice a day. 3. Blaine-3 fatty acid. 4. Metoprolol succinate 25 mg daily. 5. Docusate. 6. Cyanocobalamin. 7. Digoxin 0.125 mg daily. 8. Lorazepam. 9. Ferrous sulfate. 10. Duloxetine. 11. Pantoprazole. 12. Magnesium oxide. 13. Flecainide 50 mg twice a day. 14. Folic acid. 15. Polyethylene glycol. SUBJECTIVE: Mr. Stanley is here with coagulated AV fistula. He was evaluated by Dr. Manning and plans for revision is made. While on telemetry, he developed atrial flutter with rapid rates up to 130 beats per minute and eventually IV digoxin was given. Medications continued, currently back in sinus rhythm. He does not seem to be markedly symptomatic in this regard. Denies PND, orthopnea, or lower extremity edema. No fever, chills, or cough. Rest of his review of systems otherwise unremarkable. PAST MEDICAL HISTORY: As above. SOCIAL HISTORY: The patient is . No smoking, EtOH or drug abuse. His daughter is a nurse practitioner in [place]. FAMILY HISTORY: Not contributory. OBJECTIVE DATA: VITAL SIGNS: Blood pressure initially 100/61, heart rate 131, now blood pressure is 103/56, heart rate 76, respiratory rate 17, temperature 98.1 degrees Fahrenheit. GENERAL: Alert and oriented elderly man, in no apparent distress. NECK: Supple. Jugular veins not distended. CHEST: Coarse without crackles. HEART: Sounds are regular to rate and rhythm. No murmur or gallop. ABDOMEN: Benign. Bowel sounds positive. EXTREMITIES: Lower extremities without edema, clubbing, or cyanosis. Pulses are adequate. NEUROLOGIC: Nonfocal. MUSCULOSKELETAL: No joint swelling or deformity. SKIN: Without rash. DATABASE: EKG is reviewed. Initial EKG reveals an atrial flutter with 2:1 AV conduction. Morphology could be consistent with isthmus dependency. Also telemetry strips reveal multi subacute atrial flutter present, but likely the typical isthmus dependent flutter is most rapidly conducted. Subsequent sinus rhythm is seen. No evidence of definite pacemaker lead function is seen. LABORATORY DATA: White cell count of 3.8, hemoglobin 8.6, and platelet count is 78. Sodium 139, potassium 5.2, BUN is 126, and creatinine is 12.56. ASSESSMENT AND PLAN: Mr. Stanley is a very pleasant 83-year-old elderly gentleman with end-stage renal disease on dialysis, who also has a history of AV block, currently with adequate function dual-chamber pacemaker with relative recent RV lead revision. Most of atrial arrhythmias, previously Multaq was used, now on flecainide, which seems to be controlling his atrial arrhtyhmia episodes, reasonably well. He has a clotted AV fistula, which likely will need revision. I have seen this gentleman before and in the past we were considering performing a flutter ablation for him. Eventually, after discussion with his daughter, we agreed on conservative measures only. For now, I think it is reasonable to continue the current regimen. His episodes are paroxysmal and he is relatively asymptomatic in this regard. If felt necessary, the flutter ablation could be considered, although again I would contact the daughter regarding these plans before. Thank you again for allowing me to participate in the care of this patient. Job ID: [id number] [facility]
[2019-05-16 04:57] LABS: #Lymphocytes 0.8 thou/uL (1.20-3.40); #Monocytes 0.4 thou/uL (0.11-0.59); #Neutrophils 2.1 thou/uL (1.40-6.50); %Basophils 0.3 % (0.0-1.0); %Eosinophils 1.3 % (0.0-10.0); %Lymphocytes 24.3 % (21.0-51.0); %Monocytes 10.9 % (0.0-10.0); %Neutrophils 63.2 % (42.0-75.0); Hemoglobin 8.8 g/dL (14.0-18.0); Mean Corpuscular HGB CONC 33.2 g/dL (32.0-36.0); Mean Corpuscular Hemoglobin 33.2 pg (27.0-31.0); Mean Platelet Volume 6.8 fL (7.4-10.4); Platelet Count 81 thou/uL (130-400); RBC Distribution Width 12.9 % (11.5-14.5); Red Blood Cell (RBC) Count 2.65 mill/uL (4.70-6.10); White Blood Cell (WBC) Count 3.4 thou/uL (4.8-10.8)
[2019-05-16 05:20] LABS: Anion Gap 13 mmol/L (10-20); BUN (Urea Nitrogen) 44 mg/dL (8.4-25.7); Calc. Creatinine Clearance 9 mL/min (70-130); Calcium 8.4 mg/dL (7.8-10.44); Carbon Dioxide 29 mmol/L (23-31); Chloride 99 mmol/L (98-107); Estimated GFR-MDRD 9; Glucose 120 mg/dL (83-110); Potassium 4.1 mmol/L (3.5-5.1); Sodium 137 mmol/L (136-145)
[2019-05-16] MEDS: Digoxin 0.125 MG TAB PO SCH (08:38)
[2019-05-16] MEDS: Cyanocobalamin (Vitamin B-12) 1,000 MCG TAB PO SCH (08:38)
[2019-05-16] MEDS: Aspirin 81 mg Enteric Coated Tablet PO SCH (08:38)
[2019-05-16] MEDS: Magnesium Oxide 400 MG TAB PO SCH ×2 (08:39→20:21)
[2019-05-16] MEDS: Flecainide 50 MG TAB PO SCH ×2 (08:39→20:22)
[2019-05-16] MEDS: DULoxetine 30 MG CAP PO SCH (08:40)
[2019-05-16] MEDS: Ferrous Sulfate 325 MG TAB PO SCH ×2 (08:40→20:18)
[2019-05-16] MEDS: Folic Acid/Vit B Comp W-C PO SCH (08:40)
[2019-05-16] MEDS: Docusate 100 MG CAP PO SCH ×2 (08:40→20:20)
[2019-05-16] MEDS: Polyethylene Glycol 3350 17 GM Packet PO SCH (08:41)
--- NOTE | 2019-05-16 09:47 | PRG ---
DATE OF SERVICE: 05/16/2019 SUBJECTIVE: Mr. Stanley is an 83-year-old white male with ESRD-maintenance hemodialysis and was admitted due to a nonfunctional AV fistula. Unable to perform AV fistulogram at the present time. A surgical consult was done where a temporary femoral dialysis catheter was placed on the right femoral vein. The plan is for him to have an AV fistulogram this coming . He also developed paroxysmal atrial fibrillation while on dialysis. He was given digoxin and currently on maintenance digoxin. Cardiology consult has been done with Dr. Henriquez who decided to consider a conservative management until he can discuss it with the patient's daughter. No other complaints today. He is feeling better. My plan is to do a 3-hour hemodialysis today and place him back on his regular Tuesday, Tuesday, and Tuesday schedule. OBJECTIVE: VITAL SIGNS: Blood pressure 129/60, heart rate 73, respiratory rate 18, temperature 98.4, and pulse ox 100%. GENERAL: Awake, alert, comfortable, not in overt distress. SKIN: Adequate turgor. HEENT: Slightly pale conjunctivae. Anicteric sclerae. NECK: No neck mass. No carotid bruits. No JVD. CHEST: No deformities. LUNGS: Clear breath sounds. No wheezing. No crackles. HEART: Normal sinus rhythm. No murmur. No gallops. No rubs. ABDOMEN: Globular, soft, nontender. No masses. EXTREMITIES: No edema. No deformities. MEDICATIONS: Medications of May 16, 2019 was reviewed. LABORATORY DATA: Laboratories of May 16, 2019; white count 3.4, hemoglobin 8.8. Sodium 137, potassium 4.1, chloride 99, carbon dioxide 29, BUN 44, creatinine 6.27, glucose 120, and calcium 8.4. ASSESSMENT AND PLAN: 1. End-stage renal disease. We will continue current 3 times a week hemodialysis. We will plan for hemodialysis for 3 hours, then resume back on Tuesday for 3 hours and 45 minutes. Fluid removal only as tolerated. 2. Paroxysmal atrial fibrillation, currently on digoxin. Cardiology is following. 3. Anemia, continuing weekly Epogen and iron supplementation. 4. Clotted AV fistula-for plan AV fistulogram in a.m. 5. Recheck basic metabolic and CBC in a.m. Job ID: [id number]
[2019-05-16] MEDS: Sevelamer Carbonate 800 MG TAB PO SCH ×2 (11:55→17:12)
--- NOTE | 2019-05-16 12:22 | PDOC.HOSPP ---
- Subjective Encounter Date: 05/16/19 Encounter Time: 12:21 Subjective: Mr. Stanley was seen today in follow-up of malfunctioning AV- fistula. He does not have any complaints. He does not remember much of yesterday. - Objective Vital Signs & Weight: Vital Signs (12 hours) Temp Pulse Resp BP BP Pulse Ox 05/16/19 10:59 100 05/16/19 08:38 73 05/16/19 08:31 98.4 F 73 18 129/60 100 05/16/19 03:45 97.9 F 60 16 120/59 L Weight Weight 158 lb 6.4 oz I&O: 05/15/19 05/16/19 05/17/19 06:59 06:59 06:59 Intake Total 100 375 Output Total 250 1175 Balance -150 -800 Result Diagrams: 05/16/19 04:11 05/16/19 04:11 Hospitalist ROS - Medication Medications: Active Medications Generic Name Dose Route Start Last Admin Trade Name Freq PRN Reason Stop Dose Admin Aspirin 81 mg 05/15/19 09:00 05/16/19 08:38 Ecotrin PO 81 mg DAILY KAYCEE Administration Cyanocobalamin 1,000 mcg 05/16/19 09:00 05/16/19 08:38 Vitamin B-12 PO 1,000 mcg DAILY KAYCEE Administration Digoxin 0.125 mg 05/16/19 09:00 05/16/19 08:38 Lanoxin PO 0.125 mg DAILY KAYCEE Administration Diltiazem HCl 180 mg 05/15/19 21:00 05/16/19 08:41 Cardizem Cd PO 180 mg BID KAYCEE Administration Docusate Sodium 100 mg 05/15/19 21:00 05/16/19 08:40 Colace PO 100 mg BID KAYCEE Administration Duloxetine HCl 30 mg 05/16/19 09:00 05/16/19 08:40 Cymbalta PO 30 mg DAILY KAYCEE Administration Epoetin Balaji-epbx 7,500 unit 05/15/19 09:00 05/15/19 16:50 Retacrit SC 7,500 unit Q7D KAYCEE Administration Ferrous Sulfate 325 mg 05/15/19 21:00 05/16/19 08:40 Feosol PO 325 mg BID KAYCEE Administration Flecainide Acetate 50 mg 05/15/19 21:00 05/16/19 08:39 Tambocor PO 50 mg BID KAYCEE Administration Magnesium Oxide 400 mg 05/15/19 21:00 05/16/19 08:39 Magnesium Oxide PO 400 mg BID KAYCEE Administration Metoprolol Succinate 25 mg 05/16/19 09:00 05/16/19 08:40 Toprol Xl PO 25 mg DAILY KAYCEE Administration Pantoprazole Sodium 40 mg 05/16/19 09:00 05/16/19 08:39 Protonix PO 40 mg DAILY KAYCEE Administration Polyethylene Glycol 17 gm 05/16/19 09:00 05/16/19 08:41 Miralax PO Not Given DAILY KAYCEE Sevelamer Carbonate 1,600 mg 05/16/19 12:00 05/16/19 11:55 Renvela PO Not Given TID-WM KAYCEE Vitamin B Complex/Vit C/Folic Acid 1 tab 05/16/19 09:00 05/16/19 08:40 Nephro-Sammy Tablet PO 1 tab DAILY KAYCEE Administration - Exam Eye: PERRL Heart: RRR, no murmur, no gallops, no rubs, normal peripheral pulses Respiratory: CTAB, no wheezes, no rales, no ronchi, normal chest expansion Gastrointestinal: soft, non-tender, non-distended, normal bowel sounds, no palpable masses, no hepatomegaly Extremities: no cyanosis, no clubbing, no edema Hosp A/P (1) Malfunction of arteriovenous dialysis fistula Code(s): T82.590A - [facility] COMPL OF SURGICALLY CREATED ARTERIOVENOUS FISTULA, INIT Status: Acute (2) ESRD (end stage renal disease) on dialysis Code(s): N18.6 - END STAGE RENAL DISEASE; Z99.2 - DEPENDENCE ON RENAL DIALYSIS Status: Chronic (3) HTN (hypertension) Code(s): I10 - ESSENTIAL (PRIMARY) HYPERTENSION Status: Chronic Qualifiers: Hypertension type: essential hypertension Qualified Code(s): I10 - Essential (primary) hypertension (4) Paroxysmal atrial fibrillation Code(s): I48.0 - PAROXYSMAL ATRIAL FIBRILLATION Status: Chronic - Plan * Malfunctioning AV- Fistula- patient had temporary catheter placed for dialysis * Atrial fibrillation/ Atrial Flutter- Cardiology and EP evaluations appreciated - will continue Digoxin, Cardizem and Flecanide , and his episodes are more or less transient. Currently his heart rate is stable * HTN- blood pressure is low normal * ESRD- stable * Plan is for Fistulogram tomorrow
--- NOTE | 2019-05-16 15:16 | PDOC.CPN ---
- Subjective Date: 05/16/19 Time: 15:28 Interval history: The pt seen and examined. No overnight events. No cardiac complaints. - Objective Allergies/Adverse Reactions: Allergies Allergy/AdvReac Type Severity Reaction Status Date / Time Antihistamines - Alkylamine Allergy Mild Verified 08/11/18 16:15 caffeine Allergy Verified 08/11/18 16:15 codeine Allergy Verified 08/11/18 16:15 iodine Allergy Verified 08/11/18 16:15 Novacaine Allergy Uncoded 08/11/18 16:15 Visit Medications: Current Medications Acetaminophen (Tylenol) 650 mg PO Q4H PRN PRN Reason: Headache/Fever/Mild Pain (1-3) Aspirin (Ecotrin) 81 mg PO DAILY [facility] Last Admin: 05/16/19 08:38 Dose: 81 mg Bisacodyl (Dulcolax) 10 mg HI DAILYPRN PRN PRN Reason: Constipation Calcium Carbonate (Tums) 1,000 mg PO Q4H PRN PRN Reason: Heartburn or Indigestion Cyanocobalamin (Vitamin B-12) 1,000 mcg PO DAILY [facility] Last Admin: 05/16/19 08:38 Dose: 1,000 mcg Digoxin (Lanoxin) 0.125 mg PO DAILY [facility] Last Admin: 05/16/19 08:38 Dose: 0.125 mg Diltiazem HCl (Cardizem Cd) 180 mg PO BID [facility] Last Admin: 05/16/19 08:41 Dose: 180 mg Docusate Sodium (Colace) 100 mg PO BID [facility] Last Admin: 05/16/19 08:40 Dose: 100 mg Duloxetine HCl (Cymbalta) 30 mg PO DAILY [facility] Last Admin: 05/16/19 08:40 Dose: 30 mg Epoetin Balaji-epbx (Retacrit) 7,500 unit SC Q7D [facility] Last Admin: 05/15/19 16:50 Dose: 7,500 unit Ferrous Sulfate (Feosol) 325 mg PO BID [facility] Last Admin: 05/16/19 08:40 Dose: 325 mg Flecainide Acetate (Tambocor) 50 mg PO BID [facility] Last Admin: 05/16/19 08:39 Dose: 50 mg Magnesium Hydroxide (Milk Of Magnesium) 30 ml PO DAILYPRN PRN PRN Reason: Constipation Magnesium Oxide (Magnesium Oxide) 400 mg PO BID [facility] Last Admin: 05/16/19 08:39 Dose: 400 mg Metoprolol Succinate (Toprol Xl) 25 mg PO DAILY [facility] Last Admin: 05/16/19 08:40 Dose: 25 mg Nitroglycerin (Nitrostat) 0.4 mg PO Q5MIN PRN PRN Reason: Chest Pain [Lovaza] 1 Cap 1 cap PO DAILY [facility] Pantoprazole Sodium (Protonix) 40 mg PO DAILY [facility] Last Admin: 05/16/19 08:39 Dose: 40 mg Polyethylene Glycol (Miralax) 17 gm PO DAILY [facility] Last Admin: 05/16/19 08:41 Dose: Not Given Sevelamer Carbonate (Renvela) 1,600 mg PO TID-WM [facility] Last Admin: 05/16/19 11:55 Dose: Not Given Sodium Chloride (Flush - Normal Saline) 10 ml IVF PRN PRN PRN Reason: Saline Flush Vitamin B Complex/Vit C/Folic Acid (Nephro-Sammy Tablet) 1 tab PO DAILY [facility] Last Admin: 05/16/19 08:40 Dose: 1 tab Vital Signs & Weight: Vital Signs Temp Pulse Resp BP BP Pulse Ox 05/16/19 11:46 98.2 F 76 18 128/62 99 05/16/19 10:59 100 05/16/19 08:38 73 05/16/19 08:31 98.4 F 73 18 129/60 100 05/16/19 03:45 97.9 F 60 16 120/59 L Weight 158 lb 6.4 oz - Physical Exam Neck: supple neck Cardiac: irregularly regular Lungs: decreased breath sounds - Labs Result Diagrams: 05/16/19 04:11 05/16/19 04:11 - Telemetry Sinus rhythms and dysrhythmias: other (afib with A paced) - Assessment/Plan Assessment/Plan: 1. Prox Afib - well controlled HR with flecainide 50mg BID, Metoprolol, diltiazem and Digoxin; On ASA 81mg qd; not on OAC for now due to Anemia; may resume Eliquis 2.5mg BID with stable H&H; per Dr Henriquez's note, the pt's daughter agreed on conservative measures only until the pt becomes symptomatic. 2. Malfunction of arteriovenous dialysis fistula - revision tomorrow by Dr Manning 3. HTN - stable 4. ESRD - HD today 5. hx of [facility] dual chamber PM MAR reviewed Pt. seen and eval. by me. I agree with the A/P by the [employer].. Pt. is under the care of dr. Henriquez. irreg. rhythm. Chest clear.
[2019-05-16 15:24] LABS: HBSAg Index 0.48 S/CO (0-0.99); Hep B Surf Ag Non-Reactive S/CO (NonReactive)
[2019-05-16] MEDS ORDERED: predniSONE 50 MG TAB PO SCH (20:00)
[2019-05-17] MEDS ORDERED: predniSONE 50 MG TAB PO SCH ×4 (02:00→20:30)
[2019-05-17 04:57] LABS: #Lymphocytes 0.5 thou/uL (1.20-3.40); #Monocytes 0.1 thou/uL (0.11-0.59); #Neutrophils 1.6 thou/uL (1.40-6.50); %Basophils 0.1 % (0.0-1.0); %Eosinophils 0.2 % (0.0-10.0); %Lymphocytes 21.8 % (21.0-51.0); %Monocytes 3.4 % (0.0-10.0); %Neutrophils 74.5 % (42.0-75.0); Hemoglobin 10.1 g/dL (14.0-18.0); Mean Corpuscular HGB CONC 33.3 g/dL (32.0-36.0); Mean Corpuscular Hemoglobin 32.5 pg (27.0-31.0); Mean Corpuscular Volume 97.5 fL (78.0-98.0); Mean Platelet Volume 7.1 fL (7.4-10.4); Platelet Count 81 thou/uL (130-400); RBC Distribution Width 12.7 % (11.5-14.5); Red Blood Cell (RBC) Count 3.12 mill/uL (4.70-6.10); White Blood Cell (WBC) Count 2.2 thou/uL (4.8-10.8)
[2019-05-17 05:20] LABS: Anion Gap 16 mmol/L (10-20); BUN (Urea Nitrogen) 32 mg/dL (8.4-25.7); Calc. Creatinine Clearance 12 mL/min (70-130); Calcium 9.2 mg/dL (7.8-10.44); Carbon Dioxide 26 mmol/L (23-31); Chloride 98 mmol/L (98-107); Estimated GFR-MDRD 11; Glucose 136 mg/dL (83-110); Sodium 135 mmol/L (136-145)
[2019-05-17] MEDS ORDERED: diphenhydrAMINE 50 MG CAP PO SCH (08:00)
[2019-05-17] MEDS: Aspirin 81 mg Enteric Coated Tablet PO SCH (08:15)
[2019-05-17] MEDS: Sevelamer Carbonate 800 MG TAB PO SCH ×3 (08:15→16:42)
[2019-05-17] MEDS: Docusate 100 MG CAP PO SCH ×2 (08:15→21:37)
[2019-05-17] MEDS: DULoxetine 30 MG CAP PO SCH (08:15)
[2019-05-17] MEDS: Digoxin 0.125 MG TAB PO SCH (08:15)
[2019-05-17] MEDS: Cyanocobalamin (Vitamin B-12) 1,000 MCG TAB PO SCH (08:15)
[2019-05-17] MEDS: Magnesium Oxide 400 MG TAB PO SCH ×2 (08:16→20:49)
[2019-05-17] MEDS: Ferrous Sulfate 325 MG TAB PO SCH ×2 (08:16→20:49)
[2019-05-17] MEDS: Flecainide 50 MG TAB PO SCH ×2 (08:16→20:49)
[2019-05-17] MEDS: Folic Acid/Vit B Comp W-C PO SCH (08:18)
[2019-05-17] MEDS: Polyethylene Glycol 3350 17 GM Packet PO SCH (08:19)
--- NOTE | 2019-05-17 09:03 | PRG ---
DATE OF SERVICE: 05/17/2019 SERVICE: Renal Medicine. SUBJECTIVE: Mr. Stanley is an 83-year-old white male with ESRD, was admitted due to a nonfunctioning right upper extremity AV fistula. A temporary femoral dialysis catheter was placed. He is due for AV fistulogram today. He underwent emergent hemodialysis on the day of admission and on yesterday. He has no new complaints today. He denies any chest pain or shortness of breath. OBJECTIVE: VITAL SIGNS: Blood pressure 118/77, heart rate 65, respiratory rate 18, temperature 98.3, and pulse ox 99%. GENERAL: Noted to be awake, supine, comfortable, not in distress. SKIN: Adequate turgor. HEENT: He has pinkish conjunctivae. Anicteric sclerae. NECK: No neck mass. No carotid bruits. No JVD. CHEST: No deformities. LUNGS: Clear breath sounds. HEART: Normal sinus rhythm. No murmur. No gallops. No rubs. ABDOMEN: Globular, soft, and nontender. No masses. EXTREMITIES: No edema. No deformities. MEDICATIONS: Medication of May 17, 2019, was reviewed. LABORATORY DATA: Laboratories of May 17, 2019; white count 2.2, hemoglobin 10.1, and platelet count is 81,000. Sodium 135, potassium 5, chloride 98, carbon dioxide 26, BUN 32, creatinine 4.93, glucose 136, and calcium 9.2. ASSESSMENT AND PLAN: 1. End-stage renal disease, stable. We will continue current hemodialysis regimen on Tuesday, Tuesday, and Tuesday with fluid removal only as tolerated. 2. Leukopenia. We will continue to observe. 3. Anemia, stable. Currently, on weekly Epogen. 4. Nonfunctioning right upper extremity arteriovenous fistula - for arteriovenous fistulogram. Surgery has been consulted. No indication for any emergent hemodialysis. Job ID: [id number]
--- NOTE | 2019-05-17 10:37 | PDOC.HOSPP ---
- Subjective Encounter Date: 05/17/19 Encounter Time: 10:35 Subjective: Mr. Stanley was seen today in follow-up of malfunctioning AV Fistula. He does not have any complaints this morning. - Objective Vital Signs & Weight: Vital Signs (12 hours) Temp Pulse Resp BP BP Pulse Ox 05/17/19 08:15 65 05/17/19 08:05 98.3 F 65 18 118/77 99 05/17/19 04:20 98.2 F 60 18 126/62 98 Weight Weight 159 lb 12.8 oz I&O: 05/16/19 05/17/19 05/18/19 06:59 06:59 06:59 Intake Total 375 927 Output Total 1175 1215 Balance -800 -288 Result Diagrams: 05/17/19 04:25 05/17/19 04:25 Hospitalist ROS - Medication Medications: Active Medications Generic Name Dose Route Start Last Admin Trade Name Freq PRN Reason Stop Dose Admin Aspirin 81 mg 05/15/19 09:00 05/17/19 08:15 Ecotrin PO 81 mg DAILY KAYCEE Administration Cyanocobalamin 1,000 mcg 05/16/19 09:00 05/17/19 08:15 Vitamin B-12 PO 1,000 mcg DAILY KAYCEE Administration Digoxin 0.125 mg 05/16/19 09:00 05/17/19 08:15 Lanoxin PO 0.125 mg DAILY KAYCEE Administration Diltiazem HCl 180 mg 05/15/19 21:00 05/17/19 08:15 Cardizem Cd PO 180 mg BID KAYCEE Administration Docusate Sodium 100 mg 05/15/19 21:00 05/17/19 08:15 Colace PO 100 mg BID KAYCEE Administration Duloxetine HCl 30 mg 05/16/19 09:00 05/17/19 08:15 Cymbalta PO 30 mg DAILY [facility]E Administration Epoetin Balaji-epbx 7,500 unit 05/15/19 09:00 05/15/19 16:50 Retacrit SC 7,500 unit Q7D KAYCEE Administration Ferrous Sulfate 325 mg 05/15/19 21:00 05/17/19 08:16 Feosol PO 325 mg BID KAYCEE Administration Flecainide Acetate 50 mg 05/15/19 21:00 05/17/19 08:16 Tambocor PO 50 mg BID KAYCEE Administration Magnesium Oxide 400 mg 05/15/19 21:00 05/17/19 08:16 Magnesium Oxide PO 400 mg BID KAYCEE Administration Metoprolol Succinate 25 mg 05/16/19 09:00 05/17/19 08:29 Toprol Xl PO 25 mg DAILY [facility] Administration Pantoprazole Sodium 40 mg 05/16/19 09:00 05/17/19 08:16 Protonix PO 40 mg DAILY [facility] Administration Polyethylene Glycol 17 gm 05/16/19 09:00 05/17/19 08:19 Miralax PO Not Given DAILY KAYCEE Sevelamer Carbonate 1,600 mg 05/16/19 12:00 05/17/19 08:15 Renvela PO Not Given TID-WM K[facility]CEE Vitamin B Complex/Vit C/Folic Acid 1 tab 05/16/19 09:00 05/17/19 08:18 Nephro-Sammy Tablet PO 1 tab DAILY [facility]E Administration - Exam General Appearance: NAD Heart: RRR, no murmur, no gallops, no rubs, normal peripheral pulses Respiratory: CTAB, no wheezes, no rales, no ronchi, normal chest expansion, no tachypnea, normal percussion Gastrointestinal: soft, non-tender, non-distended, normal bowel sounds, no palpable masses, no hepatomegaly, no splenomegaly Extremities: no cyanosis, no edema Hosp A/P (1) Malfunction of arteriovenous dialysis fistula Code(s): T82.590A - [facility] COMPL OF SURGICALLY CREATED ARTERIOVENOUS FISTULA, INIT Status: Acute (2) ESRD (end stage renal disease) on dialysis Code(s): N18.6 - END STAGE RENAL DISEASE; Z99.2 - DEPENDENCE ON RENAL DIALYSIS Status: Chronic (3) HTN (hypertension) Code(s): I10 - ESSENTIAL (PRIMARY) HYPERTENSION Status: Chronic Qualifiers: Hypertension type: essential hypertension Qualified Code(s): I10 - Essential (primary) hypertension (4) Paroxysmal atrial fibrillation Code(s): I48.0 - PAROXYSMAL ATRIAL FIBRILLATION Status: Chronic - Plan * Malfunctioning AV- Fistula- plan is for Fistulogram tomorrow. due to his iodine allergy he will need to be pre-medicated * Atrial fibrillation/ Atrial Flutter- stable with the current regimen * HTN- blood pressure is low normal * ESRD- stable
--- NOTE | 2019-05-17 11:24 | OP ---
DATE OF PROCEDURE: 05/14/2019 PREOPERATIVE DIAGNOSIS: Thrombosed right Aaron fistula. POSTOPERATIVE DIAGNOSIS: Thrombosed right Aaron fistula. PROCEDURE PERFORMED: Right femoral vein Trialysis catheter. ANESTHESIA: 1% Xylocaine. DESCRIPTION OF PROCEDURE: With the patient at bedside, right groin was clipped of hair, prepared with ChloraPrep and draped in routine fashion. Local anesthetic of 1% Xylocaine was infiltrated in the skin and subcutaneous tissue about the operative site. Seldinger technique used to place a Trialysis catheter, removed the J-wire, securing the catheter with 3-0 nylon suture. Each port aspirated blood and flushed with heparin solution. Job ID: [id number]
--- NOTE | 2019-05-17 15:59 | PDOC.EP ---
- Subjective Date: 05/17/19 Time: 08:00 Interval History: follow up for arrhythmia management. Fistulagram postponed until tomorrow to premedicate for iodine allergy. No cardiac concerns or complaints today. - Review of Systems Constitutional: denies: chills, fever, malaise, sweats, weakness, other Respiratory: denies: cough, dry, hemoptysis, pleuritic pain, shortness of breath , SOB with excertion, sputum, wheezing, other Cardiology: denies: chest pain, edema, heart racing, light headedness, palpitations, passing out, pleuritic pain Gastrointestinal: denies: abdominal pain, constipation, diarrhea, hematochezia, melena, nausea, vomitting, other - Objective Allergies/Adverse Reactions: Allergies Allergy/AdvReac Type Severity Reaction Status Date / Time Antihistamines - Alkylamine Allergy Mild Verified 08/11/18 16:15 caffeine Allergy Verified 08/11/18 16:15 codeine Allergy Verified 08/11/18 16:15 iodine Allergy Verified 08/11/18 16:15 Novacaine Allergy Uncoded 08/11/18 16:15 Current Medications Acetaminophen (Tylenol) 650 mg PO Q4H PRN PRN Reason: Headache/Fever/Mild Pain (1-3) Aspirin (Ecotrin) 81 mg PO DAILY [facility] Last Admin: 05/17/19 08:15 Dose: 81 mg Bisacodyl (Dulcolax) 10 mg [place] DAILYPRN PRN PRN Reason: Constipation Calcium Carbonate (Tums) 1,000 mg PO Q4H PRN PRN Reason: Heartburn or Indigestion Cyanocobalamin (Vitamin B-12) 1,000 mcg PO DAILY [facility] Last Admin: 05/17/19 08:15 Dose: 1,000 mcg Digoxin (Lanoxin) 0.125 mg PO DAILY [facility] Last Admin: 05/17/19 08:15 Dose: 0.125 mg Diltiazem HCl (Cardizem Cd) 180 mg PO BID [facility] Last Admin: 05/17/19 08:15 Dose: 180 mg Diphenhydramine HCl (Benadryl) 50 mg PO 0830 [facility] Stop: 05/18/19 10:30 Docusate Sodium (Colace) 100 mg PO BID [facility] Last Admin: 05/17/19 08:15 Dose: 100 mg Duloxetine HCl (Cymbalta) 30 mg PO DAILY [facility] Last Admin: 05/17/19 08:15 Dose: 30 mg Epoetin Balaji-epbx (Retacrit) 7,500 unit SC Q7D [facility] Last Admin: 05/15/19 16:50 Dose: 7,500 unit Ferrous Sulfate (Feosol) 325 mg PO BID [facility] Last Admin: 05/17/19 08:16 Dose: 325 mg Flecainide Acetate (Tambocor) 50 mg PO BID [facility] Last Admin: 05/17/19 08:16 Dose: 50 mg Magnesium Hydroxide (Milk Of Magnesium) 30 ml PO DAILYPRN PRN PRN Reason: Constipation Magnesium Oxide (Magnesium Oxide) 400 mg PO BID [facility] Last Admin: 05/17/19 08:16 Dose: 400 mg Metoprolol Succinate (Toprol Xl) 25 mg PO DAILY [facility] Last Admin: 05/17/19 08:29 Dose: 25 mg Nitroglycerin (Nitrostat) 0.4 mg PO Q5MIN PRN PRN Reason: Chest Pain [Lovaza] 1 Cap 1 cap PO DAILY [facility] Pantoprazole Sodium (Protonix) 40 mg PO DAILY [facility] Last Admin: 05/17/19 08:16 Dose: 40 mg Polyethylene Glycol (Miralax) 17 gm PO DAILY [facility] Last Admin: 05/17/19 08:19 Dose: Not Given Prednisone (Prednisone) 50 mg PO 2030 [facility] Stop: 05/17/19 22:30 Prednisone (Prednisone) 50 mg PO 0230 [facility] Stop: 05/18/19 04:30 Prednisone (Prednisone) 50 mg PO 0830 [facility] Stop: 05/18/19 10:30 Sevelamer Carbonate (Renvela) 1,600 mg PO TID-WM [facility] Last Admin: 05/17/19 12:56 Dose: 1,600 mg Sodium Chloride (Flush - Normal Saline) 10 ml IVF PRN PRN PRN Reason: Saline Flush Vitamin B Complex/Vit C/Folic Acid (Nephro-Sammy Tablet) 1 tab PO DAILY [facility] Last Admin: 05/17/19 08:18 Dose: 1 tab Vital Signs & Weight: Vital Signs Temp Pulse Resp BP BP Pulse Ox 05/17/19 11:57 98.7 F 60 14 123/59 L 98 05/17/19 08:15 65 05/17/19 08:05 98.3 F 65 18 118/77 99 05/17/19 04:20 98.2 F 60 18 126/62 98 Weight 159 lb 12.8 oz I/O: I/O 05/16/19 05/17/19 05/18/19 06:59 06:59 06:59 Intake Total 375 927 Output Total 1175 1215 Balance -800 -288 - Physical Exam General: alert & oriented x3, appears well, no apparent distress, speech clear, affect appropriate HEENT: mucus membranes moist, normocephaly Neck: supple neck, midline trachea, no JVD/HJR, no masses, no bruit, no lymphadenopathy, no thromegaly Cardiology: regular rate and rhythm, PMI nondisplaced Lungs: clear to auscultation, normal breath sounds, no wheeze, rales, rhonchi Neurology: cranial nerve 2-12 intact, grossly intact, sensory function intact Abdomen: active bowel sounds, soft, no masses, no pulsations/bruits, no hepatosplenomegaly, HJR negative Extremities: dry, strong pulses, warm. negative: clubbing, cyanosis, erythema - Labs Result Diagrams: 05/17/19 04:25 05/17/19 04:25 - EKG Interpretation EKG shows: Sinus rhythm - Assessment/Plan Assessment/Plan: 1. atrial flutter - suppressed moderately well with flecainide 50mg BID - mostly SR since 05/15 - daughter prefers conservative medical management. Could consider CTI if desired in the future 2. ESRD - AVF malfunctioning this stay 3. Dual chamber [facility] [employer] pacemakerj 4. CHADS2-VASC: 4 - no OAC per daughter and patient request Continue medication treatment as currently ordered.
--- NOTE | 2019-05-17 17:03 | PRG ---
DATE OF SERVICE: 05/17/2019 Mr. Glen Stanley has a right arm Aaron fistula thrombosed. He has an iodine allergy. He underwent a steroid prep yesterday for his iodine allergy for Interventional Radiology to address his thrombosed fistula Aaron right. The interventional radiologist is not available do that today. He will undergo another steroid prep today for that procedure tomorrow. He is tentatively schedule for hemodialysis catheter placement if this fistula cannot be cleaned out and salvaged. We will obtain a vein mapping in case future fistula needs to be placed in other arm. Job ID: [id number]
--- NOTE | 2019-05-17 18:39 | ULT ---
EXAM: US Vessel Mapping Dialysis Acc PROVIDED CLINICAL HISTORY: End-stage renal disease COMPARISON: None FINDINGS: Right (in millimeters): Brachial artery: 7.8 Radial artery: 7.9 Ulnar artery: 4.2 Right basilic: Proximal upper: 1.9 Mid upper: 2 Distal upper: 2 ACF: 1.5 Proximal lower: 1.4 Mid lower: 1.4 Distal lower: 1.6 Right cephalic: Proximal upper: 4.7 Mid upper: 6.4 Distal upper: 5.6 ACF: 5.1 Proximal lower: 4.9 Mid lower: Not visualized Distal lower: Not visualized Left (in millimeters): Brachial artery: 5.7 Radial artery: 3.4 Ulnar artery: 3.1 Left basilic: Proximal upper: 3.5 Mid upper: 3 Distal upper: 3.3 ACF: 2.0 Proximal lower: 2.0 Mid lower: 1.7 Distal lower: 1.7 Left cephalic: Proximal upper: 4.5 Mid upper: 3.4 Distal upper: 4.7 ACF: 4.4 Proximal lower: 3.1 Mid lower: 2.7 Distal lower: 3 Right radial-cephalic AV fistula is noted, demonstrating some flow. IMPRESSION: Venous mapping as above.
[2019-05-17] MEDS: Milk Of Magnesia 30 ML UDCUP PO PRN (19:12)
[2019-05-18] MEDS ORDERED: predniSONE 50 MG TAB PO SCH ×4 (00:30→08:30)
[2019-05-18 04:57] LABS: #Lymphocytes 0.6 thou/uL (1.20-3.40); #Monocytes 0.2 thou/uL (0.11-0.59); #Neutrophils 4.8 thou/uL (1.40-6.50); %Basophils 0.3 % (0.0-1.0); %Eosinophils 0.1 % (0.0-10.0); %Lymphocytes 10.5 % (21.0-51.0); %Monocytes 3.2 % (0.0-10.0); %Neutrophils 85.8 % (42.0-75.0); Hemoglobin 8.8 g/dL (14.0-18.0); Mean Corpuscular HGB CONC 33.2 g/dL (32.0-36.0); Mean Corpuscular Volume 96.5 fL (78.0-98.0); Mean Platelet Volume 7.7 fL (7.4-10.4); Platelet Count 87 thou/uL (130-400); RBC Distribution Width 12.9 % (11.5-14.5); Red Blood Cell (RBC) Count 2.75 mill/uL (4.70-6.10); White Blood Cell (WBC) Count 5.6 thou/uL (4.8-10.8)
[2019-05-18 06:17] LABS: Anion Gap 18 mmol/L (10-20); BUN (Urea Nitrogen) 63 mg/dL (8.4-25.7); Calc. Creatinine Clearance 8 mL/min (70-130); Carbon Dioxide 26 mmol/L (23-31); Chloride 94 mmol/L (98-107); Estimated GFR-MDRD 7; Glucose 133 mg/dL (83-110); Potassium 5.1 mmol/L (3.5-5.1); Sodium 133 mmol/L (136-145)
[2019-05-18] MEDS ORDERED: diphenhydrAMINE 50 MG CAP PO SCH ×2 (06:30→08:30)
[2019-05-18] MEDS: Sevelamer Carbonate 800 MG TAB PO SCH ×3 (09:17→16:48)
[2019-05-18] MEDS ORDERED: Bupivacaine HCl 0.5%/Epinephrine 1:200,000/PF 30 ml Vial ONE (09:20)
--- NOTE | 2019-05-18 10:29 | PDOC.HOSPP ---
- Subjective Encounter Date: 05/18/19 Encounter Time: 10:27 Subjective: Mr. Stanley was seen today in follow-up of malfunction AV fistula. He does not have any complaints this morning. - Objective Vital Signs & Weight: Vital Signs (12 hours) Temp Pulse Resp BP BP Pulse Ox 05/18/19 07:35 97.7 F 68 18 115/56 L 97 05/18/19 04:00 97.8 F 69 18 111/54 L 97 Weight Weight 162 lb 1.6 oz I&O: 05/17/19 05/18/19 05/19/19 06:59 06:59 06:59 Intake Total 927 875 Output Total 1215 Balance -288 875 Result Diagrams: 05/18/19 04:17 05/18/19 04:17 Hospitalist ROS - Medication Medications: Active Medications Generic Name Dose Route Start Last Admin Trade Name Freq PRN Reason Stop Dose Admin Aspirin 81 mg 05/15/19 09:00 05/17/19 08:15 Ecotrin PO 81 mg DAILY [facility] Administration Cyanocobalamin 1,000 mcg 05/16/19 09:00 05/17/19 08:15 Vitamin B-12 PO 1,000 mcg DAILY [facility] Administration Digoxin 0.125 mg 05/16/19 09:00 05/17/19 08:15 Lanoxin PO 0.125 mg DAILY [facility] Administration Diltiazem HCl 180 mg 05/15/19 21:00 05/17/19 20:49 Cardizem Cd PO 180 mg BID [facility]CEE Administration Docusate Sodium 100 mg 05/15/19 21:00 05/17/19 21:37 Colace PO Not Given BID AKYCEE Duloxetine HCl 30 mg 05/16/19 09:00 05/17/19 08:15 Cymbalta PO 30 mg DAILY [facility] Administration Epoetin Balaji-epbx 7,500 unit 05/15/19 09:00 05/15/19 16:50 Retacrit SC 7,500 unit Q7D [facility]E Administration Ferrous Sulfate 325 mg 05/15/19 21:00 05/17/19 20:49 Feosol PO 325 mg BID [facility]E Administration Flecainide Acetate 50 mg 05/15/19 21:00 05/17/19 20:49 Tambocor PO 50 mg BID [facility]E Administration Magnesium Hydroxide 30 ml 05/15/19 14:44 05/17/19 19:12 Milk Of Magnesium PO 30 ml DAILYPRN PRN Administration Constipation Magnesium Oxide 400 mg 05/15/19 21:00 05/17/19 20:49 Magnesium Oxide PO 400 mg BID K[facility]CEE Administration Metoprolol Succinate 25 mg 05/16/19 09:00 05/17/19 08:29 Toprol Xl PO 25 mg DAILY [facility]E Administration Pantoprazole Sodium 40 mg 05/16/19 09:00 05/17/19 08:16 Protonix PO 40 mg DAILY [facility]E Administration Polyethylene Glycol 17 gm 05/16/19 09:00 05/17/19 08:19 Miralax PO Not Given DAILY KAYCEE Sevelamer Carbonate 1,600 mg 05/16/19 12:00 05/18/19 09:17 Renvela PO Not Given TID-WM [facility] Vitamin B Complex/Vit C/Folic Acid 1 tab 05/16/19 09:00 05/17/19 08:18 Nephro-Sammy Tablet PO 1 tab DAILY [facility]E Administration - Exam Eye: PERRL Heart: RRR, no murmur, no gallops, no rubs, normal peripheral pulses Respiratory: CTAB, no wheezes, no rales, no ronchi, normal chest expansion, no tachypnea Gastrointestinal: soft, non-tender, non-distended, normal bowel sounds, no palpable masses, no hepatomegaly Extremities: no cyanosis, no edema Hosp A/P (1) Malfunction of arteriovenous dialysis fistula Code(s): T82.590A - [facility] COMPL OF SURGICALLY CREATED ARTERIOVENOUS FISTULA, INIT Status: Acute (2) ESRD (end stage renal disease) on dialysis Code(s): N18.6 - END STAGE RENAL DISEASE; Z99.2 - DEPENDENCE ON RENAL DIALYSIS Status: Chronic (3) HTN (hypertension) Code(s): I10 - ESSENTIAL (PRIMARY) HYPERTENSION Status: Chronic Qualifiers: Hypertension type: essential hypertension Qualified Code(s): I10 - Essential (primary) hypertension (4) Paroxysmal atrial fibrillation Code(s): I48.0 - PAROXYSMAL ATRIAL FIBRILLATION Status: Chronic - Plan * Malfunctioning AV- Fistula-patient is s/p AV fistulogram * Await further recommendation from Nephrology * Atrial fibrillation/ Atrial Flutter- stable with the current regimen * HTN- blood pressure is low normal * ESRD- stable
--- NOTE | 2019-05-18 10:35 | SPC ---
Right upper extremity dialysis fistulogram Sonographic guided vascular access HISTORY: Renal failure. Poor function and difficulty in access of right upper extremity dialysis fist fernando Fluoroscopy time 1.0 minute. FINDINGS: After explaining the procedure and answering all questions, sonographic survey showed very small amount of flow within the right forearm cephalic fistula. Stents are in place. Arteriovenous anastomosis is patent. Sterile technique, buffered local anesthesia, sonographic guidance, and a 22-gauge needle were used t o carefully access the peripheral portion of the fistula. A 4 [place] sheath was placed. Serial imaging was performed. Arterial anastomosis is widely patent. There is a similar area of high-grade stenosis, estimated at 8 cm, over the most peripheral portion of the cephalic fistula. This extends to the level of the most peripheral vascular stent. A small amount of thrombus, nonocclusive, is seen within the stents. 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 At the level of the upper arm, the cephalic and basilic veins are widely patent. Superior vena cava i s patent. Catheter was removed. Patient tolerated the procedure well and was returned in unchanged condition. IMPRESSION: Very long segment area of severe stenosis involving the most peripheral portion of the ri ght forearm dialysis fistula, as detailed above, precludes successful balloon angioplasty. The cephalic vein of the upper arm appears of sufficient caliber and appearance to provide vascular a ccess as an upper arm fistula. Findings were called to Dr. Manning at the time of the exam. Code CR.
[2019-05-18] MEDS ORDERED: ePHEDrine/0.9% NaCl/PF SYRINGE 50 mg/10 ml ONE (10:43)
[2019-05-18] MEDS ORDERED: PHENYLEPHRINE-NS 100 MCG/ML 10 ML SYRINGE ONE (10:43)
[2019-05-18] MEDS ORDERED: PROPOFOL 200 MG/20 ML VIAL ONE (10:43)
[2019-05-18] MEDS: Aspirin 81 mg Enteric Coated Tablet PO SCH (10:46)
[2019-05-18] MEDS: Ferrous Sulfate 325 MG TAB PO SCH ×2 (10:47→20:36)
[2019-05-18] MEDS: Digoxin 0.125 MG TAB PO SCH (10:47)
[2019-05-18] MEDS: Docusate 100 MG CAP PO SCH ×2 (10:47→20:36)
[2019-05-18] MEDS: DULoxetine 30 MG CAP PO SCH (10:47)
[2019-05-18] MEDS: Flecainide 50 MG TAB PO SCH ×2 (10:48→20:36)
[2019-05-18] MEDS: Folic Acid/Vit B Comp W-C PO SCH (10:49)
[2019-05-18] MEDS: Magnesium Oxide 400 MG TAB PO SCH ×2 (10:49→20:36)
[2019-05-18] MEDS: Cyanocobalamin (Vitamin B-12) 1,000 MCG TAB PO SCH (10:50)
[2019-05-18] MEDS: Polyethylene Glycol 3350 17 GM Packet PO SCH (10:50)
--- NOTE | 2019-05-18 11:10 | PRG ---
DATE OF SERVICE: 05/18/2019 SERVICE: Renal Medicine. SUBJECTIVE: Mr. Stanley is an 83-year-old white male with known history of ESRD, was admitted due to clotted access. He has not been dialyzed for several days prior to admission. The concern was his potassium was worsening. His potassium was noted to have peaked at 5.4, and for that reason, he was admitted for initiation of dialysis. We did consult Surgery for placement of a temporary femoral dialysis catheter. He did undergo hemodialysis at that time, which is slightly improved the potassium from 5.4 to 5.2. He did receive another consecutive dialysis where we were able to lower the potassium to 4.1. AV fistulogram was done today, which showed unsuccessful angioplasty with this patient. A surgical consult has been redone with Dr. Manning for placement of a new AV fistula. The patient denies any chest pain or shortness of breath at the present time. OBJECTIVE: VITAL SIGNS: Blood pressure is 115/56, heart rate 68, respiratory rate 18, temperature 97.7, and pulse ox 97%. GENERAL: Noted to be awake, alert, comfortable, not in distress. SKIN: Adequate turgor. HEENT: He has pale conjunctivae. Anicteric sclerae. No neck mass. No carotid bruits. No JVD. CHEST: No deformities. LUNGS: Decreased breath sounds. HEART: Normal sinus rhythm. No murmur. No gallops. No rubs. ABDOMEN: Soft, nontender. No masses. EXTREMITIES: No edema. No deformities. LABORATORY DATA: Laboratories of May 18, 2019: White count 5.6, hemoglobin 8.8. Sodium 133, potassium 5.1, chloride 94, carbon dioxide 26, BUN 63, creatinine 7.43, glucose 133, and calcium 9.0. ASSESSMENT AND PLAN: 1. Hyperkalemia, slowly improving. Resolve with 3 consecutive hemodialysis. 2. End-stage renal disease. We will continue the 3 times a week hemodialysis regimen with this patient. Dialysis will be scheduled today. His regular dialysis day is Tuesday, Tuesday, and Tuesday. 3. Paroxysmal atrial fibrillation during this hospitalization, the patient was kept in the hospital due to development of a rapid atrial fibrillation. He was initially given digoxin at that time and currently has been placed on maintenance digoxin. EP Cardiology consult has been done. Recommendation to start flecainide at 50 mg p.o. b.i.d. was made. 4. Anemia, continuing weekly Epogen at 7500 units subcu daily. Please note, the patient currently on Cardizem and Toprol. We will recheck basic metabolic panel and CBC in a.m. Planned surgery to be done by Dr. Manning to address the issue of this clotted access as well as a possible placement of a cuffed-hemodialysis catheter. Please note, this patient has only a temporary dialysis access. Job ID: [id number]
[2019-05-18] MEDS ORDERED: CEFAZOLIN 2 GM in Premix Bag 1 BAG IVPB SCH (12:00)
[2019-05-18] MEDS ORDERED: Lidocaine 1% w/Epinephrine 1:100K 20 ML VIAL ONE (14:26)
[2019-05-18] MEDS ORDERED: Lidocaine 2% PF 5 ML VIAL ONE (14:26)
[2019-05-18] MEDS ORDERED: Heparin 5,000 UNITS/ML VIAL ONE ×2 (14:26→15:49)
[2019-05-18] MEDS ORDERED: Ioversol 68 % 50 ML VIAL ONE (14:26)
[2019-05-18] MEDS ORDERED: Heparin 10,000 UNITS/1 ML VIAL ONE ×2 (14:26→15:50)
[2019-05-18] MEDS ORDERED: Sodium Chloride 0.9% 10 ML ONE (14:26)
[2019-05-18] MEDS ORDERED: Protamine Sulfate 50 MG/5 ML VIAL ONE (14:26)
[2019-05-18] MEDS ORDERED: Bupivacaine PF 0.5% 30 ML VIAL ONE (14:26)
[2019-05-18] MEDS ORDERED: Midazolam HCl 2 mg/2 ml Vial ONE (14:28)
[2019-05-18] MEDS ORDERED: Fentanyl 100 MCG/2 ML VIAL ONE (14:33)
--- NOTE | 2019-05-18 15:26 | PDOC.BPN ---
- Brief Progress Note Patient not in room for AV fistula revision and could not be examined. Rhythm is stable. Continue flecainide. EP signing off.
[2019-05-18] MEDS ORDERED: Iopamidol 300 61% 100 ML VIAL FS ONE (16:43)
[2019-05-18] MEDS ORDERED: Acetaminophen 500 MG TAB PO PRN (16:56)
[2019-05-18] MEDS ORDERED: traMADol HCl 50 MG TAB PO PRN (16:56)
--- NOTE | 2019-05-18 17:07 | RAD ---
XR Chest 1 View Portable HISTORY: Central line placement COMPARISON: 10/01/2009 FINDINGS: There is a left-sided pacemaker device. A left internal jugular dialysis catheter has been placed with tip in the projection of the SVC. The heart size is normal. The lungs are well expanded without focal areas of consolidation, pneumothorax or pleural effusions. IMPRESSION: No radiographic evidence of acute cardiopulmonary process.
[2019-05-19 07:47] VITALS: TEMP 97.5
[2019-05-19] MEDS: Sevelamer Carbonate 800 MG TAB PO SCH ×2 (08:16→14:36)
--- NOTE | 2019-05-19 09:17 | PRG ---
DATE OF SERVICE: 05/19/2019 SUBJECTIVE: Mr. Stanley is an 83-year-old white male with ESRD and undergoing hemodialysis. He missed his dialysis yesterday. Since then, a new dialysis catheter was placed. No other complaints today. 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 He is currently on flecainide. OBJECTIVE: VITAL SIGNS: Blood pressure is 101/55, heart rate 68, respiratory rate 18, temperature 97.5, pulse ox 97%. GENERAL: Awake, alert, comfortable, not in distress. SKIN: Adequate turgor. HEENT: He has slightly pale conjunctivae. Anicteric sclerae. NECK: No neck mass. No carotid bruits. No JVD. CHEST: No deformities. LUNGS: Clear breath sounds. HEART: Normal sinus rhythm. No murmurs, no gallops, no rubs. ABDOMEN: Globular, soft, nontender. No masses. EXTREMITIES: No edema. No deformities. MEDICATIONS: Medications of May 19, 2019, was reviewed. LABORATORY DATA: Laboratories of May 18, 2019, white count 5.6, hemoglobin 8.8. Sodium 133, potassium 5.1, chloride 94, carbon dioxide 26, BUN 63, creatinine 7.43. ASSESSMENT AND PLAN: 1. End stage renal disease, hemodialysis for 4 hours today. Fluid removal as tolerated. 2. Paroxysmal atrial fibrillation-much improved with addition of flecainide. Cardiology is following. 3. Anemia, continuing weekly Epogen. Okay for discharge after dialysis. Job ID: [id number]
[2019-05-19] MEDS: Cyanocobalamin (Vitamin B-12) 1,000 MCG TAB PO SCH (14:31)
[2019-05-19] MEDS: Magnesium Oxide 400 MG TAB PO SCH (14:31)
[2019-05-19] MEDS: Folic Acid/Vit B Comp W-C PO SCH (14:31)
[2019-05-19] MEDS: Aspirin 81 mg Enteric Coated Tablet PO SCH (14:31)
[2019-05-19] MEDS: Flecainide 50 MG TAB PO SCH (14:31)
[2019-05-19] MEDS: Ferrous Sulfate 325 MG TAB PO SCH (14:31)
[2019-05-19] MEDS: DULoxetine 30 MG CAP PO SCH (14:32)
[2019-05-19] MEDS: Polyethylene Glycol 3350 17 GM Packet PO SCH (14:32)
[2019-05-19] MEDS: Docusate 100 MG CAP PO SCH (14:32)
[2019-05-19] MEDS: Digoxin 0.125 MG TAB PO SCH (14:32)
[2019-05-19] MEDS: Milk Of Magnesia 30 ML UDCUP PO PRN (14:37)
[2019-05-19 17:10] VITALS: BP 109/70
--- NOTE | 2019-05-21 08:07 | DIS ---
DATE OF ADMISSION: 05/14/2019 DATE OF DISCHARGE: 05/19/2019 DISCHARGE DISPOSITION: Home. FOLLOWUP: 1. Follow up with primary care physician, Dr. Sabas Marrero. 2. Follow up with Electrophysiology, Dr. Henriquez and primary women's basketball coach, Dr. Lopez. 3. Follow up with Dr. Michael Manning in 2 to 3 weeks. DISCHARGE MEDICATIONS: Same as admission medications. Low-dose aspirin was added. INPATIENT CLIENT MANAGER [employer]: 1. Nephrology, Dr. Betancourt. 2. Electrophysiology, Dr. Henriquez. 3. General Surgery, Dr. Manning. INPATIENT PROCEDURES: 1. On April,, the patient underwent right femoral vein Trialysis catheter. 2. On May,, the patient underwent right upper extremity dialysis fistulogram that showed very long segment area of severe stenosis involving the most peripheral portion of the right forearm dialysis fistula. BRIEF HOSPITAL COURSE: The patient is an 83-year-old male with end-stage renal disease, on hemodialysis, presented to the hospital with dialysis catheter malfunction on April,. Please refer to the history and physical for further details. The patient was admitted to the hospital with a diagnosis of dialysis fistula malfunction. He was monitored on telemetry unit due to persistent atrial flutter with heart rate in 130s. After restarting his home medications, his heart rate gradually improved. He was also evaluated by Electrophysiology, Dr. Henriquez, who recommended to continue home dose of flecainide along with beta blockers and digoxin. There was a delay in fistulogram due to holidays. The patient underwent fistulogram yesterday. Dialysis catheter has been placed by Dr. Manning. He underwent hemodialysis on the day of discharge. FINAL DIAGNOSES: 1. Dialysis fistula malfunction. 2. End-stage renal disease, on hemodialysis on Tuesday, Tuesday, and Tuesday. 3. Chronic atrial fibrillation/flutter with rapid ventricular response. Heart rate is controlled on his home regimen. 4. Hyperlipidemia. 5. Degenerative joint disease. 6. Sick sinus syndrome, status post pacemaker. 7. Anemia secondary to renal insufficiency. 8. Hypertension. 9. History of aortic aneurysm, status post repair. 10. Hyperkalemia, secondary to missed dialysis. 11. Hyponatremia. 12. Metabolic acidosis. 13. Pancytopenia. Plan was discussed with the patient in detail. He stated understanding. Job ID: [id number]
--- NOTE | 2019-05-21 10:43 | OP ---
DATE OF PROCEDURE: 05/18/2019 PREOPERATIVE DIAGNOSES: End-stage renal disease, dysfunctional fistula, Aaron right arm with stent mid fistula thrombosed, failure to salvage with fistulogram. PROCEDURES PERFORMED: Left IJ cuffed tunneled dialysis catheter, note right internal jugular vein was very small, not available. Right arm fistula, perforating branch antecubital vein to the proximal radial artery, outflow primary cephalic vein secondary basilic vein. Outflow cephalic vein calibrated to 4 mm without obstruction. Fistulogram revealed excellent outflow through the cephalic vein only. I did probe the basilic vein and it seemed to be patent, but evaluation intraoperatively revealed primary outflow cephalic vein. ANESTHESIA: Regional, TIVA, local 0.5% Marcaine 30 mL mixed with 1% xylocaine 30 mL. DESCRIPTION OF PROCEDURE: The patient was taken to the operating room under right upper extremity regional anesthesia and intravenous sedation. Neck and chest were prepared with ChloraPrep and draped in routine fashion. Local anesthetic was infiltrated in the skin and subcutaneous tissue about the operative sites. Ultrasound used to evaluate the right internal jugular vein, which was very small. Left internal jugular vein was large. The patient has a pacemaker in left subclavian vein. The trocar catheter was cannulated in the internal jugular vein, left and J-wire threaded, trocar cathter removed. Skin site was enlarged sharply. Stab incision was made over the left chest. Await for the pacemaker. Using the tunneling device, pre-curved [employer] cuffed-tunneled hemodialysis catheter tunneled between 2 incisions, placed the fabric cuff beneath the skin exit site. Catheter was secured with 2 interrupted sutures of 3-0 sterile nylon, sterile dressing applied. Small and medium size dilators were placed with J-wire in internal jugular vein and removed. Dilator and Peel-Away sheath placed over the J-wire under fluoroscopic visualization into the internal jugular vein outflow and J-wire and dilator removed. Catheter placed through the blayne sheath under fluoroscopic visualization, was placed in the superior vena cava and blayne sheath removed. Platysma was approximated with 4-0 Monocryl, skin with subdermal 4-0 Monocryl and Paraje glue applied. Sterile dressings applied. Each port aspirated blood flushed with saline solution and heparinized saline solution with 1000 units/mL indicating volume of the port. Attention was then turned to the right forearm. The proximal volar incision was made below the antecubital fossa longitudinally, carried down through skin and subcutaneous tissue and lengthened distally. The antecubital vein was very large and bifurcated in the basilic and cephalic vein. The basilic vein that was slightly fibrotic and firm. The perforating branch antecubital vein dissected free and branches were divided between clips. The brachial and proximal radial artery dissected free. The patient was given 6000 units of heparin intravenously. The perforating branch antecubital vein spatulated over branch points and interrogated with results as above. Longitudinal arteriotomy was made in the proximal radial artery after gaining vascular control with atraumatic vascular clamps and 2 cm anastomosis made between the perforating branch antecubital vein to the proximal radial artery with continuous suture of 6-0 Prolene, obtaining good hemostasis 6-0 Prolene with vascular clamps released. There was good flow in the cephalic vein outflow. Hemostasis was obtained. Avitene was used. The patient was given 25 mg of protamine intravenously. Subcutaneous tissue was approximated with 3-0 Monocryl, skin with subdermal 4-0 Monocryl, and Paraje glue applied. Job ID: [id number]
== END 2019-05-19 17:02 | disposition home or self-care (01) ==
LOC: ERS 13:35 → 2NO 20:19 → INTOOBSV 20:19
PROVIDERS: ADMIT Internal Medicine; ATTEND Internal Medicine
DX: T82.868A Thrombosis due to vascular prosthetic devices, implants and grafts, initial encounter (principal); I12.0 Hypertensive chronic kidney disease with stage 5 chronic kidney disease or end stage renal disease; N18.6 End stage renal disease; D63.1 Anemia in chronic kidney disease; Q61.3 Polycystic kidney, unspecified; I48.20 Chronic atrial fibrillation, unspecified; I48.92 Unspecified atrial flutter; I49.5 Sick sinus syndrome; E78.5 Hyperlipidemia, unspecified; E87.1 Hypo-osmolality and hyponatremia; E87.2 Acidosis; E87.5 Hyperkalemia; D61.818 Other pancytopenia; F41.9 Anxiety disorder, unspecified; G25.2 Other specified forms of tremor; G47.33 Obstructive sleep apnea (adult) (pediatric); M19.90 Unspecified osteoarthritis, unspecified site; Z79.01 Long term (current) use of anticoagulants; Z79.82 Long term (current) use of aspirin; Z79.899 Other long term (current) drug therapy; Z88.5 Allergy status to narcotic agent; Z88.8 Allergy status to other drugs, medicaments and biological substances; Z91.041 Radiographic dye allergy status; Z95.828 Presence of other vascular implants and grafts; Z99.2 Dependence on renal dialysis
CPT/HCPCS: 36901; 71045; 80048 ×5; 85025 ×5; 87340; 93005; 94760; 96372; 96374; 96375; 99285; C1752; C1769; G0365; G0378 ×7; Q5105; 36415; 90935; 93970; G0257; J0670; J0690; J1160; J1642; J1644; J2001; J2250; J2704; J2720; J3010; J7512; Q0163; Q9967; S0020

== ENCOUNTER 2019-07-12 06:54 | Day surgery (SDC) | payer MEDICARE, BC ==
[2019-07-11 15:33] VITALS: BMI 25.9
[2019-07-12 08:10] VITALS: BP 121/55; TEMP 97.4
--- NOTE | 2019-07-12 09:39 | SPC ---
EXAM: [facility] [place] INTRO CATH DIALY CIRC/AV S PROVIDED CLINICAL HISTORY: End-stage renal disease and right upper extremity arteriovenous dialysis fistula. Patient has multipl e collaterals over the right upper extremity and chest. Evaluate central circulation and arteriovenous dialysis fistula. COMPARISON: 05/18/2019 TECHNIQUE: After informed consent was obtained, patient was placed on the angiography table in the supine positi on. The right upper extremity arteriovenous dialysis fistula was evaluated with ultrasound. The right upper extremity was then meticulously prepped and draped in usual sterile fashion. Skin and sub cutaneous tissues were infiltrated with buffered 1% lidocaine for local anesthesia at the intended puncture site. The cephalic vein outflow was accessed utilizing micropuncture technique, and a 4 Fren ch introducer sheath was placed directed in the venous direction. A fistulogram and venogram to the SVC were performed. Manual compression was applied to the cephalic vein outflow to reflux the basilic vein outflow as the patient has a radial to antecubital vein anastomosis. The cephalic and basilic vein outflows were noted to be patent and had a similar appeara nce to the prior exam on 05/18/2019. However, the arterial venous anastomosis was revised since prior exam. Manual compression was applied to the venous outflow, but after multiple attempts, the arteriov enous anastomosis was unable to be refluxed on this examination due to brisk flow. Introducer sheath was removed, and hemostasis was achieved with direct pressure. Dry sterile dressing was placed. Patient tolerated the procedure well and without any complication. Patient was transported to radiology nurses holding area for further monitoring prior to discharge. FINDINGS: Right upper extremity arterial venous dialysis fistula. Operative note reports a proximal radial bette ry to antecubital vein anastomosis. Outflow is via a patent cephalic and basilic vein. The basilic vein outflow does appear larger in size, but the cephalic vein is also patent. Cephalic vein at the l evel shoulder is tortuous, but this was also noted on the prior fistulogram. The SVC does appear patent, but a tunneled left internal jugular vein hemodialysis catheter as well as leads from cardiac pacemaking device are noted in place which precludes adequate evaluation of the SVC. However, there is brisk flow through this region. After multiple attempts at occluding the venous outflows, the arteriovenous anastomosis was unable to be refluxed for further evaluation. Findings were discussed with Dr. Manning at the termination of the exam. Fluoroscopy: Time-2.5 minutes Dose-12,023 mGy centimeter squared IMPRESSION: 1. Patent left upper extremity arteriovenous dialysis fistula with venous outflow via both the cephal ic and basilic veins. Antecubital vein where visualized is patent. Arterial venous anastomosis was unable to be refluxed after multiple attempts. 2. While there is narrowing of the SVC due to cardiac pacemaking leads and tunneled hemodialysis cath eter in place, there does appear to be brisk flow throughout this region with washout of contrast. No significant number of collateral vessels are seen about the chest. There is a prominent superficia l collateral vessels seen involving the proximal arm which begins at the level of antecubital fossa which is noted on this examination after manual compression of the cephalic vein outflow.
[2019-07-12] MEDS ORDERED: Iopamidol 300 61% 100 ML VIAL FS ONE (13:51)
[2019-07-12] MEDS ORDERED: Heparin 1,000 UNITS/ML VIAL ONE (14:46)
== END 2019-07-12 09:40 | disposition home or self-care (01) ==
LOC: SPEC 06:54
PROVIDERS: ATTEND Specialist
PROC: B51W1ZZ Fluoroscopy of Dialysis Shunt/Fistula using Low Osmolar Contrast (ICD-10-PCS; principal; 2019-07-12)
DX: N18.6 End stage renal disease (principal); N40.0 Benign prostatic hyperplasia without lower urinary tract symptoms; F41.9 Anxiety disorder, unspecified; E78.5 Hyperlipidemia, unspecified; Z88.4 Allergy status to anesthetic agent; Z88.5 Allergy status to narcotic agent; Z88.8 Allergy status to other drugs, medicaments and biological substances; Z91.041 Radiographic dye allergy status
CPT/HCPCS: 36901; J1644; Q9967

== ENCOUNTER 2020-08-30 13:10 | Observation (INO) | payer MEDICARE, BC ==
[2020-08-30] MEDS ORDERED: Boostrix 0.5 ML (Tdap) VIAL ONE (13:38)
[2020-08-30 14:14] LABS: #Eosinphils 0.1 thou/uL (0.0-0.7); #Lymphocytes 0.5 thou/uL (1.20-3.40); #Monocytes 0.5 thou/uL (0.11-0.59); #Neutrophils 3.9 thou/uL (1.40-6.50); %Basophils 0.4 % (0.0-1.0); %Eosinophils 1.8 % (0.0-10.0); %Lymphocytes 9.6 % (21.0-51.0); %Monocytes 10.3 % (0.0-10.0); Hemoglobin 11.9 g/dL (14.0-18.0); Mean Corpuscular HGB CONC 32.9 g/dL (32.0-36.0); Mean Corpuscular Hemoglobin 30.9 pg (27.0-31.0); Mean Corpuscular Volume 93.9 fL (78.0-98.0); Mean Platelet Volume 7.9 fL (7.4-10.4); Platelet Count 68 thou/uL (130-400); RBC Distribution Width 15.7 % (11.5-14.5); Red Blood Cell (RBC) Count 3.86 mill/uL (4.70-6.10)
[2020-08-30 14:33] LABS: ALT (SGPT) 11 U/L (8-55); AST (SGOT) 18 U/L (5-34); Alkaline Phosphatase 84 U/L (40-110); Anion Gap 20 mmol/L (10-20); BUN (Urea Nitrogen) 32 mg/dL (8.4-25.7); Bilirubin, Total 0.6 mg/dL (0.2-1.2); Calc. Creatinine Clearance 0 mL/min (70-130); Calcium 9.3 mg/dL (7.8-10.44); Carbon Dioxide 23 mmol/L (23-31); Chloride 95 mmol/L (98-107); Glucose 93 mg/dL (83-110); Potassium 3.7 mmol/L (3.5-5.1); Sodium 134 mmol/L (136-145)
[2020-08-30 14:34] LABS: Digoxin 1.04 ng/mL (0.8-2.0)
[2020-08-30 14:36] LABS: INR-International Normal Ratio 1.2; PTT 37.1 sec (22.9-36.1); Prothrombin Time 15.1 sec (12.0-14.7)
[2020-08-30] MEDS ORDERED: Milk Of Magnesia 30 ML UDCUP PO PRN (15:01)
[2020-08-30] MEDS ORDERED: Lorazepam 0.5 MG TAB PO PRN (15:01)
[2020-08-30] MEDS ORDERED: Dextrose 5% in Water 1,000 ML IV PRN (15:16)
[2020-08-30] MEDS ORDERED: Dextrose 50% Abboject 50 ML SYRINGE SLOW IVP PRN (15:16)
[2020-08-30] MEDS ORDERED: hydrALAZINE 20 MG/ML VIAL SLOW IVP PRN (15:20)
[2020-08-30] MEDS ORDERED: hydrALAZINE 20 MG/ML VIAL ONE (17:39)
[2020-08-30] MEDS ORDERED: Ondansetron PF 4 MG/2 ML Vial IVP PRN (18:45)
[2020-08-30] MEDS ORDERED: Ondansetron ODT 4 MG TAB SL PRN (18:45)
[2020-08-30 19:08] VITALS: BMI 24.2
[2020-08-30] MEDS ORDERED: Calcium Carbonate 500 MG ChewTAB PO SCH (21:00)
[2020-08-30] MEDS: Docusate 100 MG CAP PO SCH (22:19)
[2020-08-30] MEDS: Flecainide 50 MG TAB PO SCH (22:20)
[2020-08-30] MEDS: Acetaminophen 325 MG TAB PO SCH (22:20)
[2020-08-30] MEDS: Magnesium Oxide 400 MG TAB PO SCH (22:20)
[2020-08-30] MEDS: Ferrous Sulfate 325 MG TAB PO SCH (22:21)
[2020-08-31 01:55] LABS: Bacteria/HPF None Seen HPF (None Seen); RBC/HPF 21-50 HPF (0-3); Squamous Epithelial None Seen HPF (0-3)
[2020-08-31 01:57] LABS: Bilirubin Negative (Negative); Blood, Urine 1+ (Negative); Clarity Clear (Clear); Glucose, Urine (Dipstick) Normal (Negative); Ketone, Urine Negative (Negative); Leukocyte Negative Leu/uL (Negative); Nitrite Negative (Negative); Protein, Urine (Dipstick) 200 mg/dL (Neg-Trace); Specific Gravity, Urine 1.014 (1.002-1.036); Urobilinogen Normal mg/dL (Less than 2); pH, Urine 7.5 (5.0-9.0)
[2020-08-31 01:58] LABS: Urine Culture Reflex No No
[2020-08-31] MEDS: Acetaminophen 325 MG TAB PO SCH ×2 (02:24→07:44)
[2020-08-31] MEDS ORDERED: Folic Acid/Vit B Comp W-C PO SCH (09:00)
[2020-08-31] MEDS ORDERED: DULoxetine 30 MG CAP PO SCH (09:00)
[2020-08-31] MEDS ORDERED: Cyanocobalamin (Vitamin B-12) 1,000 MCG TAB PO SCH (09:00)
[2020-08-31] MEDS ORDERED: Fish Oil 1,000 MG CAP PO SCH (09:00)
[2020-08-31] MEDS ORDERED: Digoxin 0.125 MG TAB PO SCH (09:00)
[2020-08-31] MEDS ORDERED: Polyethylene Glycol 3350 17 GM Packet PO SCH (09:00)
[2020-08-31] MEDS: Magnesium Oxide 400 MG TAB PO SCH (09:43)
[2020-08-31] MEDS: Flecainide 50 MG TAB PO SCH (09:45)
[2020-08-31] MEDS: Ferrous Sulfate 325 MG TAB PO SCH (09:45)
[2020-08-31] MEDS: Docusate 100 MG CAP PO SCH (09:46)
[2020-08-31 12:01] VITALS: BP 137/58; TEMP 97.4
== END 2020-08-31 12:30 ==
LOC: ERS 13:10 → ERHOLD 14:59 → 2SE 18:44
PROVIDERS: ADMIT Surgery; ATTEND Surgery
DX: R55 Syncope and collapse (principal); M47.812 Spondylosis without myelopathy or radiculopathy, cervical region; I10 Essential (primary) hypertension; I48.91 Unspecified atrial fibrillation; F03.90 Unspecified dementia, unspecified severity, without behavioral disturbance, psychotic disturbance, mood disturbance, and anxiety; I25.10 Atherosclerotic heart disease of native coronary artery without angina pectoris; N19 Unspecified kidney failure; Z79.01 Long term (current) use of anticoagulants; Z79.899 Other long term (current) drug therapy; Z88.2 Allergy status to sulfonamides; Z88.4 Allergy status to anesthetic agent; Z88.5 Allergy status to narcotic agent; Z88.8 Allergy status to other drugs, medicaments and biological substances; Z91.011 Allergy to milk products; Z91.030 Bee allergy status; Z91.041 Radiographic dye allergy status; Z95.0 Presence of cardiac pacemaker; Z96.641 Presence of right artificial hip joint; Z96.651 Presence of right artificial knee joint; W18.30XA Fall on same level, unspecified, initial encounter; Z99.2 Dependence on renal dialysis
CPT/HCPCS: 70450; 72125; 73080; 80053; 80162; 81001; 82550; 84484; 85025; 85610; 85730; 87086; 90715; 93005; 94640; G0378 ×3; 36415; 90471; 96374; J0360; J7620

== ENCOUNTER 2020-09-19 10:43 | Inpatient (IN) | payer MEDICARE, BC ==
[2020-09-19 11:44] LABS: #Eosinphils 0.1 thou/uL (0.0-0.7); #Lymphocytes 0.6 thou/uL (1.20-3.40); #Monocytes 0.5 thou/uL (0.11-0.59); #Neutrophils 3.5 thou/uL (1.40-6.50); %Basophils 0.3 % (0.0-1.0); %Eosinophils 1.2 % (0.0-10.0); %Lymphocytes 13.4 % (21.0-51.0); %Monocytes 10.1 % (0.0-10.0); Hemoglobin 8.6 g/dL (14.0-18.0); Mean Corpuscular HGB CONC 31.6 g/dL (32.0-36.0); Mean Corpuscular Hemoglobin 28.7 pg (27.0-31.0); Mean Corpuscular Volume 90.9 fL (78.0-98.0); Mean Platelet Volume 7.6 fL (7.4-10.4); Platelet Count 98 thou/uL (130-400); RBC Distribution Width 16.8 % (11.5-14.5); Red Blood Cell (RBC) Count 2.99 mill/uL (4.70-6.10); White Blood Cell (WBC) Count 4.7 thou/uL (4.8-10.8)
[2020-09-19 12:03] LABS: Phosphorus 4.2 mg/dL (2.3-4.7)
[2020-09-19 12:10] LABS: ALT (SGPT) 14 U/L (8-55); AST (SGOT) 14 U/L (5-34); Albumin 3.5 g/dL (3.4-4.8); Alkaline Phosphatase 61 U/L (40-110); Anion Gap 19 mmol/L (10-20); BUN (Urea Nitrogen) 114 mg/dL (8.4-25.7); Bilirubin, Total 0.6 mg/dL (0.2-1.2); Calc. Creatinine Clearance 0 mL/min (70-130); Calcium 8.3 mg/dL (7.8-10.44); Carbon Dioxide 21 mmol/L (23-31); Chloride 98 mmol/L (98-107); Globulin 2.4 g/dL (2.4-3.5); Glucose 96 mg/dL (83-110); Magnesium 2.5 mg/dL (1.6-2.6); Potassium 5.3 mmol/L (3.5-5.1); Protein, Total 5.9 g/dL (5.8-8.1); Sodium 133 mmol/L (136-145)
[2020-09-19] MEDS ORDERED: Acetaminophen 325 MG TAB PO PRN (14:51)
[2020-09-19] MEDS ORDERED: Ondansetron ODT 4 MG TAB PO PRN (14:51)
[2020-09-19 15:43] LABS: HBSAg Index 0.49 S/CO (0-0.99); Hep B Surf Ag Non-Reactive S/CO (NonReactive)
[2020-09-20 02:04] LABS: SARS-CoV-2 NAA Rapid Test Not Detected (NotDetected)
[2020-09-20 04:52] LABS: #Eosinphils 0.1 thou/uL (0.0-0.7); #Lymphocytes 0.8 thou/uL (1.20-3.40); #Monocytes 0.4 thou/uL (0.11-0.59); #Neutrophils 2.8 thou/uL (1.40-6.50); %Basophils 0.7 % (0.0-1.0); %Eosinophils 3.3 % (0.0-10.0); %Lymphocytes 18.2 % (21.0-51.0); %Monocytes 9.8 % (0.0-10.0); Hemoglobin 8.2 g/dL (14.0-18.0); Mean Corpuscular HGB CONC 32.3 g/dL (32.0-36.0); Mean Corpuscular Hemoglobin 29.2 pg (27.0-31.0); Mean Corpuscular Volume 90.2 fL (78.0-98.0); Mean Platelet Volume 7.6 fL (7.4-10.4); Platelet Count 108 thou/uL (130-400); RBC Distribution Width 16.9 % (11.5-14.5); Red Blood Cell (RBC) Count 2.81 mill/uL (4.70-6.10); White Blood Cell (WBC) Count 4.2 thou/uL (4.8-10.8)
[2020-09-20 05:07] LABS: Anion Gap 20 mmol/L (10-20); BUN (Urea Nitrogen) 118 mg/dL (8.4-25.7); Calc. Creatinine Clearance 4 mL/min (70-130); Calcium 8.9 mg/dL (7.8-10.44); Carbon Dioxide 19 mmol/L (23-31); Chloride 99 mmol/L (98-107); Glucose 88 mg/dL (83-110); Potassium 5.4 mmol/L (3.5-5.1); Sodium 133 mmol/L (136-145)
[2020-09-20] MEDS ORDERED: Milk Of Magnesia 30 ML UDCUP PO PRN (08:30)
[2020-09-20] MEDS ORDERED: Ioversol 68 % 50 ML VIAL ONE (08:56)
[2020-09-20] MEDS ORDERED: Bupivacaine 0.25% HCL 30 ML VIAL ONE (08:56)
[2020-09-20] MEDS ORDERED: Heparin 10,000 UNITS/ 10 ML VIAL ONE ×2 (08:56→11:06)
[2020-09-20] MEDS ORDERED: Protamine Sulfate 50 MG/5 ML VIAL ONE (08:56)
[2020-09-20] MEDS ORDERED: Heparin 5,000 UNITS/ML VIAL ONE (08:56)
[2020-09-20] MEDS ORDERED: Lidocaine 1% w/Epinephrine 1:100K 20 ML VIAL ONE (08:56)
[2020-09-20] MEDS ORDERED: Sodium Chloride 0.9% 0 ML ONE (08:56)
[2020-09-20] MEDS ORDERED: Fentanyl 100 MCG/2 ML VIAL ONE (09:19)
[2020-09-20] MEDS: Cyanocobalamin (Vitamin B-12) 1,000 MCG TAB PO SCH (09:42)
[2020-09-20] MEDS: Docusate 100 MG CAP PO SCH ×2 (09:43→20:52)
[2020-09-20] MEDS: DULoxetine 30 MG CAP PO SCH (09:43)
[2020-09-20] MEDS: Folic Acid/Vit B Comp W-C PO SCH (09:43)
[2020-09-20] MEDS: Ferrous Gluconate 324 MG TAB PO SCH ×2 (09:43→20:52)
[2020-09-20] MEDS: Flecainide 50 MG TAB PO SCH ×2 (09:43→20:52)
[2020-09-20] MEDS ORDERED: Lidocaine 1% PF 5 ML VIAL ONE (09:55)
[2020-09-20] MEDS ORDERED: Rocuronium Bromide 10 MG/ML (10ML VIAL) ONE (09:55)
[2020-09-20] MEDS ORDERED: Glycopyrrolate 0.2 MG/ML 5 ML SYRINGE ONE (09:55)
[2020-09-20] MEDS ORDERED: PROPOFOL 200 MG/20 ML VIAL ONE (09:55)
[2020-09-20] MEDS ORDERED: Ondansetron PF 4 MG/2 ML Vial ONE (09:55)
[2020-09-20] MEDS ORDERED: Flecainide 50 MG TAB PO SCH (17:15)
[2020-09-21 04:53] LABS: #Eosinphils 0.1 thou/uL (0.0-0.7); #Monocytes 0.6 thou/uL (0.11-0.59); #Neutrophils 3.5 thou/uL (1.40-6.50); %Basophils 0.4 % (0.0-1.0); %Eosinophils 2.4 % (0.0-10.0); %Lymphocytes 18.8 % (21.0-51.0); %Monocytes 12.2 % (0.0-10.0); %Neutrophils 66.2 % (42.0-75.0); Hemoglobin 9.8 g/dL (14.0-18.0); Mean Corpuscular HGB CONC 31.3 g/dL (32.0-36.0); Mean Corpuscular Hemoglobin 28.8 pg (27.0-31.0); Mean Platelet Volume 7.5 fL (7.4-10.4); Platelet Count 126 thou/uL (130-400); RBC Distribution Width 18.5 % (11.5-14.5); Red Blood Cell (RBC) Count 3.41 mill/uL (4.70-6.10); White Blood Cell (WBC) Count 5.2 thou/uL (4.8-10.8)
[2020-09-21 05:10] LABS: Anion Gap 17 mmol/L (10-20); BUN (Urea Nitrogen) 39 mg/dL (8.4-25.7); Calc. Creatinine Clearance 8 mL/min (70-130); Calcium 9.8 mg/dL (7.8-10.44); Carbon Dioxide 27 mmol/L (23-31); Chloride 101 mmol/L (98-107); Glucose 90 mg/dL (83-110); Potassium 4.6 mmol/L (3.5-5.1); Sodium 140 mmol/L (136-145)
[2020-09-21] MEDS: Cyanocobalamin (Vitamin B-12) 1,000 MCG TAB PO SCH (09:12)
[2020-09-21] MEDS: Flecainide 50 MG TAB PO SCH ×3 (09:12→21:40)
[2020-09-21] MEDS: Ferrous Gluconate 324 MG TAB PO SCH ×3 (09:12→21:40)
[2020-09-21] MEDS: Docusate 100 MG CAP PO SCH ×4 (09:12→21:40)
[2020-09-21] MEDS: Folic Acid/Vit B Comp W-C PO SCH (09:12)
[2020-09-21] MEDS: DULoxetine 30 MG CAP PO SCH (09:12)
[2020-09-21] MEDS ORDERED: EPOETIN ALFA-EPBX (ESRD) 4,000 UNIT/ML VIAL SC SCH (10:15)
[2020-09-22 05:37] LABS: #Eosinphils 0.2 thou/uL (0.0-0.7); #Lymphocytes 0.9 thou/uL (1.20-3.40); #Monocytes 0.6 thou/uL (0.11-0.59); #Neutrophils 3.7 thou/uL (1.40-6.50); %Basophils 0.5 % (0.0-1.0); %Eosinophils 3.3 % (0.0-10.0); %Lymphocytes 15.6 % (21.0-51.0); %Monocytes 11.6 % (0.0-10.0); Hemoglobin 9.6 g/dL (14.0-18.0); Mean Corpuscular HGB CONC 31.5 g/dL (32.0-36.0); Mean Corpuscular Hemoglobin 29.2 pg (27.0-31.0); Mean Corpuscular Volume 92.7 fL (78.0-98.0); Mean Platelet Volume 7.8 fL (7.4-10.4); Platelet Count 98 thou/uL (130-400); RBC Distribution Width 18.7 % (11.5-14.5); Red Blood Cell (RBC) Count 3.29 mill/uL (4.70-6.10); White Blood Cell (WBC) Count 5.4 thou/uL (4.8-10.8)
[2020-09-22 05:58] LABS: Anion Gap 15 mmol/L (10-20); BUN (Urea Nitrogen) 48 mg/dL (8.4-25.7); Calc. Creatinine Clearance 6 mL/min (70-130); Calcium 9.9 mg/dL (7.8-10.44); Carbon Dioxide 26 mmol/L (23-31); Chloride 100 mmol/L (98-107); Glucose 106 mg/dL (83-110); Potassium 4.6 mmol/L (3.5-5.1); Sodium 136 mmol/L (136-145)
[2020-09-22] MEDS ORDERED: Heparin 10,000 UNITS/ 10 ML VIAL ONE (08:43)
[2020-09-22] MEDS: Folic Acid/Vit B Comp W-C PO SCH (14:11)
[2020-09-22] MEDS: Cyanocobalamin (Vitamin B-12) 1,000 MCG TAB PO SCH (14:11)
[2020-09-22] MEDS: Ferrous Gluconate 324 MG TAB PO SCH (14:11)
[2020-09-22] MEDS: Flecainide 50 MG TAB PO SCH ×2 (14:52→20:47)
[2020-09-22] MEDS: Docusate 100 MG CAP PO SCH ×2 (14:53→20:47)
[2020-09-22] MEDS: DULoxetine 30 MG CAP PO SCH (14:53)
[2020-09-23 09:18] VITALS: BMI 24.0
[2020-09-23] MEDS: Flecainide 50 MG TAB PO SCH (10:07)
[2020-09-23] MEDS: Docusate 100 MG CAP PO SCH (10:07)
[2020-09-23] MEDS: DULoxetine 30 MG CAP PO SCH (10:07)
[2020-09-23 16:02] VITALS: BP 138/68; TEMP 97.9
== END 2020-09-23 20:16 | DRG 252 ==
LOC: ERS 10:43 → T4-A 15:06 → 2SE 20:30
PROVIDERS: ADMIT Internal Medicine; ATTEND Hospitalist
PROC: 5A1D70Z Performance of Urinary Filtration, Intermittent, Less than 6 Hours Per Day (ICD-10-PCS; 2020-09-20)
PROC: 05JY0ZZ Inspection of Upper Vein, Open Approach (ICD-10-PCS; 2020-09-20)
PROC: 06HY33Z Insertion of Infusion Device into Lower Vein, Percutaneous Approach (ICD-10-PCS; 2020-09-20)
PROC: 0JH60XZ Insertion of Tunneled Vascular Access Device into Chest Subcutaneous Tissue and Fascia, Open Approach (ICD-10-PCS; 2020-09-20)
PROC: 0JPT3XZ Removal of Tunneled Vascular Access Device from Trunk Subcutaneous Tissue and Fascia, Percutaneous Approach (ICD-10-PCS; principal; 2020-09-22)
DX: T82.868A Thrombosis due to vascular prosthetic devices, implants and grafts, initial encounter (principal); N18.6 End stage renal disease; I12.0 Hypertensive chronic kidney disease with stage 5 chronic kidney disease or end stage renal disease; T82.590A Other mechanical complication of surgically created arteriovenous fistula, initial encounter; I82.611 Acute embolism and thrombosis of superficial veins of right upper extremity; Z51.5 Encounter for palliative care; Z66 Do not resuscitate; E87.5 Hyperkalemia; I48.0 Paroxysmal atrial fibrillation; D69.6 Thrombocytopenia, unspecified; Z96.641 Presence of right artificial hip joint; D63.1 Anemia in chronic kidney disease; G30.9 Alzheimer's disease, unspecified; F02.80 Dementia in other diseases classified elsewhere, unspecified severity, without behavioral disturbance, psychotic disturbance, mood disturbance, and anxiety; Z20.822 Contact with and (suspected) exposure to COVID-19; R26.9 Unspecified abnormalities of gait and mobility; K21.9 Gastro-esophageal reflux disease without esophagitis; R53.81 Other malaise; Z96.651 Presence of right artificial knee joint; Z99.2 Dependence on renal dialysis; Z88.5 Allergy status to narcotic agent; Z91.041 Radiographic dye allergy status; Z79.899 Other long term (current) drug therapy; Z88.8 Allergy status to other drugs, medicaments and biological substances; Z98.890 Other specified postprocedural states; Z79.01 Long term (current) use of anticoagulants; Y83.8 Other surgical procedures as the cause of abnormal reaction of the patient, or of later complication, without mention of misadventure at the time of the procedure
CPT/HCPCS: 0240U; 36415; 80048; 80053; 83735; 84100; 85025; 87340; 90935; 93005; C1752; G0257; J1644; J2405; J2704; J2720; J3010; Q5105; Q9967; S0020